=== PATIENT | female | born 1945 | race Caucasian/White ===

== ENCOUNTER → 2016-10-10 | Outpatient (CLI) | payer MEDICARE ==
[~2016-10-10] MED LIST: ALBUTEROL0.09 MG/A2 INH; AMLODIPINE10 MG; ANAPROX DS550 MG PO; ASPIRIN325 M2 PO; ASPIRIN81 M1 PO; B-1100 MG PO; B12,B-12,B 12500 MC1 PO; BALANCED B PO; CALCIUM 500 + D1 TA1 PO; CAPTOPRIL25 MG; CIPRO250 MG PO; CIPROFLOXACIN500 MG PO; CLINDAMYCIN HC300 MG PO; COREG3.125 MG PO; COUMADIN1 M1 PO; DARVOCET N 1001 TAB PO; DOCUSATE SODIU100 M2 PO; FLUOXETINE20 M1; FOLIC ACID1 MG PO; FOSAMAX70 M1 PO; HYDROCHLOROTHIA25 MG; HYDROCODONE BIT1 T11 PO; LIBRIUM10 MG PO; LOVASTATIN40 MG; MOTRIN800 MG PO; NORCO 325 MG-51 TAB PO; NORCO 5-325 TA1 EACH PO; POTASSIUM20 MEQ PO; PRAVACHOL20 MG PO; PRAVASTATIN SOD40 MG PO; PREDNICOT20 MG PO; TRAMADOL HCL50 MG PO; TRAMADOL50 MG PO; TRAZADONE HYDR100 MG PO; TRAZODONE HCL50 MG; TYLENOL W/CODEI1 TA2 PO; TYLENOL650 M1 PO; VICODIN 5/500 505 MG PO; VICODIN1 TAB PO; VITAMIN D50000 I3 PO; ZESTRIL20 MG PO; ZITHROMAX Z-PA250 MG PO
[2016-10-10 09:53] LABS: BASO # 0.1 10*3/uL (0.0-0.1); BASO % 0.7 % (0.0-1.0); EOS # 0.5 10*3/uL (0.0-0.4); EOS % 6.8 % (1.0-4.0); HEMATOCRIT 40.2 % (37.0-47.0); HEMOGLOBIN 13.1 g/dl (12.0-16.0); LYMPH # 1.1 10*3/uL (1.3-4.4); LYMPH % 14.7 % (27.0-41.0); MEAN CORPUSCULAR HGB CONC 32.6 g/dl (33.0-37.0); MEAN PLATELET VOLUME 10.7 fl (9.6-12.3); MONO # 0.7 10*3/uL (0.1-1.0); MONO % 9.1 % (3.0-9.0); NEUT # 5.2 10*3/uL (2.3-7.9); NEUT % 68.4 % (47.0-73.0); PLATELET COUNT AUTOMATED 186 10*3/uL (130-400); RED CELL DISTRI WIDTH 13.2 % (0-14.5); WHITE BLOOD COUNT 7.6 10*3/uL (4.8-10.8)
[2016-10-10 10:30] LABS: ALBUMIN 3.7 gm/dl (3.1-4.5); ALKALINE PHOSPHATASE 61 U/L (45-117); BILIRUBIN, TOTAL 0.2 mg/dl (0.2-1.0); BUN 13 mg/dl (7-24); CARBON DIOXIDE 28 mmol/L (21-32); CHLORIDE 105 mmol/L (98-107); CHOLESTEROL 198 mg/dL (<200); EST GLOM FILT AFRICAN AMERICAN > 60 ml/min; GLUCOSE 88 mg/dL (65-99); HDL CHOLESTEROL 65 mg/dl (40-60); LDL CHOLESTEROL 114 mg/dL (9-159); POTASSIUM 4.3 mmol/L (3.5-5.1); SGOT/AST 17 IU/L (3-35); SGPT/ALT 20 U/L (12-78); SODIUM 139 mmol/L (136-145); TOTAL PROTEIN 8.1 gm/dL (6.4-8.2); TRIGLYCERIDES 93 mg/dl (<150); VLDL CHOLESTEROL 19 mg/dL (6-40)
== END | disposition home or self-care (01) ==
LOC: LAB 09:29 → CT 13:00
PROVIDERS: Internal Medicine
DX: I48.0 Paroxysmal atrial fibrillation (principal); M54.5 Low back pain; E78.00 Pure hypercholesterolemia, unspecified; E55.9 Vitamin D deficiency, unspecified; G25.0 Essential tremor

== ENCOUNTER 2017-02-10 17:30 | Emergency (ER) | payer MEDICARE ==
[~2017-02-10] VITALS: Ht 167.6 cm; Wt 49.9 kg
[2017-02-10] MEDS ORDERED: CLINDAMYCIN150 MG PO (17:49)
== END 2017-02-10 18:23 | disposition home or self-care (01) ==
LOC: ED 17:30
DX: S61.412A Laceration without foreign body of left hand, initial encounter (principal); F17.200 Nicotine dependence, unspecified, uncomplicated; E78.5 Hyperlipidemia, unspecified; I10 Essential (primary) hypertension; M19.90 Unspecified osteoarthritis, unspecified site; Z86.73 Personal history of transient ischemic attack (TIA), and cerebral infarction without residual deficits; Z79.82 Long term (current) use of aspirin; Z79.899 Other long term (current) drug therapy; Z79.01 Long term (current) use of anticoagulants; Z88.0 Allergy status to penicillin; W26.0XXA Contact with knife, initial encounter; Y93.89 Activity, other specified; Y92.89 Other specified places as the place of occurrence of the external cause; Y99.9 Unspecified external cause status

== ENCOUNTER 2017-04-17 21:17 | Inpatient (IN) | payer MEDICARE ==
[~2017-04-17] VITALS: Ht 167.6 cm; Wt 47.6 kg
--- NOTE | ~2017-04-17 | PR ---
[place], [place] PROGRESS NOTE NAME: VINICIUS RODNEY [facility] #: [id number] UNIT #: [id number] ROOM: 509 DOCTOR: LINDA TORO MD,TAWNYA BIRTHDATE: [birth year] DOS: 04/24/2017 SUBJECTIVE: She had a bronchoscopy completed yesterday. Significant reduction and improvement in the cough and sputum clearance noted. Shortness of breath has been improving. Currently, the patient has been using oxygen supplementation with nasal cannula. OBJECTIVE: VITAL SIGNS: Normal temperature, respiratory rate 18, ____ 63, blood pressure 144/60-129/84. The pulse oxygen saturation on 3 liters nasal cannula 95% saturation. HEENT: Shows no new change. NECK: Supple. CARDIOVASCULAR: S1, S2 audible. LUNGS: The patient noted with [id number] decreased breath sounds bilaterally. ABDOMEN: Soft, nontender. LABORATORY DATA: The chest x-ray of the patient that was done was reviewed. Improvement with aeration for the patient were noted of the left lower lobe; however area of atelectasis still noted. The patient not completely resolved. Rib fractures noted for this patient. Very small left pleural fluid was visible. The remaining culture of the bronchial washing were noted without any bacterial growth for this patient at this time. Final culture results were pending. Gram stain of the bronchial washing yesterday was noted with many white blood cells, moderate epithelial cells. CBC of this morning for this patient's WBC count was noted normal, hemoglobin 9.9, hematocrit 30.8, platelet count was normal. BMP of the patient, BUN 70, creatinine was normal. IMPRESSION: 1. The patient with acute bacterial pneumonia with area of superimposed atelectasis status post bronchoscopy with mucus plug partial improvement was noted. The debridement cultures of the bronchial washing noted normal erickson. 2. Acute severe hypoxic respiratory failure, resolving gradually. 3. Recent rib fractures for this patient related to her fall. 4. Left pleural fluid related to current acute bacterial pneumonia. The pleural fluid noted small at this time would not require any thoracentesis. PLAN OF MANAGEMENT: Monitor culture results. Possible consideration of assisted facility to home discharge with home health by tomorrow. Oxygen sats on this patient has been ordered to be done prior to consideration of discharge planning. Other supportive plan of therapy to be continued. Usual care, other supportive plan of therapy and care. Additional treatment changes can be made based on progression of illness. Monitor cultures of the bronchial washings prior to consideration making any further changes in the treatment. [place], [place] PROGRESS NOTE NAME: VINICIUS RODNEY UNIT #: [id number] ROOM: [facility] DOCTOR: TAWNYA BUSTAMANTE MD BIRTHDATE: [birth year] TAWNYA MCKEON MD CM:YOUNG [id number] TAWNYA TORO MD 04/24/17 1408 interface
--- NOTE | ~2017-04-17 | PR ---
[place], [place] PROGRESS NOTE [id number] UN[facility] #: [id number] ROOM: 509 DOCTOR: LINDA TORO MD,TAWNYA BIRTHDATE: [birth year] DOS: 04/21/2017 SUBJECTIVE: She has been noted with same symptoms, has a cough, which remains nonproductive. Denies any symptoms of hemoptysis. Chest pain was described on the right side, which remains unchanged. OBJECTIVE: VITAL SIGNS: Recorded and show normal temperature, respiratory rate 20, heart rate 66, blood pressure 115/65. Pulse oxygen saturation on 6 L nasal cannula 94% saturation. HEENT: Shows no new change. NECK: Supple. CARDIOVASCULAR: S1, S2 audible. LUNGS: Noted decreased breath sounds, right lower lung. ABDOMEN: Soft, nontender. EXTREMITIES: Show no edema. LABORATORY DATA: CBC on 04/21/2017, WBC count 11.2, hemoglobin 11.3, hematocrit 34.0, and platelet count was normal. BMP that was done today showed normal BUN. BUN 29, creatinine was normal. PT/INR 3.5. Remaining electrolytes were normal. CT scan of the chest, which was ordered yesterday, there was no evidence of pulmonary embolism. Area of acute infiltration and consolidation noted in the right lower lobe, explains the patient's current acute deterioration of respiratory status and hypoxia. Some fluid was also noted in the right main stem bronchus. The patient most likely retained secretions, inability to expectorate. Evidence of centrilobular emphysema changes was also noted. Significant area of consolidation and infiltration was noted in the right lower lobe as well as the left lower lobe. Area of atelectasis debris in the lungs was noted as well as nodular infiltration was also noted. Right-sided rib fractures remained stable. IMPRESSION: 1. The patient has been noted with persistent acute severe hypoxic respiratory failure. 2. Infiltration in the lower lobe, acute pneumonia suspected as well as area with ____, inability to expectorate and clear secretions secondary to the current rib fractures. Overall severe debility was also noted as well. The PT/INR that was done today noted therapeutic. PLAN OF TREATMENT: Discontinue Coumadin for the patient. Plan bronchoscopy on Sunday morning for this patient. Continue current antibiotic, incentive spirometry as tolerated. Adequate pain management and other treatment. The risks and benefits of procedure have been discussed with the patient and she was agreeable for the procedure. [place], [place] PROGRESS NOTE NAME: TEREZA RODNEYJesus Rowley UNIT #: [id number] ROOM: [facility] DOCTOR: TAWNYA BUSTAMANTE MD BIRTHDATE: [birth year] TAWNYA MCKEON MD CM:PNMARGIE [id number] TAWNYA TORO MD 04/22/1731 interface
--- NOTE | ~2017-04-17 | PR ---
[place], [place] PROGRESS NOTE NAME: VINICIUS RODNEY UNIT #: [id number] ROOM: 509 DOCTOR: LINDA TORO MD,TAWNYA BIRTHDATE: [birth year] DOS: 04/23/2017 SUBJECTIVE: She has been noted with cough and produce moderate amount of sputum last night. She is currently noted n.p.o. past midnight for bronchoscopy that was planned for today. She denies any symptoms of hemoptysis or chest pain. The patient noted stable. OBJECTIVE: VITAL SIGNS: For the patient, which have recorded shows normal temperature, respiratory rate 20, heart rate 70, blood pressure 135/75 this morning. The pulse oxygen saturation on 1 liter nasal cannula 95% saturation, on 2 liters 95% saturation. HEENT: Examination shows no acute change. NECK: Supple. CARDIOVASCULAR: S1, S2 audible. LUNGS: The patient was noted with decreased breath sounds in the lungs bilaterally, scattered wheezing. No crackles. ABDOMEN: Soft, nontender. LABORATORY DATA: INR today was noted 1.6, which is subtherapeutic. IMPRESSION: 1. The patient with ____ fracture. The patient nondisplaced closed fractures after a fall on the right side. 2. Acute pneumonia and superimposed area of atelectasis. The patient off the left lower lobe as well. 3. Pneumonia in the right lower lobe as well. 4. Chronic anticoagulation, which has been currently noted and hold subtherapeutic for the bronchoscopy. 5. Acute severe hypoxic respiratory failure, which has been gradually improving. PLAN OF TREATMENT: Proceed with the bronchoscopy the patient as previously planned for this patient today. Continuation of the other previous treatment, therapy, plan and management as well. Usual care with the addition of treatment changes. The patient will be made based on progression of illness. Continue current antibiotics. Resumption of the Coumadin for this patient after the completion of bronchoscopy for this patient if it is uneventful. Other supportive therapy, plan of management care and plan. Continue bronchodilators and other treatment. We have to repeat chest x-ray in the morning to reassess the improvement in the atelectasis after completion of bronchoscopy. [place], [place] PROGRESS NOTE NAME: VINICIUS RODNEY UNIT #: [id number] ROOM: 509 DOCTOR: TAWNYA BUSTAMANTE MD BIRTHDATE: [birth year] TAWNYA MCKEON MD CM:PNTRANS [id number] TAWNYA TORO MD 04/23/17 2344 interface
--- NOTE | ~2017-04-17 | PROC NOTE ---
[place], [place] PROCEDURE NOTE [id number] UNIT #: [id number] ROOM: 509 DOCTOR: LINDA TORO MD,TAWNYA BIRTHDATE: [birth year] DOS: 04/23/2017 PREOPERATIVE DIAGNOSES: 1. Persistent airway atelectasis with ____ secretions with current maximum medical therapy and chest trauma. 2. Pneumonia. POSTOPERATIVE DIAGNOSES: 1. Persistent airway atelectasis with ____ secretions with current maximum medical therapy and chest trauma. 2. Pneumonia. PROCEDURE DESCRIPTION: Informed consent obtained for the patient. The patient brought to the OR and placed in supine position. Conscious sedation administered by the Anesthesia Department. After achieving appropriate sedation, airway introduced into the mouth. Bronchoscope advanced into the airway into laryngeal area. Epiglottis and vocal cords were seen. Vocal cords moving symmetrically with movements. Bronchoscope advanced to the vocal cord and tracheal lumen. The tracheal lumen was identified and noted with moderate amount of thick mucus secretion was suctioned out with the help of normal saline wash. The nabeel was noted sharp. Right upper, right middle, right lower, left upper, lingular lower lobe bronchial openings were noted. Mucus impaction noted in the right lower lobe endobronchial tree, as the left lobe endobronchial tree, secretion suctioned out from the right and the left main stem bronchi as well. The bronchial washing was sent to the laboratory for all the necessary culture. Procedure well tolerated by the patient without any complications. Postoperative findings will be discussed with the patient once the patient recovers from the effects of acute sedation. No changes in the treatment otherwise will be necessary. The patient's Coumadin will be resumed from this afternoon and the chest x-ray was ordered to be done tomorrow morning. TAWNYA MCKEON MD CM:PROCNOTE:PROCEDURE NOTE [id number] TAWNYA TORO MD
--- NOTE | ~2017-04-17 | PR ---
[place], [place] PROGRESS NOTE NAME: VINICIUS RODNEY UNIT #: [id number] ROOM: 509 DOCTOR: TAWNYA BUSTAMANTE MD BIRTHDATE: [birth year] DOS: 04/22/2017 SUBJECTIVE: The patient has been noted with moderate amount of sputum expectoration, which was described to be thick, but the patient this morning still noted pain in the right chest. The patient controlled with pain medications. She was using incentive spirometry as much as possible. Other treatment, the patient plan has been continued as well. The anticoagulation remains on hold for bronchoscopy planned for tomorrow. There were no symptoms of hemoptysis. OBJECTIVE: VITAL SIGNS: Normal temperature, respiratory rate 18, heart rate 65, blood pressure 142/65. Pulse oxygen saturation 3 liters nasal cannula 94% saturation. HEENT: Examination shows no new change. NECK: Supple. CARDIOVASCULAR: S1, S2 audible. LUNGS: The patient was noted decreased breath sounds still noted in the lungs bilaterally. Occasional wheezing. There were no crackles. ABDOMEN: Soft, nontender. LABORATORY DATA: 1. INR today was noted 2.9, which has been gradually decreased from previous level. As the anticoagulation remains on hold for the bronchoscopy. Overall severe debility with protein-calorie malnutrition was suspected with loss of muscle mass. 2. History of past nicotine use. 3. Retained endobronchial secretions of the patient causing areas of atelectasis, respiratory failure. 4. Rib fractures. The patient was also noted after the fall. PLAN OF MANAGEMENT: Proceed with bronchoscopy tomorrow morning as planned. Keep the patient off anticoagulation. Monitor the PT/INR. Other supportive therapy, plan of management. Continuation of the incentive spirometry and flutter valve as tolerated. Continue optimal pain management. Addition of treatment changes to be made based on progression of the illness. [place], [place] PROGRESS NOTE NAME: VINICIUS RODNEY UNIT #: [id number] ROOM: 509 DOCTOR: TAWNYA BUSTAMANTE MD BIRTHDATE: [birth year] TAWNYA MCKEON MD CM:PNTRANS [id number] TAWNYA TORO MD 04/23/17 0426 interface
--- NOTE | ~2017-04-17 | CON ---
[place], [place] REPORT OF CONSULTATION NAME: VINICIUS RODNEY [facility] #: [id number] UNIT #: [id number] ROOM: 509 DOCTOR: TAWNYA BUSTAMANTE MD BIRTHDATE: [birth year] DOS: 04/19/2017 CONSULTATION REQUESTED BY: Hospitalist services. REASON FOR CONSULTATION: To assess the patient for recent fall with contusion of the lung and others. HISTORY OF PRESENT ILLNESS: This is a 71-year-old female patient who has been admitted to the hospital on 04/17/2017. The patient fell down at home, as she is trying to get a coffee on the table and hitting the right side of the chest. The patient landed on the ground. She has not lost any consciousness or dizziness. She has been noted history of imbalance secondary to these problems which has been known previously. She was complaining of pain, which is described in the right side of the chest at that time, which gets worse with deep inspiratory efforts. The patient does have a mild cough without any sputum expectoration. She does not have any symptoms of hemoptysis. The patient denies symptoms of wheezing. REVIEW OF SYSTEMS: CONSTITUTIONAL: Generalized weakness and fatigue, was described without symptoms of fever or chills. EYES: Denies any burning, redness, or tenderness. EARS, NOSE AND THROAT: Denies sore throat, hoarseness, otalgia, or postnasal drainage. CARDIOVASCULAR: Denies anginal pain, edema or pain of the lower extremities. GASTROINTESTINAL: Denies dysphagia, nausea, vomiting, diarrhea, abdominal pain, hematemesis, melena, or abnormal weight loss history. GENITOURINARY: Denies dysuria, suprapubic pain, or hematuria. MUSCULOSKELETAL: Denies any acute joint pain, redness, or tenderness. CENTRAL NERVOUS SYSTEM: History of past CVA, seizure, left side weakness. The patient noted partial and imbalance because of that as well. SKIN: Denies lesions or rashes. Remaining systems were reviewed with the patient and were noted all negative. PAST MEDICAL HISTORY: 1. History of aortic valve stenosis. 2. History of depression. 3. Acute congestive heart failure, diastolic dysfunction. 4. Essential tremor. 5. Frequent fall because of past CVA and imbalance. 6. History of hyperlipidemia. 7. Essential hypertension. 8. Osteoarthritis and osteoporosis. 9. History of atrial fibrillation. 10. Nicotine dependence and use of alcohol. SOCIAL HISTORY: The patient stated that she is and have 2 children, one of the child , smoking started at a younger age, a pack of cigarettes per day. Denies any history of alcohol use. Denies any history of other illicit drug use, has been noted history of alcohol use in the form of beer. [place], [place] REPORT OF CONSULTATION NAME: VINICIUS RODNEY UNIT #: [id number] ROOM: [facility] DOCTOR: TAWNYA BUSTAMANTE MD BIRTHDATE: [birth year] FAMILY HISTORY: The patient's father related to myocardial infarction at age of 6060 years old. HOME MEDICATIONS: Noted use of ProAir HFA inhaler p.r.n. use, clindamycin, [place], Coreg, vitamin B12, metformin, pravastatin, tramadol, lisinopril, aspirin, Coreg and trazodone. She was also taking the Fosamax, vitamin D, and vitamin B complex. DRUG ALLERGIES: PENICILLINS. PHYSICAL EXAMINATION GENERAL: This is a 71-year-old female who has been noted currently comfortable, lying in the bed without any distress. Height of 5 feet 6 inches, weight of 105 pounds, BMI 16.9. VITAL SIGNS: Shows a normal temperature, respiratory rate 18-16, heart rate of 68-74, blood pressure 196/88-153/60. Pulse oxygen saturation on 2 L nasal cannula of 95% saturation. HEENT: Shows head was atraumatic. Eyes nonicterus. NECK: Supple. CARDIOVASCULAR: S1, S2 audible. LUNGS: Noted without any wheezing or crackles at the present time. Breath sounds are noted decreased bilaterally. ABDOMEN: Flat, soft, nontender. EXTREMITIES: Shows no edema. GENITOURINARY: Weakness of the left upper and left lower extremity. SKIN: No lesions or rashes. MUSCULOSKELETAL: No major deformities. LABORATORY DATA: INR on 04/17/2017 is 2.9, which is therapeutic. CMP on 04/17/2017 on admission, normal BUN and creatinine, potassium 3.4, minimally decreased. Sodium mildly decreased to 134. Urine drug screen positive for THC. CT scan of the head without contrast on 04/17/2017 was noted without any acute intracranial pathologies. INR for this morning was 2.1. BMP yesterday was noted as normal. Troponin on admission and followup was noted normal. Review of the radiology data, the chest x-ray as well as the right rib series fracture noted with nondisplaced right rib fracture due to age, the was noted with the rib series x-rays. Increased interstitial marking noted in the lungs bilaterally. Right mid lung capacity was also noted with possibility of pulmonary contusion in the differential diagnosis. IMPRESSION: 1. The patient who has been currently admitted to the hospital after falling resulting in rib fracture, 5th, 6th, 7th and 8th nondisplaced with current blunt chest trauma after a fall associated with possibility of pulmonary contusion. 2. History of chronic anticoagulation noted therapeutic anticoagulation. There was no evidence of hemothorax was noted. 3. Chest pain. The patient currently described to be related to the current rib fracture is treated with the pain medication management. 4. History of chronic osteoporosis and osteoarthritis. [place], [place] REPORT OF CONSULTATION NAME: VINICIUS RODNEY UNIT #: [id number] ROOM: [facility] DOCTOR: TAWNYA BUSTAMANTE MD BIRTHDATE: [birth year] 5. History of chronic nicotine dependence and possibility of chronic obstructive pulmonary disease. PLAN OF MANAGEMENT: Incentive spirometry adequate pain control as use of bronchodilators, abstinence from the tobacco use and nicotine replacement patches. No need of use of antibiotics. Repeat another chest x-ray this morning, PA lateral view to assess for any interval development progression, contusion of any new abnormalities to be reviewed. Other supportive therapy, plan of management and care. She was also noted partially uncontrolled hypertension, which already managed with the medications. Mild hypokalemia noted on admission had been already corrected by the primary care physician. She will be started on the bronchodilators to continue to mobilize secretions as well. Additional treatment changes need to be made based on the progression of the illness. Thank you for allowing me to participate in the care of this patient. TAWNYA MCKEON MD CM:CONSTR:REPORT OF CONSULTATION 1324 04/20/17 0320 interface
--- NOTE | ~2017-04-17 | CON ---
[place], [place] REPORT OF CONSULTATION NAME[id number] UNIT #: [id number] ROOM: 509 DOCTOR: VIKTOR DUFFYGAILGUADALUPE BIRTHDATE: [birth year] DOS: 04/20/2017 REASON FOR CONSULTATION: Aortic stenosis. ASSESSMENT: 1. Incidental finding of aortic stenosis on physical exam/echocardiogram. 2. Bilateral carotid bruit. 3. Hypertension. 4. Active tobacco abuse. 5. Coumadin treatment for unknown reason cardiac-cruz. 6. Unknown level of lipids. PLAN: 1. Consider holding aspirin while patient on Coumadin. 2. Repeat echocardiogram in 1 year. 3. Check fasting lipid panel. 4. Bilateral carotid duplex. 5. Blood pressure management will be deferred to PCP. 6. The patient has been completely asymptomatic, and we will defer any further cardiac workup at this time. 7. Followup in our clinic within 3-6 months. HISTORY OF PRESENT ILLNESS: The patient is a pleasant 71-year-old female unknown to our practice, was referred by Dr. Arteaga for evaluation of aortic stenosis. Apparently, the patient was brought into the hospital by her daughter after tripping and falling down with some pain on the right side. Full workup has been negative so far. No preceding cardiac symptoms. Never had any chest pain, chest pressure, heaviness or tightness. Never had any symptomatic palpitation, associated dizziness, lightheadedness or near syncope. The patient lives alone with her daughter, though. She quit driving. Occasionally, she can go shopping. She has some unsteady gait since her hip fracture, which was about a couple of years ago. She does use a cane and occasionally a walker. No change in what she could do now compared with 6 months ago. Sleeps on one pillow with no reported PND, orthopnea or pedal edema. No fever, no chills, no night sweats. The patient reporting significant decrease in appetite and weight loss. This has been going on for the past year. PAST MEDICAL HISTORY: As detailed in my assessment. SOCIAL HISTORY: The patient continues to smoke currently about half pack a day. No heavy alcohol or illicit drug abuse. FAMILY HISTORY: Both parents . Patient's mother when she was 5 years old; she does not know much about her mom. Her father at age 70. She has 3 brothers with no reported heart problems. CURRENT MEDICATIONS: Rocephin, Z-Elbert, Lasix, Nicoderm, trazodone, Coumadin, Coreg, albuterol, lisinopril, aspirin, Ativan, Restoril, Zofran, [place], Tylenol. ALLERGIES: THE PATIENT IS ALLERGIC TO PENICILLIN. [place], [place] REPORT OF CONSULTATION NAME: VINICIUS RODNEY UNIT #: [id number] ROOM: [facility] DOCTOR: MILA HOANG MD BIRTHDATE: [birth year] REVIEW OF SYSTEMS: Currently, the patient denies any headache, diplopia or blurry vision. No fever, no chills, no night sweats. No abdominal pain, no blood per rectum or tarry stools. The patient admits to joint pain and muscular pain. No reported anxiety or depression. No polyuria, no polydipsia, no skin rash. Review of all other systems has been negative. PHYSICAL EXAMINATION: GENERAL: The patient is alert and oriented x 3, sitting up in bed, does not appear in distress, very pleasant. VITAL SIGNS: Blood pressure 154/64, heart rate 63, respiratory rate of 16, temperature 97.7. HEENT: Extraocular muscles intact. Pupils equal, round, reactive to light. Conjunctivae, no pallor. Throat, no petechiae. NECK: Good upstroke. Bruits could be heard on both carotids. No lymphadenopathy or thyromegaly. HEART: S1, S2 with a systolic ejection murmur right upper sternal border with what appeared to be a mid peaking preserved A2. No rub. No retrosternal heave. CHEST AND BACK: Mild kyphosis. LUNGS: Decreased air movement, but no em wheezing or rales. ABDOMEN: Soft, nontender, present bowel sounds, no masses, no bruits. LOWER EXTREMITIES: There is no edema with faint distal pulses. NEUROLOGIC: Grossly nonfocal. SKIN: No significant rash. Electrocardiogram showed normal sinus rhythm, mild nonspecific ST changes, no R-wave in the anterior leads. LABORATORY DATA: Potassium 3.9, GFR more than 60%, glucose 118. Troponin less than 0.015. Total cholesterol is 210, LDL 118, HDL 79. Normal thyroid function test. MILA HOANG MD CM:CONSTR:REPORT OF CONSULTATION 1112 04/21/17 0051 interface
--- NOTE | ~2017-04-17 | PR ---
[place], [place] PROGRESS NOTE NAME: VINICIUS RODNEY UNIT #: [id number] ROOM: 509 DOCTOR: LINDA TORO MD,TAWNYA BIRTHDATE: [birth year] DOS: 04/20/2017 PULMONARY PROGRESS NOTE SUBJECTIVE: She was still complaining of pain in the chest. She was noted with coughing intermittently with some sputum expectoration, but the sputum expectoration noted minimal. Wheezing was noted decreased. Denies any symptoms of hemoptysis. OBJECTIVE: VITAL SIGNS: Shows normal temperature, respiratory rate 18, heart rate 73, and blood pressure 154/64-144/70. Intake is 840, output 900 mL. Pulse oxygen saturation on 6 L nasal cannula 96%, saturation on 2 L previous 90% saturation. HEENT: No acute change. NECK: Supple. CARDIOVASCULAR: S1, S2 audible. LUNGS: Noted generally decreased breath sounds in the lungs bilaterally. ABDOMEN: Soft, nontender, bowel sounds present. EXTREMITIES: Shows no edema, clubbing or cyanosis. LABORATORY DATA: Chest x-ray of the patient that was done yesterday 2-views reviewed, shows interval development of a small right-sided pleural fluid. The patient without any pneumothorax, right rib fracture was noted as well. IMPRESSION: 1. The patient with possibility of small hemothorax was noted on the current chest x-ray developed since admission. 2. Acute respiratory failure, worsening of the hypoxia noted with increased oxygen requirement. 3. Nondisplaced fracture from 5th to 8th after current trauma. 4. Acute bronchitis and chronic obstructive pulmonary disease as well. PLAN OF MANAGEMENT: All other CT scan of the chest today to assess the patient's current chest x-ray abnormality, worsening of respiratory status for the assessment pneumothorax and pulmonary contusion other problems. In the meantime, continue the patient on bronchodilators and oxygen supplementation. Continue adequate pain management. Continue antibiotics for possibility of superimposed pneumonia for the patient, cannot be completely excluded. Other supportive therapy, plan of management. Change in treatment will be made for this patient based on progression of the illness. Assess the CT scan of the chest that will be completed to determine any further intervention if necessary. [place], [place] PROGRESS NOTE NAME: VINICIUS RODNEY UNIT #: [id number] ROOM: 509 DOCTOR: TAWNYA BUSTAMANTE MD BIRTHDATE: [birth year] TAWNYA MCKEON MD CM:PNTRANS [phone] TAWNYA TORO MD 04/20/17 1700 interface
[~2017-04-17 21:17] MED LIST changes: +CLINDAMYCIN150 MG PO; -POTASSIUM20 MEQ PO; +POTASSIUM99 M5 PO
[2017-04-17 21:25] VITALS: BP 174/88
[2017-04-17 22:30] LABS: BASO # 0.1 10*3/uL (0.0-0.1); BASO % 0.4 % (0.0-1.0); EOS # 0.3 10*3/uL (0.0-0.4); EOS % 2.3 % (1.0-4.0); HEMATOCRIT 36.8 % (37.0-47.0); HEMOGLOBIN 12.4 g/dl (12.0-16.0); LYMPH % 7.8 % (27.0-41.0); MEAN CELL VOLUME 94.6 fl (81.0-99.0); MEAN CORPUSCULAR HGB 31.9 pg (27.0-31.0); MEAN CORPUSCULAR HGB CONC 33.7 g/dl (33.0-37.0); MEAN PLATELET VOLUME 10.8 fl (9.6-12.3); MONO # 0.6 10*3/uL (0.1-1.0); MONO % 4.7 % (3.0-9.0); NEUT # 11.2 10*3/uL (2.3-7.9); NEUT % 84.6 % (47.0-73.0); PLATELET COUNT AUTOMATED 165 10*3/uL (130-400); RED BLOOD COUNT 3.89 10*6/uL (4.10-5.10); RED CELL DISTRI WIDTH 13.2 % (0-14.5); WHITE BLOOD COUNT 13.3 10*3/uL (4.8-10.8)
[2017-04-17 22:46] LABS: ALBUMIN 3.7 gm/dl (3.1-4.5); ALKALINE PHOSPHATASE 66 U/L (45-117); BUN 6 mg/dl (7-24); CHLORIDE 100 mmol/L (98-107); CREATININE 0.52 mg/dL (0.55-1.02); LIPASE 170 U/L (73-393); MAGNESIUM 1.9 mg/dL (1.5-2.1); POTASSIUM 3.4 mmol/L (3.5-5.1); SGOT/AST 18 IU/L (3-35); SGPT/ALT 15 U/L (12-78); SODIUM 135 mmol/L (136-145); TOTAL PROTEIN 7.9 gm/dL (6.4-8.2)
[2017-04-17 22:47] LABS: INTERNATIONAL NORM RATIO 2.9 (2.0-3.5)
[2017-04-17 22:49] LABS: TROPONIN I < 0.015 ng/ml (<0.045)
[2017-04-17 22:54] LABS: BILIRUBIN NEGATIVE (NEGATIVE); BLOOD NEGATIVE (NEGATIVE); CLARITY CLEAR (CLEAR); COLOR YELLOW (YELLOW); GLUCOSE NEGATIVE (NEGATIVE); KETONE NEGATIVE (NEGATIVE); LEUKO ESTERASE NEGATIVE (NEGATIVE); NITRITE NEGATIVE (NEGATIVE); UROBILINOGEN 0.2 E.U./dl (0.2-1.0)
[2017-04-17 23:04] LABS: WBC 0-2 wbc/hpf (0-5)
[2017-04-17 23:05] LABS: URINE AMPHETAMINES < 1000 (1000ng/ml); URINE BARBITURATES < 200 (200ng/ml); URINE BENZODIAZEPINES < 200 (200ng/ml); URINE CANNABINOIDS (THC) > 50 (50ng/ml); URINE COCAINE < 300 (300ng/ml); URINE METHADONE < 300 (300ng/ml); URINE OPIATES < 300 (300ng/ml)
[2017-04-17 23:07] LABS: URINE PHENCYCLIDINE < 25 (25ng/ml)
[2017-04-17 23:32] VITALS: BP 157/85
[2017-04-17] MEDS ORDERED: WARFARIN SODIUM6 MG PO (23:45)
[2017-04-17] MEDS ORDERED: CARVEDILOL6.25 MG PO (23:46)
[2017-04-17] MEDS ORDERED: OYSTER SHELL C1 EAC1 PO (23:48)
[2017-04-18] VITALS: BP 175/89
--- NOTE | 2017-04-18 | NUR ---
A 71, admitted to 5E, under the services of KIMMIE Alicea DO with a diagnosis of RIB FX, ALCOHOL INTOX. Chief complaint is FALL. Patient arrived via bed from ER. Monitor applied. Initial assessment completed. Vital signs taken and recorded. KIMMIE ALICEA DO notified of admission to the unit. Orders received. See assessment for past medical history, medications and allergies. Patient and/or family oriented to unit. visitation policy reviewed. Clothing/patient valuable form completed. SASHA SAUL
--- NOTE | 2017-04-18 00:36 | NUR ---
CALLED AND MADE DR LOPEZ AWARE THAT ORTHOS NEGATIVE AND MED REC UP TO DATE
--- NOTE | 2017-04-18 00:57 | NUR ---
MEDICATED WITH PRN NORCO FOR C/O RIGHT RIB PAIN. RATES 03/25
--- NOTE | 2017-04-18 02:08 | NUR ---
PT ASSISTED TO BATHROOM AT THIS TIME, [facility]
[2017-04-18 04:38] LABS: BASO # 0.1 10*3/uL (0.0-0.1); BASO % 0.4 % (0.0-1.0); EOS # 0.1 10*3/uL (0.0-0.4); EOS % 1.2 % (1.0-4.0); HEMATOCRIT 36.3 % (37.0-47.0); HEMOGLOBIN 12.1 g/dl (12.0-16.0); LYMPH # 1.3 10*3/uL (1.3-4.4); LYMPH % 11.5 % (27.0-41.0); MEAN CELL VOLUME 93.8 fl (81.0-99.0); MEAN CORPUSCULAR HGB 31.3 pg (27.0-31.0); MEAN CORPUSCULAR HGB CONC 33.3 g/dl (33.0-37.0); MEAN PLATELET VOLUME 10.5 fl (9.6-12.3); MONO # 0.9 10*3/uL (0.1-1.0); MONO % 7.7 % (3.0-9.0); NEUT # 8.9 10*3/uL (2.3-7.9); NEUT % 78.9 % (47.0-73.0); PLATELET COUNT AUTOMATED 160 10*3/uL (130-400); RED BLOOD COUNT 3.87 10*6/uL (4.10-5.10); WHITE BLOOD COUNT 11.2 10*3/uL (4.8-10.8)
[2017-04-18 04:47] LABS: INTERNATIONAL NORM RATIO 2.8 (2.0-3.5)
[2017-04-18 05:08] LABS: BUN 7 mg/dl (7-24); CHLORIDE 103 mmol/L (98-107); CHOLESTEROL 210 mg/dL (<200); HDL CHOLESTEROL 79 mg/dl (40-60); LDL CHOLESTEROL 118 mg/dL (9-159); PHOSPHOROUS 2.7 mg/dL (2.5-4.9); POTASSIUM 3.9 mmol/L (3.5-5.1); SODIUM 138 mmol/L (136-145); TRIGLYCERIDES 66 mg/dl (<150); VLDL CHOLESTEROL 13 mg/dL (6-40)
[2017-04-18 07:03] LABS: VITAMIN D, 25-HYDROXY 32.5 ng/mL (30-100)
[2017-04-18 08:00] VITALS: BP 196/88
--- NOTE | 2017-04-18 08:34 | NUR ---
PATIENT COMPLAIS OF PAIN IN RIGHT RIBS, PAIN 8/10. PAIN MEDICATION GIVEN PER ORDER.
--- NOTE | 2017-04-18 09:00 | NUR ---
Bit Grinder in to talk to patient. Patient states lives at home with alone. There are no steps in the home. Physician: kamila escobar [facility]acy[facility] Home health services: none Patient's level of ADLs: MINIMAL ASSIST Patient has working utilities: all working DME: cane Follow-up physician's appointment after d/c: will be made by hospitalist nurse director upon discharg Does patient want to access PORTAL?: lily Discharge plan discussed with patient, patient lives at [facility], she has had a fall and is slow to ambulate, discussed with her a short term [facility] for rehab prior to going back home and she refused, stated that her daughter helps her every day, she states she has a cane and walker at home and uses them frequently, also discussed with her VNA and she also refused this, again stated that her daughter will help her with whatever she needs. case management will follow. ANGEL CARLIN
--- NOTE | 2017-04-18 09:15 | NUR ---
PAIN MEDICATION EFFECTIVE, PAIN 5/10
--- NOTE | 2017-04-18 11:34 | NUR ---
PHYSICAL THERAPY Physical Therapy Evaluation completed this date. See eval document for complete details. Will begin PT intervention to address the impairments of muscle weakness, decreased functional mobility I, and difficulty ambulating. Recommend SNF on d/c. [place] [address] based on chart review and PT qi Smith, PT
--- NOTE | 2017-04-18 11:36 | NUR ---
Occupational Therapy evaluation completed this date on 5 with full eval to follow. Precautions includ high fall risk, new ww use, severe rib pain, coumadin,moderate complexity level 80526. Recommend SNF upon d/c to enable safe and independent return home alone. If patient refuses then 24 hr supervision and OT,PT,SN. Thank you for this referral. Laura Ryder OTR/L
--- NOTE | 2017-04-18 11:50 | NUR ---
DR MCKEON NOTIFIED OF CONSULT.
[2017-04-18 12:00] VITALS: BP 167/64
--- NOTE | 2017-04-18 12:21 | NUR ---
PHYSICAL THERAPY Maria R seen this PM 1:1 for her therapy gait, Pt was up in her bedside chair, on 3 L o2. Went over with Pt on what we were going to do this PM. Pt having right rib fractures and right lung contusion. Transfer sit/stand and standing balance MOD A X 1. Followed by gait with wheeled walker slow 80' X 1, with verbal cueing fpor gait, walker, turn safety and no LOB this visit. Pt back up in her bedside chair short rest, followed by act Ex to bilateral LE of marching, LAQ's, ankle pumps with cueing for each Ex X 20 reps and MariaR did not get SOB with this. AZUL RUIZ ROLLED HAM LACER.
--- NOTE | 2017-04-18 14:32 | NUR ---
PATIENT SEEN 1:1 30 MINUTES THIS DATE. PATIENT IDENTIFIED BY NAME AND DATE OF . PATIENT COMPLETED SIT TO STAND RECLINER COREY AND AMBULATION USE FWW COREY TO BATHROOM. PATIENT COMPLETED TOILETING COREY TO PULL PANTS OVER B HIPS. COMPLETED GROOMING STANDING AT SINK COREY WITH MIN VERBAL CUES SAFETY USE FWW AND PROPER HAND PLACEMENT. PATIENT COMPLETED BUE STR ALL PLANES X 10 REPS SEATED WITH MOD VERBAL CUES TECHNIQUE AND FORM WITH C/O FATIGUE. EDUCATED PATIENT PURSE LIP BREATHING FOR ENERGY CONSERVATION. PATIENT COMPLETED BED MOBILITY SIT TO SUPINE COREY WITH VERBAL INSTRUCITON TECHNIQUE AND FORM. PATIENT CALL LIGHT WITHIN REACH. CRYSTAL ORELLANA/Chloe
[2017-04-18 16:00] VITALS: BP 156/72
--- NOTE | 2017-04-18 20:00 | NUR ---
ASSUMED CARE OF PATIENT. ASSESSMENT COMPLETE. CALL LIGHT IN [facility]. WILL CONTINUE TO MONITOR.
[2017-04-18 20:59] VITALS: BP 176/86
--- NOTE | 2017-04-18 21:04 | NUR ---
CALLED AND SPOKE TO DR SOLIS REGARDING BP 176/86. HE STATES HE WILL PUT AN ORDER IN FOR HYDRALAZINE
--- NOTE | 2017-04-18 21:15 | NUR ---
IV HYDRALAZINE GIVEN PER ORDER AT THIS TIME. ALSO MEDICATED WITH PRN NORCO FOR C/O RIGHT RIB PAIN AND ABDOMINAL PAIN. RATES 04/24.
--- NOTE | 2017-04-18 22:21 | NUR ---
BP RECHECK 138/64. AT THIS TIME PT ALSO STATES EARLIER NORCO EFFECTIVE FOR PAIN RELIEF.
--- NOTE | 2017-04-18 22:37 | NUR ---
PT C/O NAUSEA AND DRY HEAVES. MEDICATED WITH PRN ZOFRAN.
[2017-04-19] VITALS: BP 169/78
--- NOTE | 2017-04-19 01:00 | NUR ---
PT RESTING QUIETLY IN BED AT THIS TIME. NO S/S OF DISTRESS NOTED.
--- NOTE | 2017-04-19 02:18 | NUR ---
24 HR chart check completed.
[2017-04-19 07:17] LABS: INTERNATIONAL NORM RATIO 2.1 (2.0-3.5)
[2017-04-19 08:00] VITALS: BP 173/80
--- NOTE | 2017-04-19 08:15 | NUR ---
PT WAS GIVEN 2MG OF MORPHINE AT 0814 FOR A PAIN LEVEL OF 9 D/T RIB FX.
--- NOTE | 2017-04-19 08:30 | NUR ---
REEVALUATED PT PAIN LEVEL POST MORPHINE ADMINISTRATION. PATIENT STATES PAIN LEVEL STILL AT A 9, BUT LESS SHARP. RESPIRATIONS WNL.
--- NOTE | 2017-04-19 09:00 | NUR ---
case management visits with patient, again discussed with her a short term senior care, she was receptive to this, she chose [facility], shoe planner will make referral to [facility], patient will need an insurance precert prior to going to [facility]
--- NOTE | 2017-04-19 10:11 | NUR ---
PHYSICAL THERAPY Patient presented to therapy supine in bed. Patient reports having 10/10 pain in the R RIB CAGE. Patient agrees to therapyy. Patient transferred supine to sitting at EOB with Min. A X 1. Patient is on 2 liters of spO2. Patient transferred sit to stand with CGA X 1. Patient ambulated 220' x 1 with W/W and CGA X 1 with 2 liters of spO2. Patient then performed AROM seated Daniel. LE ther ex x 20 reps each. Patiwent was left in seated position with call light within reach. Patient was 1:1 with this SURVEILLANCE MANAGER for 25 minutes total. Chemo [place] SURVEILLANCE MANAGER
--- NOTE | 2017-04-19 11:07 | NUR ---
Patient asked to be referred to [facility] for short term rehab. Contacted [facility] and faxed referral, will require precert.
[2017-04-19 12:00] VITALS: BP 153/60
--- NOTE | 2017-04-19 12:57 | NUR ---
Patient has been accepted to [facility] exemption completed online in hens system. Waiting for precert.
[2017-04-19 16:00] VITALS: BP 179/87
--- NOTE | 2017-04-19 16:19 | NUR ---
PT MEDICATED FOR PAIN RATED A 9/10 IN THE RIBS WITH 2MG MORPHINE AT 1557.
--- NOTE | 2017-04-19 16:20 | NUR ---
ZOFRAN GIVEN FOR NAUSEA AT 1610.
[2017-04-19 20:00] VITALS: BP 148/73
--- NOTE | 2017-04-19 21:01 | NUR ---
PATIENT MEDICATED SLOWLY WITH MORPHINE 2 MG IV PER PRN ORDER FOR C/O RIB PAIN . RATED PAIN A 9/10 WITH 10 BEING THE WORST. SEE EMAR. REINFORCED USE OF CALL LIGHT.
--- NOTE | 2017-04-19 22:30 | NUR ---
PATIENT RESTING QUIETLY. NO FURTHER C/O VOICED.
[2017-04-20] VITALS: BP 144/70
--- NOTE | 2017-04-20 00:31 | NUR ---
PATIENT MEDICATED WITH NORCO PER PRN ORDER FOR C/O RIB PAIN. RATED PAIN A 9/10 WITH 10 BEING THE WORST. SEE EMAR/ REINFORCED USE OF CALL LIGHT.
[2017-04-20 06:20] LABS: BASO % 0.1 % (0.0-1.0); HEMOGLOBIN 12.2 g/dl (12.0-16.0); LYMPH # 0.8 10*3/uL (1.3-4.4); LYMPH % 5.4 % (27.0-41.0); MEAN CELL VOLUME 95.1 fl (81.0-99.0); MEAN CORPUSCULAR HGB 31.4 pg (27.0-31.0); MEAN PLATELET VOLUME 11.6 fl (9.6-12.3); MONO # 0.8 10*3/uL (0.1-1.0); MONO % 5.8 % (3.0-9.0); NEUT # 12.4 10*3/uL (2.3-7.9); NEUT % 88.3 % (47.0-73.0); PLATELET COUNT AUTOMATED 138 10*3/uL (130-400); RED BLOOD COUNT 3.89 10*6/uL (4.10-5.10); RED CELL DISTRI WIDTH 13.3 % (0-14.5)
[2017-04-20 06:48] LABS: BUN 19 mg/dl (7-24); CHLORIDE 102 mmol/L (98-107); CREATININE 0.54 mg/dL (0.55-1.02); POTASSIUM 3.9 mmol/L (3.5-5.1); SODIUM 135 mmol/L (136-145)
--- NOTE | 2017-04-20 07:52 | NUR ---
PT GIVEN 2MG OF MORPHINE AT 0751 D/T PAIN LEVEL 9/10 WITH SHARP QUALITY IN THE RIBS DURING RESPIRATION.
[2017-04-20 08:00] VITALS: BP 154/64
--- NOTE | 2017-04-20 08:15 | NUR ---
PT REASSESSED AT 812, CLAIMS PAIN LEVEL DECREASED FROM 9/10 TO 8/10 AND WAS LESS SHARP IN QUALITY UPON RESPIRATION.
--- NOTE | 2017-04-20 09:00 | NUR ---
case management visits with patient, patient will be going to [facility] when insurance precert is obtained
--- NOTE | 2017-04-20 09:26 | NUR ---
NOTIFIED DR MOSLEY OF REQUEST OF CONSULT.
--- NOTE | 2017-04-20 11:35 | NUR ---
NURSING REPORTS PATIENT EXPERIENCING DIFFICULTY MAINTAINING 02 SATS WITH ACTIVITY. NURSING REPORTS TO HOLD ON THERAPY IN AM AND TRY BACK LATER DATE. CRYSTAL ORELLANA/Chloe
[2017-04-20 12:00] VITALS: BP 155/65
--- NOTE | 2017-04-20 12:46 | NUR ---
PHYSICAL THERAPY Maria R seen this AM 1:1 and Pt's nurse present. Pt was given morphine for pain. Her nurse said that Maria R's o2 stats were droping and will hold AM therapy treatment. AZUL RUIZ DUST MIXER.
--- NOTE | 2017-04-20 12:49 | NUR ---
PHYSICAL THERAPY Back this PM to see Maria R for her therapy, nurse present. Pt on durbin mask at 50% and 11 L o2. There working on keeping Pt's o2 stats up at this time, no PM therapy at this time. AZUL RUIZ ADVANCED MANAGER.
--- NOTE | 2017-04-20 12:52 | NUR ---
Patient received auth to go to [facility] and can go today if medically stable for discharge.
--- NOTE | 2017-04-20 15:12 | NUR ---
PATIENT MEDICATED WITH IV MOPRHINE AT THIS TIME UPON REQUEST FOR COMPLAINTS OF RIGHT SIDED RIB & ARM PAIN 03/25. WILL MONITOR FOR EFFECTIVENESS.
--- NOTE | 2017-04-20 15:40 | NUR ---
PER PATIENT, MEDICATION EFFECTIVE.
[2017-04-20 16:00] VITALS: BP 101/72
--- NOTE | 2017-04-20 19:45 | NUR ---
DR. MCKEON CALLED. GIVEN RESULTS OF CTA. ORDERS RECEIVED.
[2017-04-20 20:00] VITALS: BP 126/58
[2017-04-21] VITALS: BP 99/53
--- NOTE | 2017-04-21 01:30 | NUR ---
Patient resting quietly with no c/o discomfort. Respirations easy and regular. Vital signs stable. No overt distress. ANGELA HANCOCK
--- NOTE | 2017-04-21 03:38 | NUR ---
PATIENT MEDICATED WITH NORCO PER PRN ORDER FOR C/O RIB PAIN. RATED PAIN A 8/10 WITH 10 BEING THE WORST. SEE EMAR. REINFORCED USE OF CALL LIGHT.
[2017-04-21 06:13] LABS: BASO % 0.2 % (0.0-1.0); EOS # 0.1 10*3/uL (0.0-0.4); EOS % 1.1 % (1.0-4.0); HEMOGLOBIN 11.3 g/dl (12.0-16.0); LYMPH # 0.9 10*3/uL (1.3-4.4); LYMPH % 8.4 % (27.0-41.0); MEAN CELL VOLUME 95.8 fl (81.0-99.0); MEAN CORPUSCULAR HGB 31.8 pg (27.0-31.0); MEAN CORPUSCULAR HGB CONC 33.2 g/dl (33.0-37.0); MEAN PLATELET VOLUME 11.3 fl (9.6-12.3); MONO # 0.7 10*3/uL (0.1-1.0); MONO % 5.8 % (3.0-9.0); NEUT # 9.5 10*3/uL (2.3-7.9); NEUT % 84.1 % (47.0-73.0); PLATELET COUNT AUTOMATED 134 10*3/uL (130-400); RED BLOOD COUNT 3.55 10*6/uL (4.10-5.10); RED CELL DISTRI WIDTH 13.5 % (0-14.5); WHITE BLOOD COUNT 11.2 10*3/uL (4.8-10.8)
[2017-04-21 06:34] LABS: CHLORIDE 99 mmol/L (98-107); CREATININE 0.67 mg/dL (0.55-1.02); POTASSIUM 3.7 mmol/L (3.5-5.1); SODIUM 136 mmol/L (136-145)
[2017-04-21 06:39] LABS: BUN 29 mg/dl (7-24)
[2017-04-21 06:40] LABS: INTERNATIONAL NORM RATIO 3.5 (2.0-3.5)
[2017-04-21 08:00] VITALS: BP 107/68
--- NOTE | 2017-04-21 08:00 | NUR ---
IN BED RESTING QUIETLY. ORIENTED X3, C/O RIB PAIN OF 8/10. DENIES ANY OTHER COMPLAINTS. ENCOURAGED TO USE I.S., TO GET OOB AND TO WALK. NO S/S OF DISTRESS. WILL CONT TO MONITOR. CALL LIGHT IN REACH. SEE ASSESS.
[2017-04-21 12:00] VITALS: BP 115/65
--- NOTE | 2017-04-21 15:22 | NUR ---
norco given for c/o pain to ribs of 02/22. will cont to monitor. call light in reach.
[2017-04-21 16:00] VITALS: BP 105/53
--- NOTE | 2017-04-21 16:22 | NUR ---
NORCO EFF FOR PAIN. WILL CONT TO MONITOR.
--- NOTE | 2017-04-21 19:30 | NUR ---
ASSUMED CARE OF PT AT THIS TIME, RESPS EASY AND NONLABORED WITH NO S/S OF DISTRESS, CALL LIGHT WITH IN REACH
[2017-04-21 20:00] VITALS: BP 102/50
--- NOTE | 2017-04-21 21:20 | NUR ---
PT C/O RIB PAIN REQUESTED AND ADMINSITERED NORCO 5/325MG PO PRN PER ORDERS, WILL MONITOR EFFECTS
--- NOTE | 2017-04-21 22:40 | NUR ---
PT RESTING IN BED WITH NO FURTHER C/O PAIN AT THIS TIME., REPORTS THAT PO PRN NORCO EFFECTIVE, CALL LIGHT WITH IN REACH
[2017-04-22] VITALS: BP 127/59
--- NOTE | 2017-04-22 04:00 | NUR ---
PT RESTING IN BED WITH EYES CLOSED RESPS EASY AND NONLABORED WITH NO S/S OF DISTRESS CALL LIGHT WITH IN REREACH
[2017-04-22 07:21] LABS: INTERNATIONAL NORM RATIO 2.9 (2.0-3.5)
[2017-04-22 08:00] VITALS: BP 142/62
--- NOTE | 2017-04-22 09:12 | NUR ---
NORCO 5/325 MG GIVEN FOR C/O GENERALIZED BACK PAIN,02/22.
--- NOTE | 2017-04-22 09:16 | NUR ---
DAUGHTER IN TO VISIT PT. RAISED CONCERNS REGARDING SNF PLACEMENT. PT STATES SHE WANTS TO GO HOME. ADVISED DAUGHTER THAT SHE COULD SPEAK TO RICHA IN AM ON SUNDAY.
[2017-04-22 12:00] VITALS: BP 148/60
--- NOTE | 2017-04-22 12:03 | NUR ---
UP IN CHAIR AT BEDSIDE, RESPS EASY ON 2LNC. VOICES NO NEEDS AT THIS TIME. CALL LIGHT IN REACH.
--- NOTE | 2017-04-22 14:26 | NUR ---
Patient resting quietly with no c/o discomfort. Respirations easy and regular. Vital signs stable. No overt distress.FAMILY AT BEDSIDE. CALL LIGHT IN REACH. BLAYNE LEDBETTER
[2017-04-22 16:00] VITALS: BP 124/57
--- NOTE | 2017-04-22 18:03 | NUR ---
NORCO 5/325 MG GIVEN FOR C/O GENERALIZED PAIN, 03/25.
[2017-04-22 20:00] VITALS: BP 134/55
--- NOTE | 2017-04-22 20:00 | NUR ---
PT RESTING QUIETLY IN BED. C/O 8/10 RIB PAIN. PT ADVISED SHE WAS MEDICATED AT 1800 FOR PAIN. NEXT AVAILABLE DOSE IS AT 2200. PT ACKNOWLEDGED. PT STATES THAT DULCOLAX HAS NOT YET BEEN EFFECTIVE FOR RELIEF OF CONSTIPATION. ADMITS TO FLATULENCE. BSX4 NORMO, ABD SOFT/NT/ND. WILL CONT. TO MONITOR. PT REMINDED OF NPO STATUS AFTER MIDNIGHT FOR BRONCHOSCOPY IN AM.
--- NOTE | 2017-04-22 22:27 | NUR ---
24 HR chart check completed.
[2017-04-23] VITALS (10 sets, daily range): BP systolic 124–155; BP diastolic 53–77
[2017-04-23 06:59] LABS: INTERNATIONAL NORM RATIO 1.6 (2.0-3.5)
--- NOTE | 2017-04-23 08:14 | NUR ---
PT TAKEN TO OR, NOTIFIED DAUGHTER PER PT REQUEST.
--- NOTE | 2017-04-23 09:00 | NUR ---
case management attempted to visit with patient, patient out of room for procedure
--- NOTE | 2017-04-23 09:36 | NUR ---
REPORT RECIEVED AND PT RETURNED TO FLOOR. VITALS OBTAINED, RESP EASY ON 1LNC. STABLE AND REQUESTING TO EAT. VOICES NO OTHER C/O AT THIS TIME. CALL LIGHT IN REACH.
--- NOTE | 2017-04-23 10:30 | NUR ---
PHYSICAL THERAPY Maria R seen this AM 1:1 for her physical therapy and a big turn around from my last therapy visit. Pt in 1 1/2 L o2 now, Transfer sit/stand and up on wheeled walker MIN A X 1. Gait total 90' X 1, with W/W, 1 1/2 L o2 and did not get SOB, with MOD PIPE JOINTS SUPERVISOR X 1, little verbal cueing for gait, walker safety and back up in her bedside chair, call light and no complaint. Said that she wants to go home with D/C, treatment time 16 min. AZUL RUIZ ELEMENTARY SCHOOL SCIENCE TEACHER.
--- NOTE | 2017-04-23 10:45 | NUR ---
DR Emily ASTORGA ROUNDED, NO NEW ORDERS.
--- NOTE | 2017-04-23 12:23 | NUR ---
PATIENT SEEN 1:1 30 MINUTES THIS DATE. PATIENT IN BED. IDENTIFIED BY NAME AND DATE OF . COMPLETED SUPINE TO SIT SIT EOB MOD A WITH EDUCATION USE RAIL AND PROPER HAND PLACEMENT WITH PATIENT C/O PAIN R RIB CAGE. PATIENT COMPLETED SIT TO STAND CGA BED AND AMBULATED TO BATHROOM CGA USE FWW. COMPLETED TOILETING COREY CLOTHES MANAGEMENT AND EDUCATION PURSE LIP BREATHING WITH TASK 02 SATS 92% . PATIENT COMPLETED SIT TO STAND TOILET CGA AND AMBULATED USE FWW TO RECLINER CGA AND MIN VERBAL CUES SAFETY. PATIENT COMPLETED GROOMING SEATED FLORES COMB HAIR. COMPLETED BUE STR ALL PLANES X 10 REPS SEATED WITH MOD VERBAL CUES TECHNIQUE/ FORM. CRYSTAL ORELLANA/Chloe
--- NOTE | 2017-04-23 12:46 | NUR ---
case management spoke to patient's daughter Ct, per Ct, patient wants to go home instead of nursing facility, Ct stated that patient has passport services and has [facility] for aid services and housekeeping, discussed with her VNA and she chose [facility] for nursing and pt, technical planner will send referral to [facility] for when patient is medically stable for discharge
--- NOTE | 2017-04-23 18:16 | NUR ---
NORCO 5/325 MG GIVEN FOR C/O LEFT RIB PAIN 01/22.
--- NOTE | 2017-04-23 21:06 | NUR ---
24 HR chart check completed.
--- NOTE | 2017-04-23 23:35 | NUR ---
HL TO LFA D/C'D D/T REDNESS/PAIN. HL TO RAC FLUSHED W/OUT DIFF.
[2017-04-24] VITALS: BP 129/84
[2017-04-24 06:54] LABS: BASO % 0.5 % (0.0-1.0); EOS # 0.6 10*3/uL (0.0-0.4); HEMATOCRIT 30.3 % (37.0-47.0); HEMOGLOBIN 9.9 g/dl (12.0-16.0); LYMPH # 1.1 10*3/uL (1.3-4.4); LYMPH % 18.8 % (27.0-41.0); MEAN CELL VOLUME 94.7 fl (81.0-99.0); MEAN CORPUSCULAR HGB 30.9 pg (27.0-31.0); MEAN CORPUSCULAR HGB CONC 32.7 g/dl (33.0-37.0); MEAN PLATELET VOLUME 10.7 fl (9.6-12.3); MONO # 0.7 10*3/uL (0.1-1.0); MONO % 11.7 % (3.0-9.0); NEUT # 3.3 10*3/uL (2.3-7.9); NEUT % 57.7 % (47.0-73.0); PLATELET COUNT AUTOMATED 171 10*3/uL (130-400); RED CELL DISTRI WIDTH 13.2 % (0-14.5); WHITE BLOOD COUNT 5.8 10*3/uL (4.8-10.8)
[2017-04-24 07:21] LABS: BUN 17 mg/dl (7-24); CHLORIDE 102 mmol/L (98-107); CREATININE 0.47 mg/dL (0.55-1.02); POTASSIUM 4.3 mmol/L (3.5-5.1); SODIUM 137 mmol/L (136-145)
[2017-04-24 08:00] VITALS: BP 144/63
--- NOTE | 2017-04-24 09:00 | NUR ---
case management visits with patient, discussed with her a discharge plan and patient stated she wanted to go home instead of going to the group home. she wanted [facility] and stated that she already has an aid service at home, environmental emergencies planner will make referral to [facility] for when patient is medically stable for discharge
--- NOTE | 2017-04-24 11:29 | NUR ---
PHYSICAL THERAPY Patient presented to therapy with report of feeling much better and wanting to go home. Patient's spO2 was initially 94% in sitting. Patient transferred Independently sit to stand. Patient ambulated 210' x 1 with W/W and no spO2 with Close Supervision. Patient's spO2 WAS TAKEN AND RECORDED 92% POST AMBULATING 210' X 1. Patitremaine then performed ther ex in seated postion x 20 reps each in all planes of mvmt. Patient was with this CLOTH COLORER for 25 minutes 1:1 therapy. Chemo [place] CLOTH COLORER
--- NOTE | 2017-04-24 11:30 | NUR ---
HOME O2 ASSESSMENT: PRE BP: 137/54, HR 64, RR 18, PULSE OX 94% ON ROOM AIR. AMBULATED PATIENT IN HALLWAY WITH ASSIST OF A WALKER. PULSE OX 91%-94% ON ROOM AIR THROUGHOUT AMBULATION. POST BP: 143/57, HR 60, RR 18, PULSE OX 94% ON ROOM AIR. PATIENT APPEARED TO TOLERATE AMBULATION WELL.
[2017-04-24 12:00] VITALS: BP 134/61
[2017-04-24 12:08] LABS: ACID FAST SMEAR Negative (.); ACID FAST SPEC PROCESSING Concentration (.)
--- NOTE | 2017-04-24 13:46 | NUR ---
PATIENT SEEN 1:1 THIS DATE 25 MINUTES. PATIENT IDENTIFIED BY NAME AND DATE OF . PATIENT COMPLETED BUE STR AROM ALL PLANES X 15 REPS SEATED/ STANDING SBA WITH MOD VERBAL CUES TECH/FORM. PATIENT DEMONSTRATED FAIR+ STAND TOLERANCE/ACTIVITY TOLERANCE THIS DATE. COMPLETED FUNCTIONAL AMBULATION USE FWW TO BATHROOM COMPLETING GROOMING STANDING AT SINK SBA AND TOILETING SBA WITH NO LOSS BALANCE. PATIENT REQUIRED MINIMAL VERBAL CUES SAFETY THIS DATE. PATIENT COMPLETED FUNCTIONAL AMBULATION USE FWW BATHROOM TO RECLINER SBA. PATIENT WITH NURSING UPON LEAVING ROOM THIS DATE. CRYSTAL ORELLANA/Chloe
[2017-04-24] MEDS ORDERED: NORCO 5-325 TA1 EACH PO (13:53)
[2017-04-24] MEDS ORDERED: DOXYCYCLINE100 M3 PO (13:53)
[2017-04-24] MEDS ORDERED: DULE1ARO INH ×2 (14:23→14:47)
[2017-04-24] MEDS ORDERED: NORCO 5/325 PO ×2 (14:26→14:27)
--- NOTE | 2017-04-24 15:21 | NUR ---
Unable to finalize discharge due to computer issues. Notified and after many failed attempts at correcting discharge med rec, notified Cristel of IT and she states just to print without finalizing.
--- NOTE | 2017-04-24 16:00 | NUR ---
Discharge instructions reviewed with patient/family. Patient receptive and verbalizes understanding. Follow-up care arranged. Written instructions given to patient/family. Prescriptions given. Medication retrieved from pharmacy. Patient taken off floor by wheelchair. Picked up by daughter. Heplock removed. LYNNETTE ESCOBAR
--- NOTE | 2017-04-25 08:14 | NUR ---
PHYSICAL THERAPY CO-SIGN I approve of the Phyical Therapy notes written above. DEVORA LUEVANO PT
== END 2017-04-24 16:00 | disposition home or self-care (01) | DRG 183 ==
LOC: ED 21:17 → 5E 23:08 → EDHOLD 23:08 → 5E 23:26
PROVIDERS: Emergency Medicine Emergency Medical Services; Internal Medicine; Internal Medicine Critical Care Medicine; Student in an Organized Health Care Education/Training Program; ADMIT Internal Medicine
PROC: 0BC88ZZ Extirpation of Matter from Left Upper Lobe Bronchus, Via Natural or Artificial Opening Endoscopic (ICD-10-PCS; principal; 2017-04-23)
PROC: 0BC38ZZ Extirpation of Matter from Right Main Bronchus, Via Natural or Artificial Opening Endoscopic (ICD-10-PCS; principal; 2017-04-23)
PROC: 0BCB8ZZ Extirpation of Matter from Left Lower Lobe Bronchus, Via Natural or Artificial Opening Endoscopic (ICD-10-PCS; principal; 2017-04-23)
PROC: 0BC68ZZ Extirpation of Matter from Right Lower Lobe Bronchus, Via Natural or Artificial Opening Endoscopic (ICD-10-PCS; principal; 2017-04-23)
PROC: 0BC78ZZ Extirpation of Matter from Left Main Bronchus, Via Natural or Artificial Opening Endoscopic (ICD-10-PCS; principal; 2017-04-23)
PROC: 0BC28ZZ Extirpation of Matter from Carina, Via Natural or Artificial Opening Endoscopic (ICD-10-PCS; principal; 2017-04-23)
DX: S22.41XA Multiple fractures of ribs, right side, initial encounter for closed fracture (principal); E43 Unspecified severe protein-calorie malnutrition; J96.01 Acute respiratory failure with hypoxia; J18.9 Pneumonia, unspecified organism; S27.321A Contusion of lung, unilateral, initial encounter; I50.30 Unspecified diastolic (congestive) heart failure; I50.32 Chronic diastolic (congestive) heart failure; J44.0 Chronic obstructive pulmonary disease with (acute) lower respiratory infection; J44.9 Chronic obstructive pulmonary disease, unspecified; M80.00XA Age-related osteoporosis with current pathological fracture, unspecified site, initial encounter for fracture; Z68.1 Body mass index [BMI] 19.9 or less, adult; I48.0 Paroxysmal atrial fibrillation; F32.9 Major depressive disorder, single episode, unspecified; G25.0 Essential tremor; E78.5 Hyperlipidemia, unspecified; M19.90 Unspecified osteoarthritis, unspecified site; F17.200 Nicotine dependence, unspecified, uncomplicated; F12.90 Cannabis use, unspecified, uncomplicated; F10.929 Alcohol use, unspecified with intoxication, unspecified; W18.30XA Fall on same level, unspecified, initial encounter; E87.6 Hypokalemia; J40 Bronchitis, not specified as acute or chronic; I35.0 Nonrheumatic aortic (valve) stenosis; Z71.6 Tobacco abuse counseling; Z86.73 Personal history of transient ischemic attack (TIA), and cerebral infarction without residual deficits; Y93.89 Activity, other specified; Z83.6 Family history of other diseases of the respiratory system; Z88.0 Allergy status to penicillin; Y92.89 Other specified places as the place of occurrence of the external cause; Y99.8 Other external cause status; Z79.82 Long term (current) use of aspirin

== ENCOUNTER → 2017-04-27 | Outpatient (CLI) | payer MEDICARE ==
[~2017-04-27] MED LIST changes: +CARVEDILOL6.25 MG PO; +DOXYCYCLINE100 M3 PO; +DULE1ARO INH; +NORCO 5/325 PO; +OYSTER SHELL C1 EAC1 PO; +WARFARIN SODIUM6 MG PO
[2017-04-27 14:27] LABS: INTERNATIONAL NORM RATIO 1.4 (2.0-3.5)
== END | disposition home or self-care (01) ==
LOC: LAB 13:35
PROVIDERS: Emergency Medicine
DX: Z79.01 Long term (current) use of anticoagulants (principal)

== ENCOUNTER → 2017-04-28 | Outpatient (CLI) | payer MEDICARE | END | disposition home or self-care (01) | LOC: LAB 00:38 | DX: Z53.9 Procedure and treatment not carried out, unspecified reason (principal) ==

== ENCOUNTER → 2017-10-26 | Outpatient (CLI) | payer MEDICARE ==
[2017-10-26 13:16] LABS: BASO % 0.5 % (0.0-1.0); EOS # 0.7 10*3/uL (0.0-0.4); EOS % 8.6 % (1.0-4.0); HEMATOCRIT 35.1 % (37.0-47.0); HEMOGLOBIN 11.7 g/dl (12.0-16.0); LYMPH % 25.8 % (27.0-41.0); MEAN CELL VOLUME 94.9 fl (81.0-99.0); MEAN CORPUSCULAR HGB 31.6 pg (27.0-31.0); MEAN CORPUSCULAR HGB CONC 33.3 g/dl (33.0-37.0); MEAN PLATELET VOLUME 10.9 fl (9.6-12.3); MONO # 0.7 10*3/uL (0.1-1.0); MONO % 9.3 % (3.0-9.0); NEUT # 4.4 10*3/uL (2.3-7.9); NEUT % 55.4 % (47.0-73.0); PLATELET COUNT AUTOMATED 183 10*3/uL (130-400); RED CELL DISTRI WIDTH 13.6 % (0-14.5); WHITE BLOOD COUNT 7.9 10*3/uL (4.8-10.8)
[2017-10-26 13:36] LABS: ALBUMIN 3.8 gm/dl (3.1-4.5); ALKALINE PHOSPHATASE 59 U/L (45-117); BUN 11 mg/dl (7-24); CHLORIDE 102 mmol/L (98-107); CHOLESTEROL 228 mg/dL (<200); HDL CHOLESTEROL 87 mg/dl (40-60); LDL CHOLESTEROL 126 mg/dL (9-159); POTASSIUM 3.8 mmol/L (3.5-5.1); SGOT/AST 17 IU/L (3-35); SGPT/ALT 16 U/L (12-78); SODIUM 136 mmol/L (136-145); TRIGLYCERIDES 77 mg/dl (<150); VLDL CHOLESTEROL 15 mg/dL (6-40)
== END | disposition home or self-care (01) ==
LOC: LAB 12:29
PROVIDERS: Internal Medicine
DX: D51.0 Vitamin B12 deficiency anemia due to intrinsic factor deficiency (principal); I10 Essential (primary) hypertension; E78.00 Pure hypercholesterolemia, unspecified; E55.9 Vitamin D deficiency, unspecified

== ENCOUNTER → 2018-04-05 | Outpatient (CLI) | payer MEDICARE | END | disposition home or self-care (01) | LOC: CT 04-02 03:12 | DX: D51.0 Vitamin B12 deficiency anemia due to intrinsic factor deficiency (principal); I10 Essential (primary) hypertension; E78.00 Pure hypercholesterolemia, unspecified; E55.9 Vitamin D deficiency, unspecified; I48.0 Paroxysmal atrial fibrillation; R63.4 Abnormal weight loss; F17.200 Nicotine dependence, unspecified, uncomplicated ==

== ENCOUNTER → 2018-06-13 | Outpatient (CLI) | payer MEDICARE | END | disposition home or self-care (01) | LOC: MAMMO 09:57 | DX: Z12.31 Encounter for screening mammogram for malignant neoplasm of breast (principal); R92.8 Other abnormal and inconclusive findings on diagnostic imaging of breast ==

== ENCOUNTER → 2018-10-23 | Outpatient (CLI) | payer OTHER ==
[~2018-10-23] MED LIST changes: +AMLODIPINE BESYL5 MG PO; +BACLOFEN5 MG PO; +COUMADIN3 M1 PO; +LEVAQUIN500 M2 PO; +LIPITOR20 MG PO; +REMERON30 M1 PO
== END | disposition home or self-care (01) ==
LOC: CARD 09:16
DX: I08.2 Rheumatic disorders of both aortic and tricuspid valves (principal)

== ENCOUNTER 2018-12-02 09:25 | Inpatient (IN) | payer OTHER ==
[~2018-12-02] VITALS: Ht 167.6 cm; Wt 49.9 kg
--- NOTE | ~2018-12-02 | EKG ---
[place], [place] ELECTROCARDIOGRAM REPORT NAME: VINICIUS RODNEY UNIT #: [id number] ROOM: 406 DOCTOR: YAJAIRA DRAFT REPORT BIRTHDATE: [birth year] [facility] Test Date: 2018-12-02 Test Time: 10:00:07 Pat Name: VINICIUS RODNEY Department: Room: [facility] Gender: F Aix Administrator: : 1945 Requested By: WALTER ASTORGA Order Number: [id number] Reading MD: Kristopher Rodrigues MD Measurements Intervals [place] Rate: 54 P: 48 ID: [id number] QRS: -28 QRSD: 96 T: 33 QT: 494 QTc: 469 Interpretive Statements Sinus rhythm Borderline left axis deviation Anteroseptal infarct, old Baseline wander in lead(s) V4 Electronically Signed On 12-03-2018 4:16:29 PDT by Kristopher Rodrigues MD CM:EKGRPT:ELECTROCARDIOGRAM REPORT [id number] WALTER SALMERON DRAFT REPORT WALTER ASTORGA DO
[~2018-12-02 09:25] MED LIST changes: -AMLODIPINE BESYL5 MG PO; -BACLOFEN5 MG PO; -COUMADIN3 M1 PO; -LEVAQUIN500 M2 PO; -LIPITOR20 MG PO; -REMERON30 M1 PO
[2018-12-02 09:29] VITALS: BP 177/87
[2018-12-02 10:02] LABS: BASO # 0.1 10*3/uL (0.0-0.1); BASO % 0.8 % (0.0-1.0); EOS # 0.9 10*3/uL (0.0-0.4); EOS % 11.4 % (1.0-4.0); HEMATOCRIT 37.8 % (37.0-47.0); HEMOGLOBIN 12.5 g/dl (12.0-16.0); LYMPH # 0.9 10*3/uL (1.3-4.4); MEAN CELL VOLUME 95.2 fl (81.0-99.0); MEAN CORPUSCULAR HGB 31.5 pg (27.0-31.0); MEAN CORPUSCULAR HGB CONC 33.1 g/dl (33.0-37.0); MEAN PLATELET VOLUME 11.1 fl (9.6-12.3); MONO # 0.5 10*3/uL (0.1-1.0); MONO % 6.5 % (3.0-9.0); NEUT # 5.4 10*3/uL (2.3-7.9); NEUT % 68.9 % (47.0-73.0); PLATELET COUNT AUTOMATED 177 10*3/uL (130-400); RED BLOOD COUNT 3.97 10*6/uL (4.10-5.10); RED CELL DISTRI WIDTH 13.4 % (0-14.5); WHITE BLOOD COUNT 7.8 10*3/uL (4.8-10.8)
[2018-12-02 10:12] LABS: ACT PARTIAL THROMBO TIME 35.9 SECONDS (20.0-32.1); INTERNATIONAL NORM RATIO 2.2 (2.0-3.5)
[2018-12-02 10:22] LABS: ALBUMIN 3.4 gm/dl (3.1-4.5); ALKALINE PHOSPHATASE 75 U/L (45-117); BUN 20 mg/dl (7-24); CHLORIDE 106 mmol/L (98-107); CREATININE 0.97 mg/dL (0.55-1.02); LIPASE 119 U/L (73-393); POTASSIUM 3.5 mmol/L (3.5-5.1); SGOT/AST 10 IU/L (3-35); SGPT/ALT 14 U/L (12-78); SODIUM 139 mmol/L (136-145); TOTAL PROTEIN 8.2 gm/dL (6.4-8.2)
[2018-12-02 10:23] LABS: TROPONIN I < 0.015 ng/ml (<0.045)
[2018-12-02 11:20] LABS: BILIRUBIN NEGATIVE (NEGATIVE); BLOOD NEGATIVE (NEGATIVE); CLARITY SL CLOUDY (CLEAR); COLOR YELLOW (YELLOW); GLUCOSE NEGATIVE (NEGATIVE); KETONE NEGATIVE (NEGATIVE); LEUKO ESTERASE NEGATIVE (NEGATIVE); NITRITE NEGATIVE (NEGATIVE); PH 5.5 (5.0-9.0); SPECIFIC GRAVITY 1.015 (1.005-1.030); UROBILINOGEN 0.2 E.U./dl (0.2-1.0)
[2018-12-02 11:31] LABS: BACTERIA 2+; HYALINE CAST 20-25
[2018-12-02 12:38] VITALS: BP 156/73
[2018-12-02 13:13] VITALS: BP 167/96
[2018-12-02] MEDS ORDERED: LIPITOR20 MG PO (14:57)
[2018-12-02] MEDS ORDERED: BACLOFEN5 MG PO (14:58)
[2018-12-02] MEDS ORDERED: REMERON30 M1 PO (14:59)
[2018-12-02 16:00] VITALS: BP 154/90
[2018-12-02 20:00] VITALS: BP 147/72
[2018-12-03] VITALS: BP 148/59
[2018-12-03 06:28] LABS: INTERNATIONAL NORM RATIO 3.2 (2.0-3.5)
[2018-12-03 06:30] LABS: HEMATOCRIT 34.1 % (37.0-47.0); HEMOGLOBIN 10.9 g/dl (12.0-16.0); LYMPH # 0.4 10*3/uL (1.3-4.4); LYMPH % 5.7 % (27.0-41.0); MEAN CELL VOLUME 94.7 fl (81.0-99.0); MEAN CORPUSCULAR HGB 30.3 pg (27.0-31.0); MEAN PLATELET VOLUME 11.5 fl (9.6-12.3); MONO # 0.3 10*3/uL (0.1-1.0); MONO % 4.5 % (3.0-9.0); NEUT # 5.5 10*3/uL (2.3-7.9); NEUT % 89.5 % (47.0-73.0); PLATELET COUNT AUTOMATED 148 10*3/uL (130-400); RED CELL DISTRI WIDTH 13.2 % (0-14.5); WHITE BLOOD COUNT 6.2 10*3/uL (4.8-10.8)
[2018-12-03 06:51] LABS: ALKALINE PHOSPHATASE 66 U/L (45-117); BUN 14 mg/dl (7-24); CHLORIDE 109 mmol/L (98-107); CHOLESTEROL 148 mg/dL (<200); CREATININE 0.72 mg/dL (0.55-1.02); FREE T4 0.98 ng/dl (0.76-1.46); HDL CHOLESTEROL 68 mg/dl (40-60); LDL CHOLESTEROL 64 mg/dL (9-159); PHOSPHOROUS 2.7 mg/dL (2.5-4.9); POTASSIUM 3.6 mmol/L (3.5-5.1); SGOT/AST 9 IU/L (3-35); SGPT/ALT 14 U/L (12-78); SODIUM 140 mmol/L (136-145); TOTAL PROTEIN 7.4 gm/dL (6.4-8.2); TRIGLYCERIDES 82 mg/dl (<150); VLDL CHOLESTEROL 16 mg/dL (6-40)
[2018-12-03 07:52] LABS: VITAMIN D, 25-HYDROXY 57.7 ng/mL (30-100)
[2018-12-03 08:00] VITALS: BP 158/76
[2018-12-03 12:00] VITALS: BP 156/72
[2018-12-03 16:00] VITALS: BP 150/65
[2018-12-03 20:00] VITALS: BP 142/66
[2018-12-04] VITALS: BP 157/69
[2018-12-04 07:23] LABS: INTERNATIONAL NORM RATIO 3.4 (2.0-3.5)
[2018-12-04 08:00] VITALS: BP 156/72
[2018-12-04 12:00] VITALS: BP 162/90
[2018-12-04 16:00] VITALS: BP 160/70
[2018-12-04 20:00] VITALS: BP 148/87
[2018-12-05] VITALS: BP 134/77
[2018-12-05 07:31] LABS: INTERNATIONAL NORM RATIO 2.5 (2.0-3.5)
[2018-12-05 08:00] VITALS: BP 128/72
[2018-12-05] MEDS ORDERED: COUMADIN3 M1 PO (09:09)
[2018-12-05] MEDS ORDERED: LEVAQUIN500 M2 PO (09:09)
[2018-12-05] MEDS ORDERED: AMLODIPINE BESYL5 MG PO (09:09)
[2018-12-05 12:00] VITALS: BP 126/53
== END 2018-12-05 13:48 | disposition home or self-care (01) | DRG 177 ==
LOC: ED 09:25 → 4E 12:12 → EDHOLD 12:12 → 4E 12:33
PROVIDERS: Emergency Medicine; Registered Nurse; ADMIT Internal Medicine
DX: J69.0 Pneumonitis due to inhalation of food and vomit (principal); E43 Unspecified severe protein-calorie malnutrition; J44.1 Chronic obstructive pulmonary disease with (acute) exacerbation; I50.32 Chronic diastolic (congestive) heart failure; J44.0 Chronic obstructive pulmonary disease with (acute) lower respiratory infection; Z68.1 Body mass index [BMI] 19.9 or less, adult; T17.800A Unspecified foreign body in other parts of respiratory tract causing asphyxiation, initial encounter; E86.0 Dehydration; M19.90 Unspecified osteoarthritis, unspecified site; F32.9 Major depressive disorder, single episode, unspecified; E78.5 Hyperlipidemia, unspecified; M81.0 Age-related osteoporosis without current pathological fracture; F17.210 Nicotine dependence, cigarettes, uncomplicated; I11.0 Hypertensive heart disease with heart failure; I48.0 Paroxysmal atrial fibrillation; I35.0 Nonrheumatic aortic (valve) stenosis; G25.0 Essential tremor; X58.XXXA Exposure to other specified factors, initial encounter; Y93.89 Activity, other specified; Y92.89 Other specified places as the place of occurrence of the external cause; Y99.8 Other external cause status; Z88.0 Allergy status to penicillin; Z86.73 Personal history of transient ischemic attack (TIA), and cerebral infarction without residual deficits; Z91.81 History of falling; Z79.01 Long term (current) use of anticoagulants; Z82.5 Family history of asthma and other chronic lower respiratory diseases; Z82.49 Family history of ischemic heart disease and other diseases of the circulatory system; Z81.8 Family history of other mental and behavioral disorders; Z79.899 Other long term (current) drug therapy

== ENCOUNTER → 2019-07-22 | Outpatient (CLI) | payer OTHER ==
[~2019-07-22] MED LIST changes: +AMLODIPINE BESYL5 MG PO; +BACLOFEN5 MG PO; +COUMADIN3 M1 PO; +LEVAQUIN500 M2 PO; +LIPITOR20 MG PO; +REMERON30 M1 PO
== END | disposition home or self-care (01) ==
LOC: RAD 07-11 13:18
DX: M81.0 Age-related osteoporosis without current pathological fracture (principal); Z78.0 Asymptomatic menopausal state

== ENCOUNTER 2019-12-29 12:47 | Observation (INO) | payer OTHER, MEDICAID ==
[~2019-12-29] VITALS: Ht 167.6 cm; Wt 59.0 kg
[2019-12-29 12:57] VITALS: BP 139/71
[2019-12-29 14:31] LABS: BASO # 0.1 10*3/uL (0.0-0.1); BASO % 0.7 % (0.0-1.0); EOS # 0.5 10*3/uL (0.0-0.4); EOS % 6.1 % (1.0-4.0); LYMPH # 1.5 10*3/uL (1.3-4.4); LYMPH % 20.1 % (27.0-41.0); MEAN CELL VOLUME 97.6 fl (81.0-99.0); MEAN CORPUSCULAR HGB CONC 31.8 g/dl (33.0-37.0); MEAN PLATELET VOLUME 10.7 fl (9.6-12.3); MONO # 0.5 10*3/uL (0.1-1.0); MONO % 6.9 % (3.0-9.0); NEUT # 4.9 10*3/uL (2.3-7.9); NEUT % 65.8 % (47.0-73.0); PLATELET COUNT AUTOMATED 208 10*3/uL (130-400); RED CELL DISTRI WIDTH 13.7 % (0-14.5); WHITE BLOOD COUNT 7.5 10*3/uL (4.8-10.8)
[2019-12-29 14:41] LABS: ACT PARTIAL THROMBO TIME 29.6 SECONDS (20.0-32.1); INTERNATIONAL NORM RATIO 1.2 (2.0-3.5)
[2019-12-29 14:49] LABS: ALBUMIN 3.6 gm/dl (3.1-4.5); ALKALINE PHOSPHATASE 84 U/L (45-117); BUN 13 mg/dl (7-24); CHLORIDE 104 mmol/L (98-107); CREATININE 0.65 mg/dL (0.55-1.02); LIPASE 120 U/L (73-393); POTASSIUM 3.6 mmol/L (3.5-5.1); SGOT/AST 12 IU/L (3-35); SGPT/ALT 17 U/L (12-78); SODIUM 136 mmol/L (136-145); TOTAL PROTEIN 8.4 gm/dL (6.4-8.2)
[2019-12-29 14:56] LABS: TROPONIN I < 0.015 ng/ml (<0.045)
[2019-12-29 15:00] LABS: BILIRUBIN NEGATIVE (NEGATIVE); BLOOD NEGATIVE (NEGATIVE); CLARITY SL CLOUDY (CLEAR); COLOR YELLOW (YELLOW); GLUCOSE NEGATIVE (NEGATIVE); KETONE NEGATIVE (NEGATIVE); UROBILINOGEN 0.2 E.U./dl (0.2-1.0)
[2019-12-29 15:01] LABS: BACTERIA 2+; LEUKO ESTERASE NEGATIVE (NEGATIVE); MUCOUS 2+; NITRITE NEGATIVE (NEGATIVE)
[2019-12-29 15:02] VITALS: BP 140/76
[2019-12-29 16:14] VITALS: BP 122/63
--- NOTE | 2019-12-29 16:24 | NUR ---
PT RESTING IN BED NO REQUESTS AT THIS TIME PT HAS BEEN GIVEN WARM BLANKETS BED IN LOWEST POSITION BED RAILS UP X 2 CALL LIGHT IN REACH
--- NOTE | 2019-12-29 16:48 | NUR ---
PT BACK FROM CT PT NOW TO ROOM 401
[2019-12-29 17:00] VITALS: BP 145/86
--- NOTE | 2019-12-29 17:00 | NUR ---
A 74, admitted to , under the services of MARCUS Emmanuel DO with a diagnosis of ANGINAL EQUIVALENT. Chief complaint is L NECK PAIN. Patient arrived via stretcher from ER. Monitor applied. Initial assessment completed. Vital signs taken and recorded. MARCUS EMMANUEL DO notified of admission to the unit. Orders received. See assessment for past medical history, medications and allergies. Patient and/or family oriented to unit. [address] visitation policy reviewed. Clothing/patient valuable form completed. JACINTO LUCAS
--- NOTE | 2019-12-29 19:49 | NUR ---
24 HR chart check completed.
[2019-12-29 20:00] VITALS: BP 139/72
--- NOTE | 2019-12-29 20:30 | NUR ---
SLEEPING, AWAKENS EASILY. RESPIRATIONS EASY. LUNGS DIMINISHED, CLEAR. PULSE OX 95% RA. CALL LIGHT WITHIN REACH. NO VOICED COMPLAINTS.
--- NOTE | 2019-12-29 21:56 | NUR ---
MEDICATED WITH TYLENOL AND RESTORIL PER PRN ORDER FOR COMPLAINTS OF HEADACHE RATING A 5 AND TO ASSIST WITH SLEEP. CALL LIGHT WITHIN REACH. WILL MONITOR FOR EFFECTIVENESS
--- NOTE | 2019-12-29 22:30 | NUR ---
MEDS APPEAR EFFECTIVE. SLEEPING. RESPIRATIONS EASY. CALL LIGHT WITHIN REACH
[2019-12-30] VITALS: BP 109/61
--- NOTE | 2019-12-30 | NUR ---
SLEEPING. NO DISTRESS NOTED. RESPIRATIONS EASY. VSS. CALL LIGHT WITHIN REACH
[2019-12-30] MEDS ORDERED: VITAMIN D350 MC1 PO (01:34)
--- NOTE | 2019-12-30 06:00 | NUR ---
SLEPT THROUGHOUT NIGHT WITH NO DISTRESS NOTED. RESPIRATIONS EASY. CALL LIGHT WITHIN REACH. NO VOICED COMPLAINTS THIS SHIFT
[2019-12-30 06:04] LABS: BASO # 0.1 10*3/uL (0.0-0.1); BASO % 0.9 % (0.0-1.0); EOS # 0.5 10*3/uL (0.0-0.4); EOS % 9.8 % (1.0-4.0); HEMATOCRIT 36.8 % (37.0-47.0); LYMPH # 1.5 10*3/uL (1.3-4.4); MEAN CELL VOLUME 97.4 fl (81.0-99.0); MEAN CORPUSCULAR HGB CONC 31.8 g/dl (33.0-37.0); MEAN PLATELET VOLUME 11.1 fl (9.6-12.3); MONO # 0.5 10*3/uL (0.1-1.0); MONO % 10.2 % (3.0-9.0); NEUT # 2.6 10*3/uL (2.3-7.9); NEUT % 49.9 % (47.0-73.0); PLATELET COUNT AUTOMATED 184 10*3/uL (130-400); RED BLOOD COUNT 3.78 10*6/uL (4.10-5.10); RED CELL DISTRI WIDTH 13.7 % (0-14.5); WHITE BLOOD COUNT 5.3 10*3/uL (4.8-10.8)
[2019-12-30 06:12] LABS: ACT PARTIAL THROMBO TIME 29.9 SECONDS (20.0-32.1); INTERNATIONAL NORM RATIO 1.2 (2.0-3.5)
[2019-12-30 06:14] LABS: BUN 15 mg/dl (7-24); CHLORIDE 105 mmol/L (98-107); CHOLESTEROL 158 mg/dL (<200); CREATININE 0.67 mg/dL (0.55-1.02); FREE T4 0.91 ng/dl (0.76-1.46); HDL CHOLESTEROL 59 mg/dl (40-60); LDL CHOLESTEROL 79 mg/dL (9-159); POTASSIUM 3.6 mmol/L (3.5-5.1); SODIUM 138 mmol/L (136-145); TRIGLYCERIDES 101 mg/dl (<150); VLDL CHOLESTEROL 20 mg/dL (6-40)
[2019-12-30 06:44] LABS: VITAMIN D, 25-HYDROXY 61.1 ng/mL (30-100)
[2019-12-30 08:00] VITALS: BP 136/72
--- NOTE | 2019-12-30 08:30 | NUR ---
Patient resting quietly with no c/o discomfort. Respirations easy and regular. Vital signs stable. No overt distress. DENILSON BAER R
--- NOTE | 2019-12-30 09:00 | NUR ---
Multifocal Lens Assembler in to talk to patient. Patient states lives at home with daughter. There are no steps in the home. Physician: berta lopez [facility]acy[facility] Home health services: has [facility] Patient's level of ADLs: MINIMAL ASSIST Patient has working utilities: all working DME: cane, walker Follow-up physician's appointment after d/c: will be made by hospitalist nurse director upon discharge Does patient want to access PORTAL?: no Discharge plan discussed with patient, she lives at home with daughter, she uses an elevator in the apartment complex. she states she uses a cane or walker for ambulation and her daughter helps her with adls, she has [facility] that comes one day a week. she stated she would return home with her daughter when discharged and denies any other home needs, she states her daughter will transport her home when discharged, case management will follow. ANGEL CARLIN
[2019-12-30] MEDS ORDERED: COUMADIN4 M2 PO (11:06)
[2019-12-30 11:55] VITALS: BP 104/54
--- NOTE | 2019-12-30 14:20 | NUR ---
Discharge instructions reviewed with patient/family. Patient receptive and verbalizes understanding. Follow-up care arranged. Written instructions given to patient/family. DENILSON BAER
== END 2019-12-30 14:20 | disposition home or self-care (01) ==
LOC: ED 12:47 → 4E 15:49 → EDHOLD 15:49 → 4E 16:27
PROVIDERS: Emergency Medicine; Internal Medicine; ADMIT Family Medicine
DX: I20.8 Other forms of angina pectoris (principal); M54.2 Cervicalgia; R00.1 Bradycardia, unspecified; E83.41 Hypermagnesemia; R79.82 Elevated C-reactive protein (CRP); R79.89 Other specified abnormal findings of blood chemistry; R79.1 Abnormal coagulation profile; F32.9 Major depressive disorder, single episode, unspecified; E78.5 Hyperlipidemia, unspecified; I48.0 Paroxysmal atrial fibrillation; I50.30 Unspecified diastolic (congestive) heart failure; I11.0 Hypertensive heart disease with heart failure; J44.9 Chronic obstructive pulmonary disease, unspecified; M19.90 Unspecified osteoarthritis, unspecified site; F17.200 Nicotine dependence, unspecified, uncomplicated

== ENCOUNTER → 2020-01-15 | Outpatient (CLI) | payer OTHER ==
[~2020-01-15] MED LIST changes: +COUMADIN4 M2 PO; +VITAMIN D350 MC1 PO
== END | disposition home or self-care (01) ==
LOC: MAMMO 11:00
DX: Z12.31 Encounter for screening mammogram for malignant neoplasm of breast (principal)

== ENCOUNTER 2020-04-15 09:53 | Inpatient (IN) | payer OTHER, MEDICAID ==
[~2020-04-15] VITALS: Ht 167.6 cm; Wt 42.2 kg
[~2020-04-15 09:53] MED LIST changes: +REMERON SOLTAB45 MG PO; -REMERON30 M1 PO
[2020-04-15 10:07] VITALS: BP 146/80
[2020-04-15 10:48] LABS: BASO % 0.3 % (0.0-1.0); EOS # 0.1 10*3/uL (0.0-0.4); EOS % 1.6 % (1.0-4.0); HEMATOCRIT 33.2 % (37.0-47.0); LYMPH # 1.1 10*3/uL (1.3-4.4); MEAN CELL VOLUME 95.4 fl (81.0-99.0); MEAN CORPUSCULAR HGB 30.2 pg (27.0-31.0); MEAN CORPUSCULAR HGB CONC 31.6 g/dl (33.0-37.0); MEAN PLATELET VOLUME 10.5 fl (9.6-12.3); MONO # 0.8 10*3/uL (0.1-1.0); MONO % 8.9 % (3.0-9.0); NEUT # 6.9 10*3/uL (2.3-7.9); PLATELET COUNT AUTOMATED 192 10*3/uL (130-400); RED BLOOD COUNT 3.48 10*6/uL (4.10-5.10); RED CELL DISTRI WIDTH 13.8 % (0-14.5); WHITE BLOOD COUNT 8.9 10*3/uL (4.8-10.8)
[2020-04-15 10:57] LABS: ACT PARTIAL THROMBO TIME 29.5 SECONDS (20.0-32.1)
[2020-04-15 11:02] LABS: ALBUMIN 3.7 gm/dl (3.1-4.5); ALKALINE PHOSPHATASE 75 U/L (45-117); BUN 11 mg/dl (7-24); CHLORIDE 106 mmol/L (98-107); CREATININE 0.55 mg/dL (0.55-1.02); LIPASE 73 U/L (73-393); POTASSIUM 3.6 mmol/L (3.5-5.1); SGOT/AST 11 IU/L (3-35); SGPT/ALT 17 U/L (12-78); SODIUM 136 mmol/L (136-145); TOTAL PROTEIN 7.7 gm/dL (6.4-8.2)
[2020-04-15 11:09] LABS: TROPONIN I < 0.015 ng/ml (<0.045)
[2020-04-15 12:49] LABS: BILIRUBIN Negative (Negative); BLOOD 2+ (Negative); CLARITY Clear (Clear); COLOR Yellow (Yellow); GLUCOSE Negative (Negative); KETONE 1+ (Negative); LEUKO ESTERASE Trace (Negative); NITRITE Negative (Negative); SPECIFIC GRAVITY 1.015 (1.001-1.030)
[2020-04-15 13:12] LABS: BACTERIA 3+; URIC ACID CRYSTALS 1+
--- NOTE | 2020-04-15 14:28 | NUR ---
PT WAS ACCIDENTLY ADMITTED WITHOUT AN IV SITE. I DID MENTION THIS TO THE RECEIVING NURSE JEANNIE WHO STATED SHE WOULD START ONE.
[2020-04-15 14:30] VITALS: BP 150/82
--- NOTE | 2020-04-15 14:30 | NUR ---
Time: 1429 A 74 year old FEMALE admitted to under services of KIMMIE ALICEA DO, Pt. arrived via bed from ER. Chief complaint: UNSTEADY GAIT,FX LEFT ANKLE. VINNIE SIBLEY
[2020-04-15] MEDS ORDERED: ELIQUIS5 M1 PO (14:47)
--- NOTE | 2020-04-15 15:09 | NUR ---
CALLED DR. GONZALEZ RESIDENT PHONE. PHIL FROM SURGERY ANSWERED AND SAID HE WOULD RELAY MESSAGE FOR CONSULT.
[2020-04-15] MEDS ORDERED: BUDESONIDE-FO10.2 G1 INH (15:53)
[2020-04-15] MEDS ORDERED: PROVENTIL HFA6.7 GM INH (15:57)
[2020-04-15 16:00] VITALS: BP 137/76
[2020-04-15] MEDS ORDERED: ECOTRIN325 M1 PO (16:01)
--- NOTE | 2020-04-15 16:10 | NUR ---
IV started left antecubital with #20 angiocath after 1 attempts. The IV site was prepped with Chloraprep. Heparin lock attached. Sterile dressing applied. Patient tolerated precedure well. Procedure performed according to [facility] policy & procedure. VINNIE SIBLEY
--- NOTE | 2020-04-15 17:41 | NUR ---
PODIATRY IN ROOM TO SEE PT.
--- NOTE | 2020-04-15 18:17 | NUR ---
PT OFF THE FLOOR FOR X-RAY WITH FUEL STORAGE TECHNICIAN.
[2020-04-15 20:00] VITALS: BP 128/646
--- NOTE | 2020-04-15 20:45 | NUR ---
NORCO GIVEN PER LLE PAIN. WILL DOC EFFECTIVENESS.
--- NOTE | 2020-04-15 21:45 | NUR ---
[place] EFFECTIVE
[2020-04-16] VITALS: BP 130/67
--- NOTE | 2020-04-16 04:00 | NUR ---
PATIENT SLEEPS; EASY AND REGULAR RESPS ON ROOM AIR. CALL LIGHT IN REACH
[2020-04-16 06:17] LABS: BASO % 0.5 % (0.0-1.0); EOS # 0.3 10*3/uL (0.0-0.4); EOS % 4.3 % (1.0-4.0); LYMPH # 1.4 10*3/uL (1.3-4.4); MEAN CELL VOLUME 95.7 fl (81.0-99.0); MEAN CORPUSCULAR HGB 30.9 pg (27.0-31.0); MEAN CORPUSCULAR HGB CONC 32.3 g/dl (33.0-37.0); MEAN PLATELET VOLUME 10.6 fl (9.6-12.3); MONO # 0.6 10*3/uL (0.1-1.0); MONO % 10.5 % (3.0-9.0); NEUT # 3.7 10*3/uL (2.3-7.9); NEUT % 61.5 % (47.0-73.0); PLATELET COUNT AUTOMATED 169 10*3/uL (130-400); RED BLOOD COUNT 3.24 10*6/uL (4.10-5.10); RED CELL DISTRI WIDTH 13.6 % (0-14.5)
[2020-04-16 06:36] LABS: ACT PARTIAL THROMBO TIME 31.4 SECONDS (20.0-32.1)
[2020-04-16 06:41] LABS: ALKALINE PHOSPHATASE 65 U/L (45-117); BUN 11 mg/dl (7-24); CHLORIDE 108 mmol/L (98-107); CHOLESTEROL 162 mg/dL (<200); CREATININE 0.52 mg/dL (0.55-1.02); FREE T4 1.01 ng/dl (0.76-1.46); HDL CHOLESTEROL 88 mg/dl (40-60); LDL CHOLESTEROL 59 mg/dL (9-159); POTASSIUM 3.6 mmol/L (3.5-5.1); SGOT/AST 11 IU/L (3-35); SGPT/ALT 13 U/L (12-78); SODIUM 137 mmol/L (136-145); TRIGLYCERIDES 76 mg/dl (<150); VLDL CHOLESTEROL 15 mg/dL (6-40)
--- NOTE | 2020-04-16 07:00 | NUR ---
ARRIVED ONSHIFT, REPORT RECEIVED FROM OFFGOING NURSE, ASSUMED CARE OF PATIENT.
--- NOTE | 2020-04-16 07:25 | NUR ---
INTRODUCED SELF TO PATIENT, BED IN LOW POSITION, WHEEL LOCKS ENGAGED, SIDE RAILS UP X 2 FOR TURNING AND REPOSITIONING, CALL LIGHT WITHIN REACH, NO NEEDS VOICED AT THIS TIME, WHITE BOARD UPDATED.
[2020-04-16 07:49] LABS: VITAMIN D, 25-HYDROXY 60.8 ng/mL (30-100)
--- NOTE | 2020-04-16 07:54 | NUR ---
PHYSICAL THERAPY Screen and eval orders received will follow thank you Reyna Rasmussen PT
[2020-04-16 08:00] VITALS: BP 160/84
--- NOTE | 2020-04-16 08:49 | NUR ---
PHYSICAL THERAPY Alok received chart reviewed pt admitted with fall L ankle fx being followed by Podiatry. Per note 04/15 Stress xray/CT scan Neg for associated fracture and treating conservatively with splint/cast/NWB status of LLE. Spoke with nsg to defer therapy at this time as pt scheduled for futher tests arterial/venous US ordered as well as ECHO. Will follow as medically appropriate. Reyna Rasmussen PT
--- NOTE | 2020-04-16 08:52 | NUR ---
Shift chart check completed.
--- NOTE | 2020-04-16 09:00 | NUR ---
Virtualization Consultant in to talk to patient. Patient states lives at home with daughter and daughter's boyfriend. There are no steps in the home. Physician: chandler rosales [facility]acy: [facility] Home health services: none Patient's level of ADLs: MINIMAL ASSIST Patient has working utilities: all working DME: cane, walker Follow-up physician's appointment after d/c: will be made by hospitalist nurse director upon discharge Does patient want to access PORTAL?: no Discharge plan discussed with patient, she states she lives at home with her daughter and her daughter's boyfriend. she was independent in adls and uses a cane or walker for ambulation, discussed with her a short term skilled where she could received 5 days of rehab and 24 hour care prior to returning home. she declined stated she would return home. with her daughter. also discussed with her VNA and educated her on the services they provide. she also declined this. she stated her daughter works as an aid for [employer] and is the patient's aid at home. case management will follow for any other home needs. ANGEL CARLIN
--- NOTE | 2020-04-16 09:54 | NUR ---
PATIENT RETURNED FROM ULTRASOUND, C/O LEFT ANLE PAIN DESCRIBES A DULL ACHE, RATES 7/10 MEDICATED WITH NORCO ORDERED PRN.
--- NOTE | 2020-04-16 10:54 | NUR ---
PATIENT REPORTS GOOD RELEIF FROM NORCO GIVEN X 1 HOUR AGO.
--- NOTE | 2020-04-16 11:50 | NUR ---
PHYSICAL THERAPY Physical Therapy evaluation completed on with full evaluation to follow. Recommend physical therapy per plan of care and SNF upon discharge if to go home would recomend 24 hr care HH services, pt/dgtr interested in ambulance transport will also need FWW has access to hospt bed,w/c and bsc see talya Thank you for this referral. Reyna Rasmussen PT
[2020-04-16 12:00] VITALS: BP 147/72
--- NOTE | 2020-04-16 12:50 | NUR ---
case management spoke to physical therapist. she recommended patient be discharged to a short term skilled for 5 days for rehab and 24 hour care. case management again spoke to patient and be discharged to a SNF. she stated she spoke to her daughter and she is agreeable to a SNF. she stated she was at [facility] many years ago and would like to go to [facility]. discussed with her that her insurance is out of network with [facility] and if she has no out of network benefits she will have to choose another facility. [facility] is unable to go to [facility], planner chief will send referrals. case management will follow
--- NOTE | 2020-04-16 13:20 | NUR ---
Occupational Therapy evaluation completed on 4E with full evaluation to follow. Recommend occupational therapy per plan of care and SNF upon discharge. Thank you for this referral. Brianna Joy OTR/L
--- NOTE | 2020-04-16 13:35 | NUR ---
OT NOTE Pt was seen this P.M. 1:1 for 15 minute OT session. Upon arrival pt was sitting upright in the recliner. Pt identified by name and and had complaints of 8/10 L heel pain stating "it feels like fire." Pt was able to verbalize and self recall NWB status to LLE with 100% accuracy. Sit to stand completed from chair level with Philippe while requiring verbal prompts to maintain NWB to LLE. Standing pivot completed from the chair to the bedside commode with Philippe. Clothing management completed with modA and toilet hygiene completed with supervision while seated. Pt was educated on technique throughout hygiene to maintain NWB status. Sit to stand then completed from the bedside commode with Philippe. Clothing management completed with modA while using w/w for UE support. Standing pivot then completed from the bedside commode to the EOB with Philippe and use of w/w. Pt transferred sit to supine with SBA. There she was left with call light in hand, LLE elevated, and bed alarm activated for safety. Throughout entire session pt required constant verbal prompts for slowing down due to being impulsive increasing risk of falls. Continue with POC as able. ALEXIS Hairston
--- NOTE | 2020-04-16 13:45 | NUR ---
PHYSICAL THERAPY Pt seen at the bedside after lunch c/o L heel "burning" want to get back into bed and use needing to use BSC Partial SPT recliner to BSC without AD Min assist x 1 for upper body and tech and second person light min ast LLE to maitain NWB of LLE to complete transfer STS from BS with Min assist 1-2 w FWW verbal/tactile cues t/o for safety/hand placement with tranfer. Amb w FWW BSC to bed 1 x 3 ft w FWW Min x 2 able to maintain NWB of LLE with only verbal/tactile cues Tolerated activity well improved transfers from this AM however pt continues to be impulsive with activity cues to slow down for safety/balance/technique and to maintain NWB status of LLE. End of session pt in bed w call camara bed alarm engaged for safety LLE elvated up on pillow spoke with nsg reg pt c/o heel pain to assess ? if splint is causing discomfort at heel, per nsg she will assess continue to recomend SNF Reyna Rasmussen PT
--- NOTE | 2020-04-16 14:13 | NUR ---
KATIE C/O LEFT HEEL AND ANKLE PAIN RATES PAIN 6/10 MEDICATED WITH NORCO ORDERED PRN.
--- NOTE | 2020-04-16 14:26 | NUR ---
Patient requested a referral to [facility]; Contacted facility and faxed full referral. waiting on review/acceptance and covid test results.
--- NOTE | 2020-04-16 15:10 | NUR ---
PATIENT REPORTING GOOD RELEIF FROM NORCO GIVEN X 1 HOUR AGO.
[2020-04-16 16:00] VITALS: BP 116/61
--- NOTE | 2020-04-16 17:44 | NUR ---
PATIENT HAVING CAST PLACED SHE WAS HAVING PAIN 8/10 MEDICATED WITH NORCO ORDERED PRN, KARISSA MCCABE UPDATED.
--- NOTE | 2020-04-16 18:39 | NUR ---
PATIENT REPORTING MODERATE RELIEF FROM NORCO GIVEN X 1 HOUR AGO
--- NOTE | 2020-04-16 19:00 | NUR ---
PT ACCIDENTLY PULLED IV OUT. Hep Lock discontinued. Site asymptomatic. Pressure applied. Sterile dressing applied. IV started left forearm with #22 protective cath after 1 attempts. Site prepped with Chloroprep. Sterile dressing applied. Patient tolerated procedure well. IV infusing at 100 cc/hr. BRYANT RICHARDSON
--- NOTE | 2020-04-16 19:30 | NUR ---
PT RESTING IN BED. VOICES NO CONCERNS AT THIS TIME. RESPS EASY AND NON LABORED. NO S/S OF DISTRESS NOTED. VSS. WHITE BOARD UPDATED. POC DISCUSSED W PT. A/O X3. DENIES PAIN AT THIS TIME. BULKY CAST NOTED TO LEFT EXTREMITY.PT ABLE TO WIGGLE TOES AND THEY ARE WARM TO THE TOUCH. IVF INFUSING W/O INCIDENT. WILL CONTINUE TO MONITOR. CALL LIGHT WITHIN REACH.
[2020-04-16 20:00] VITALS: BP 131/63
--- NOTE | 2020-04-16 21:52 | NUR ---
PT C/O 12/23 ACHING LEFT LEG PAIN. MEDICATED PER ORDER. WILL MONITOR FOR RELIEF. VOICES NO OTHER CONCERNS AT THIS TIME. RESPS EASY AND NON LABORED. WATCHING TV IN BED. CALL LIGHT WITHIN REACH.
--- NOTE | 2020-04-16 22:50 | NUR ---
PT STATES MEDICATION EFFECTIVE.
[2020-04-17] VITALS: BP 135/70
--- NOTE | 2020-04-17 02:58 | NUR ---
Patient sleeping. Respirations relaxed and easy. Siderails up . [place] on. call light within reach. HISSOM,BRYANT
--- NOTE | 2020-04-17 03:35 | NUR ---
24 HR chart check completed.
[2020-04-17 08:00] VITALS: BP 142/71
--- NOTE | 2020-04-17 11:09 | NUR ---
PATIENT REPORTED RELIEF OF LEG PAIN WITH PRESCRIBED PRN NORCO. SHE IS RESTING COMFORTABLY AT THIS TIME
[2020-04-17 12:00] VITALS: BP 156/75
[2020-04-17 16:00] VITALS: BP 128/68
--- NOTE | 2020-04-17 19:30 | NUR ---
PT RESTING IN BED. VOICES NO CONCERNS AT THIS TIME. RESPS EASY AND NONLABORED. NO S/S OF DISTRESS NOTED. VSS. WHITE BOARD UPDATED. POC DISCUSSED W PT.A/O X3. BULKY CAST NOTED TO L LEG. PT TOES WARM TO THE TOUCH AND IS ABLE TO MOVE THEM. WILL CONTINUE TO MONITOR. CALL LIGHT WITHIN REACH.
[2020-04-17 20:00] VITALS: BP 147/65
--- NOTE | 2020-04-17 20:28 | NUR ---
PT C/O 5/10 ACHING L LEG PAIN. MEDICATED PER ORDER. WILL MONITOR FOR RELIEF. RESTING IN BED. WATCHING TV. RESPS EASY AND NON LABORED. CALL LIGHT WITHIN REACH.
--- NOTE | 2020-04-17 21:28 | NUR ---
NORCO EFFECTIVE PER PT
[2020-04-18] VITALS: BP 127/71
--- NOTE | 2020-04-18 01:18 | NUR ---
PT C/O 10/23 ACING L LEG PAIN. MEDICATED PER ORDER. WILL MONITOR FOR RELIEF. VOICES NOOTHER CONCERNS. RESTING IN BED. CALL LIGHT WITHIN REACH.
--- NOTE | 2020-04-18 02:18 | NUR ---
MEDICATION APPEARS EFFECTIVE. PT SLEEPING. RESPS EASY AND NON LABORED. CALL LIGHT WITHIN REACH.
--- NOTE | 2020-04-18 04:11 | NUR ---
Patient sleeping. Respirations relaxed and easy. Siderails up . [place] on. CALL LIGHT WITHIN REACH. HISSOM,BRYANT
--- NOTE | 2020-04-18 04:30 | NUR ---
24 HR chart check completed.
[2020-04-18 08:00] VITALS: BP 130/70
[2020-04-18 12:00] VITALS: BP 126/65
--- NOTE | 2020-04-18 13:12 | NUR ---
PATIENT RESTING QUIETLY WITH NO C/O - TOES REMAIN WANR TO TOUCH AND NO SWELLING TO TOES AT THIS TIME. PT DENIES ANY NEED
--- NOTE | 2020-04-18 15:04 | NUR ---
PATIENT SLEEPING - RESP EASY & NONLABORED
--- NOTE | 2020-04-18 15:38 | NUR ---
MEDICATED WITH NORCO FOR COMPLAINTS OF PAIN IN LEFT ANKLE. RATES PAIN A 7 ON A PAIN SCALE OF 1-10
[2020-04-18 16:00] VITALS: BP 127/66
--- NOTE | 2020-04-18 16:15 | NUR ---
PAIN IN ANKLE MINIMAL /10 AFTER MEDICATED WITH NORCO - BACK STIFF NOW
[2020-04-18 20:00] VITALS: BP 120/58
--- NOTE | 2020-04-18 20:00 | NUR ---
PT SEEN AND ASSESSED. PT DENIES ANY NEEDS AT THIS TIME. PT STATES SHE IS COMFORTABLE AND HAS NO NEED FOR PAIN MEDICATION AT THIS TIME. WILL REASSESS
[2020-04-19] VITALS: BP 127/59
--- NOTE | 2020-04-19 02:09 | NUR ---
24 HR chart check completed.
--- NOTE | 2020-04-19 05:33 | NUR ---
PPT REQUEST PRN PAIN MEDICATION FOR 7/10 PAIN TO LL LEG. PRN PAIN MEDCIATION GIVEN. WILL REASSESS.
[2020-04-19 08:00] VITALS: BP 155/87
--- NOTE | 2020-04-19 08:35 | NUR ---
PHYSICAL THERAPY Patient seen this am 1;1 for therapy visit and was supine in bed upon therapist arrival. Patient identified by name / and presented with L LE ankle cast. Patient is NWB on L LE and was joined by OT preschool teacher's assistant for observation this session, transfering supine to sit EOB with CGA x 1. Patient completed sit to stand transfer, use of wh walker standing support, CGA, demonstrating Fair+ safety awareness. Patient ambulated 15'x 1 around bed to bedside chair, 3 pt gait pattern, "bunny hop" step sequecne, needing v/c to keep her head / eyes up to improve upright standing posture. Patient ambulated addtional 20'x 2 to bathroom and back, demonstating bouts of increased fatigue, requiring brief standing rest break < 20 seconds. Patient returned to bedside chair and remained semi reclined with call light, tray table, telephone, body alarm for safety. Patient would benefit from SNF to improve standing activity tolerance and improved gait pattern with wh walker. Will continue per POC as tolerated, total treatment time 18 minutes. Fer Hogue, MANAGER EXPORT
--- NOTE | 2020-04-19 08:55 | NUR ---
OT NOTE Pt was seen this A.M. 1:1 for 25 minute OT session. Upon arrival pt was supine in bed. Pt identified by name and and had no complaints at this time. Prior to start of activity pt was able to self recall and verbalize NWB status to LLE with 100% recall. Pt transferred supine to sit EOB with SBA. Sit to stand completed from bed level with CGA and use of w/w for UE support. Challenged pt's static standing tolerance needed for increased I in self care tasks and functional transfers, pt was able to tolerate aprox 2 minutes before sitting due to fatigue, throughout pt maintain NWB to LLE with 100% carry over. After a seated rest break pt completed functional mobility into the bathroom with CGA and use of w/w with verbal prompts to slow down due to being impulsive increasing risk of falls. Pt presented with fair carry over. Pt transferred on/off standard commode with CGA and use of grab bar for UE support, again requiring verbal prompts for slowing down to enhance safety. Clothing management completed with Philippe due to pt having LOB while attempting without UE support and maintaining NWB. Functional mobility completed back to the recliner with CGA and use of w/w. While seated pt was educated on Lower body dressing while donning LLE first due to cast and then Right and pt was able to complete with Philippe. Pt was left sitting upright in the recliner with call light in hand, tray table in place, and body alarm activated for safety. Continue with rec D/C plan to SNF. ALEXIS Hairston
--- NOTE | 2020-04-19 09:48 | NUR ---
Updated clinicals and therapy notes faxed to Carrie at [facility] for precert. Waiting on auth. Covid negative.
--- NOTE | 2020-04-19 11:35 | NUR ---
PHYSICAL THERAPY Patient seen this am for second therapy visit and was still sititng up in bedside chair upon therapist arrival. Patient identified by name / and joined by OT clinical trials assistant for observation this session. Patient reports no c/o's pain and is NWB on L LE. while transfering sit to stand, CGA x 1 from low chair surface. Patient ambulates with use of wh walker, CGA, 20'x 1 to bathroom, demonstrating "bunny hop" weston. Patient ambulated additional 30'x 1, MIN A, secondary to increased fatigue / unsteady gait pattern. Patient returned to supine in bed and remained with bed alarm, call light as her Doctor arrived for visit. Will continue per POC as tolerated, total treatment time 17 minutes. Fer Hogue, CORN CUTTER OPERATOR
[2020-04-19 12:00] VITALS: BP 147/67
--- NOTE | 2020-04-19 12:00 | NUR ---
OT NOTE Pt was seen this P.M. 1:1 for second OT session consisting of 15 minutes. Upon arrival pt was sitting reclined in the recliner. Pt identified by name and and had no complaints at this time. Pt was able to recall NWB to LLE with 100% accuracy. Sit to stand from chair level with CGA and use of w/w for UE support. Functional mobility completed from the recliner to the bathroom with CGA and use of w/w. Pt was very impulsive, poor safety awareness, and presented with multiple bouts of unsteady stance that required Philippe to correct. Pt transferred on/off standard commode with CGA and use of w/w. Clothing management completed with Philippe. Functional mobility completed back to the EOB with CGA and use of w/w. Throughout entire session pt was 100% compliant with NWB to LLE. Pt transferred back into bed sit to supine with SBA. There she was left with call light in hand, tray table in place, and bed alarm activated for safety. Continue with rec D/C plan to SNF. REYNA Hairston/Chloe
[2020-04-19 16:00] VITALS: BP 124/66
[2020-04-19 20:00] VITALS: BP 122/63
--- NOTE | 2020-04-19 20:19 | NUR ---
PATIENT RESTING, VERBALIZES NO COMPLAINTS. RESPS EASY, NONLABORED ON ROOM AIR. BED IN LOW, LOCKED POS,CALL LIGHT IN REACH
[2020-04-20] VITALS: BP 120/63
[2020-04-20 08:00] VITALS: BP 134/66
--- NOTE | 2020-04-20 08:40 | NUR ---
OT NOTE Pt was seen this A.M. 1:1 for 15 minute OT session. Upon arrival pt was supine in bed. Pt identified by name and and had no complaints at this time. Prior to start of activity pt was able to self recall and verbalize NWB to LLE with 100% accuracy. Pt transferred supine to sit EOB with SBA. While sitting EOB pt donned R slipper with SBA. Sit to stand completed from bed level with CGA and use of w/w for UE support. Functional mobility was then completed to the bathroom with CGA and use of w/w with 100% carry over of NWB to LLE. Throughout all mobility pt required multiple verbal prompts for slowing down due to being impulsive increasing risk of falls. There she transferred on/off standard commode with CGA and use of grab bar. Clothing management completed with Philippe. Pt then stood sink side while washing her hands with Philippe due to being unsteady and presenting with three LOB while standing without UE support requiring Philippe to correct. Functional mobility was then completed back to the recliner with CGA and use of w/w for UE support. Pt was left sitting upright in the recliner with call light in hand, tray table in place, and body alarm activated for safety. Continue with rec D/C plan to SNF. REYNA Hairston/Chloe
--- NOTE | 2020-04-20 09:00 | NUR ---
Patient resting quietly with no c/o discomfort. Respirations easy and regular. Vital signs stable. No overt distress. DENILSON BAER R
--- NOTE | 2020-04-20 09:46 | NUR ---
PHYSICAL THERAPY TREATMENT TIME: IN 08:25 AM OUT 08:40 AM 15 MINUTES TOTAL PRESENTATION: Patient presented to therapy in supine with head of bed elevated Bed alarm on No spO2 No IVs Identified by name and on wristband Patient gives informed consent for treatment COMPLAINTS: 0/10 PAIN IN L LE /ANKLE WB STATUS: NWB on L LE ASSISTIVE DEVICE: Wh Walker TRANSFERS: Supine to sitting on EOB: SBA Sitting on EOB: SBA STS from EOB: SBA-CGA STS from COMMODE: SBA TREATMENT: GAIT with Wh Walker and CGA 15' X 1 2nd GAIT of 20' x 1 with Wh Walker with CGA RESPONSE TO TREATMENT: No increased pain in the L LE. Patient was able to maintain the NWB on the L LE during gait No LOB No SOB CONCLUSION: Patient left in bedside chair with call light within reach and chair alarm on LEs in low position Tray table near patient EVELYN WASHINGTON GAS DISTRIBUTION AND EMERGENCY CLERK
--- NOTE | 2020-04-20 11:08 | NUR ---
Patient has received auth for [facility]. Patient can go today if medically stable for discharge.
[2020-04-20] MEDS ORDERED: HYDROCODONE-AC1 EAC1 PO (12:11)
--- NOTE | 2020-04-20 12:15 | NUR ---
OT NOTE Pt was seen this P.M. 1:1 for second OT session consisting of 15 minutes. Upon arrival pt was supine in bed. Pt identified by name and and had no complaints at this time. Pt was able to recall her NWB to LLE status. Pt transferred supine to sit EOB with SBA. Sit to stand completed from bed level with CGA and use of w/w. Functional mobility completed around the room and back to the EOB with CGA and use of w/w while maintaining 100% carry over of NWB to LLE. After a seated rest break challenged pt's dynamic standing balance while weight shifting, crossing midline, and reaching over all planes. Pt was able to maintain F- standing balance throughout. Pt transferred back into bed sit to supine with SBA. There she was left with call light in hand, tray table in place, and bed alarm activated for safety. Continue with rec D/C plan to SNF. REYNA Hairston/Chloe
--- NOTE | 2020-04-20 12:44 | NUR ---
Patient is discharged to [facility] via [place] at 4 PM. NH, nursing/snack steward and patients daughter Ct all notified. DC summary faxed.
--- NOTE | 2020-04-20 14:41 | NUR ---
PHYSICAL THERAPY TREATMENT TIME: IN 12:15 PM - 12:35 PM 20 MINUTES PRESENTATION: Patient was supine in bed Head of bed elevated Bed alarm on Patient identified by name and on wristband Informed consent given by patient COMPLAINTS: No complaints WB STATUS: NWB on the L LE ASSISTIVE DEVICE: Wh Walker TRANSFERS: Supine <> sitting on EOB: SBA STS from EOB: SBA- CGA STS <> low chair: CGA TREATMENT: GAIT with Wh Walker and CGA for 50' X 2 Patient was able to maintain NWB on L LE the entire 50' x 2 RESPONSE TO TREATMENT: Patient had no LOB and no SOB with gait Patient maintained the NWB on the L LE the entire distance of the Gait of 50' x 2. Patient had no increased pain in the L LE post gait CONCLUSION: Patient was left in supine with head of bed elevated Bed alarm was activated Call light within reach Tray table within reach EVELYN WASHINGTON ANALYSIS CONSULTANT
--- NOTE | 2020-04-20 15:42 | NUR ---
REPORT CALLED TO NHAN AT [facility].
--- NOTE | 2020-04-20 16:01 | NUR ---
Discharge instructions reviewed with patient/family. Patient receptive and verbalizes understanding. Follow-up care arranged. Written instructions given to patient/family. DENILSON BAER
--- NOTE | 2020-04-21 07:43 | NUR ---
PHYSICAL THERAPY CO-SIGN I approve of the Physical Therapy notes written above. Reyna Rasmussen PT
--- NOTE | 2020-04-21 07:51 | NUR ---
OCCUPATIONAL THERAPY CO-SIGN I approve of the Occupational Therapy notes written above. PHIL VAN OTR/Chloe
== END 2020-04-20 16:24 | disposition other institution (70) | DRG 562 ==
LOC: ED 09:53 → EDHOLD 13:23 → 4E 13:23
PROVIDERS: Emergency Medicine; Family Medicine; ADMIT Internal Medicine; ATTEND Internal Medicine
DX: S82.832A Other fracture of upper and lower end of left fibula, initial encounter for closed fracture (principal); E43 Unspecified severe protein-calorie malnutrition; I50.32 Chronic diastolic (congestive) heart failure; G25.0 Essential tremor; I35.0 Nonrheumatic aortic (valve) stenosis; J44.9 Chronic obstructive pulmonary disease, unspecified; I48.0 Paroxysmal atrial fibrillation; M81.0 Age-related osteoporosis without current pathological fracture; M19.90 Unspecified osteoarthritis, unspecified site; F32.9 Major depressive disorder, single episode, unspecified; I11.0 Hypertensive heart disease with heart failure; Z20.828 Contact with and (suspected) exposure to other viral communicable diseases; F12.90 Cannabis use, unspecified, uncomplicated; E78.5 Hyperlipidemia, unspecified; R29.6 Repeated falls; F17.210 Nicotine dependence, cigarettes, uncomplicated; D64.9 Anemia, unspecified; I70.203 Unspecified atherosclerosis of native arteries of extremities, bilateral legs; Z88.0 Allergy status to penicillin; Z82.49 Family history of ischemic heart disease and other diseases of the circulatory system; Z83.6 Family history of other diseases of the respiratory system; Z86.73 Personal history of transient ischemic attack (TIA), and cerebral infarction without residual deficits; W18.39XA Other fall on same level, initial encounter; Y93.89 Activity, other specified; Y92.89 Other specified places as the place of occurrence of the external cause; Y99.8 Other external cause status

== ENCOUNTER 2020-07-01 06:25 | Inpatient (IN) | payer OTHER, MEDICAID ==
[~2020-07-01] VITALS: Ht 168 cm; Wt 46.0 kg
[2020-07-01] VITALS (19 sets, daily range): BP systolic 101–151; BP diastolic 55–92
[~2020-07-01 06:25] MED LIST changes: +BUDESONIDE-FO10.2 G1 INH; +ECOTRIN325 M1 PO; +ELIQUIS5 M1 PO; +HYDROCODONE-AC1 EAC1 PO; +PROVENTIL HFA6.7 GM INH
[2020-07-01 06:52] LABS: HEMATOCRIT 22.1 % (37.0-47.0); MEAN CELL VOLUME 90.9 fl (81.0-99.0); MEAN CORPUSCULAR HGB 26.7 pg (27.0-31.0); MEAN CORPUSCULAR HGB CONC 29.4 g/dl (33.0-37.0); MEAN PLATELET VOLUME 10.9 fl (9.6-12.3); PLATELET COUNT AUTOMATED 177 10*3/uL (130-400); RED BLOOD COUNT 2.43 10*6/uL (4.10-5.10); RED CELL DISTRI WIDTH 14.4 % (0-14.5); WHITE BLOOD COUNT 8.6 10*3/uL (4.8-10.8)
[2020-07-01 07:08] LABS: ALBUMIN 3.1 gm/dl (3.1-4.5); ALKALINE PHOSPHATASE 94 U/L (45-117); BUN 12 mg/dl (7-24); CHLORIDE 110 mmol/L (98-107); CREATININE 0.81 mg/dL (0.55-1.02); POTASSIUM 3.1 mmol/L (3.5-5.1); SGOT/AST 10 IU/L (3-35); SGPT/ALT 9 U/L (12-78); SODIUM 140 mmol/L (136-145); TOTAL PROTEIN 7.4 gm/dL (6.4-8.2)
[2020-07-01 07:11] LABS: TROPONIN I < 0.015 ng/ml (<0.045)
[2020-07-01 07:30] LABS: PLATELET SUFFICIENCY NORMAL (NORMAL); TOTAL CELLS COUNTED 100 #CELLS
--- NOTE | 2020-07-01 08:45 | NUR ---
SLEEPING, RESPS EASY. EASILY AROUSED. NO COMPLAINTS.
--- NOTE | 2020-07-01 10:28 | NUR ---
PT USED BEDSIDE COMMODE, TOLERATED WELL. BACK TO BED ON HER OWN POWER, NO COMPLAINTS.
--- NOTE | 2020-07-01 11:57 | NUR ---
DR BAUGH AT BEDSIDE
--- NOTE | 2020-07-01 13:05 | NUR ---
SITTING UP IN BED WATCHING TV, NO COMPLAINTS.
[2020-07-01 15:48] LABS: BASO % 0.5 % (0.0-1.0); EOS % 0.3 % (1.0-4.0); HEMATOCRIT 23.5 % (37.0-47.0); LYMPH # 0.9 10*3/uL (1.3-4.4); LYMPH % 14.3 % (27.0-41.0); MEAN CORPUSCULAR HGB 26.6 pg (27.0-31.0); MEAN CORPUSCULAR HGB CONC 31.1 g/dl (33.0-37.0); MEAN PLATELET VOLUME 11.2 fl (9.6-12.3); MONO # 0.4 10*3/uL (0.1-1.0); MONO % 7.1 % (3.0-9.0); NEUT # 4.8 10*3/uL (2.3-7.9); NEUT % 77.5 % (47.0-73.0); PLATELET COUNT AUTOMATED 168 10*3/uL (130-400); RED BLOOD COUNT 2.74 10*6/uL (4.10-5.10); RED CELL DISTRI WIDTH 14.6 % (0-14.5); WHITE BLOOD COUNT 6.2 10*3/uL (4.8-10.8)
[2020-07-01 15:55] LABS: MEAN CELL VOLUME 85.8 fl (81.0-99.0)
--- NOTE | 2020-07-01 17:39 | NUR ---
PT HAS HAD 32 OZ OF COLO PREP. HAS NOT YET HAD RESULTS.
--- NOTE | 2020-07-01 17:50 | NUR ---
AFTER USING BEDSIDE COMMODE PT VERY ANXIOUS, SOB, SWEATING. PT PLACED ON O2 3L/NC, INSTRUCTED TO TRI POD/PURSE LIPPED BREATHING.
--- NOTE | 2020-07-01 18:14 | NUR ---
POX 91% WITH 4 L/NC. PT APPEARS MORE RELAXED ON BED.
--- NOTE | 2020-07-01 18:45 | NUR ---
PT HAD COUGHING SPELL AND HAD LARGE LIGHT YELLOW LIQUID EMESIS.
--- NOTE | 2020-07-01 21:58 | NUR ---
PATIENT UP TO BEDSIDE COMMODE WITHOUT DIFFICULTY.
--- NOTE | 2020-07-01 22:17 | NUR ---
PATIENT FINISHED PREP AT THIS TIME. PATIENT BACK TO BED FROM BEDSIDE COMMODE WITHOUT DIFFICULTY. RESPIRATIONS EASY, NON-LABORED. NO DISTRESS NOTED. RN WILL CONTINUE TO MONITOR.
[2020-07-02 05:46] LABS: ALBUMIN 3.1 gm/dl (3.1-4.5); ALKALINE PHOSPHATASE 90 U/L (45-117); BUN 10 mg/dl (7-24); CHLORIDE 111 mmol/L (98-107); CREATININE 0.57 mg/dL (0.55-1.02); POTASSIUM 3.3 mmol/L (3.5-5.1); SGOT/AST 12 IU/L (3-35); SGPT/ALT 13 U/L (12-78); SODIUM 141 mmol/L (136-145); TOTAL PROTEIN 7.3 gm/dL (6.4-8.2)
[2020-07-02 06:15] LABS: BASO % 0.4 % (0.0-1.0); EOS # 0.1 10*3/uL (0.0-0.4); EOS % 1.3 % (1.0-4.0); HEMATOCRIT 26.5 % (37.0-47.0); LYMPH # 1.2 10*3/uL (1.3-4.4); LYMPH % 14.7 % (27.0-41.0); MEAN CELL VOLUME 84.7 fl (81.0-99.0); MEAN CORPUSCULAR HGB 26.8 pg (27.0-31.0); MEAN CORPUSCULAR HGB CONC 31.7 g/dl (33.0-37.0); MEAN PLATELET VOLUME 11.7 fl (9.6-12.3); MONO # 0.6 10*3/uL (0.1-1.0); MONO % 7.2 % (3.0-9.0); NEUT # 6.2 10*3/uL (2.3-7.9); PLATELET COUNT AUTOMATED 184 10*3/uL (130-400); RED BLOOD COUNT 3.13 10*6/uL (4.10-5.10); RED CELL DISTRI WIDTH 15.1 % (0-14.5); WHITE BLOOD COUNT 8.2 10*3/uL (4.8-10.8)
[2020-07-02 08:01] VITALS: BP 109/64
--- NOTE | 2020-07-02 08:01 | NUR ---
PT UP AND AWAKE. PT CONTINUES WITH LIQUID BROWN STOOL. VITALS STABLE SEE DETAILS. PT DENIES ABD PAIN, OR SOB. POX 94% RA, NC 2L USED PRN. PT SCHEDULED FOR COLONOSCOPY.
--- NOTE | 2020-07-02 11:05 | NUR ---
A 75, admitted to 5E, under the services of MARCUS Emmanuel DO with a diagnosis of GI BLEED. Chief complaint is GI BLEED. Patient arrived via stretcher from ER. Monitor applied. Initial assessment completed. Vital signs taken and recorded. MARCUS EMMANUEL DO notified of admission to the unit. Orders received. See assessment for past medical history, medications and allergies. Patient and/or family oriented to unit. [address] visitation policy reviewed. Clothing/patient valuable form completed. DENILSON BAER
[2020-07-02 12:00] VITALS: BP 140/82
--- NOTE | 2020-07-02 14:54 | NUR ---
PT OFF UNIT TO SURGERY
--- NOTE | 2020-07-02 15:19 | NUR ---
Pot Maker in to talk to patient. Patient states that she lives at Home with her daughter There are 13 steps in the home. Physician: PATIENCE OLIVEIRA [facility]acy: [facility] Home health services: [facility] 1 day per week, 2 hours Patient's level of ADLs: Independent Patient has working utilities: yes DME: None Follow-up physician's appointment after d/c: Per Hospitalist office Does patient want to access PORTAL?: Declines Discharge plan at this time is for Pt. to return Home to Live with her Daughter. Daughter assists Pt. in the Home and Pt. states that there are No Home Needs at this time. ADONAY BERRY LPN
[2020-07-02 17:37] VITALS: BP 113/63
[2020-07-02 17:52] VITALS: BP 138/77
[2020-07-02 18:07] VITALS: BP 120/69
--- NOTE | 2020-07-02 18:50 | NUR ---
DR BAUGH ON UNIT, ORDERS RECEIVED.
[2020-07-02 20:00] VITALS: BP 120/78
[2020-07-03] VITALS: BP 115/84
--- NOTE | 2020-07-03 04:00 | NUR ---
SLEEPING NOT AWAKEND PER IM POLICY. RESP EASY AND REG.
[2020-07-03 06:37] LABS: BASO % 0.7 % (0.0-1.0); EOS # 0.5 10*3/uL (0.0-0.4); EOS % 8.6 % (1.0-4.0); HEMATOCRIT 26.7 % (37.0-47.0); LYMPH # 1.2 10*3/uL (1.3-4.4); LYMPH % 20.6 % (27.0-41.0); MEAN CELL VOLUME 86.1 fl (81.0-99.0); MEAN CORPUSCULAR HGB 26.8 pg (27.0-31.0); MEAN CORPUSCULAR HGB CONC 31.1 g/dl (33.0-37.0); MEAN PLATELET VOLUME 11.3 fl (9.6-12.3); MONO # 0.5 10*3/uL (0.1-1.0); MONO % 8.6 % (3.0-9.0); NEUT # 3.7 10*3/uL (2.3-7.9); NEUT % 61.2 % (47.0-73.0); PLATELET COUNT AUTOMATED 162 10*3/uL (130-400); RED CELL DISTRI WIDTH 14.6 % (0-14.5)
[2020-07-03 06:45] LABS: BUN 8 mg/dl (7-24); CHLORIDE 109 mmol/L (98-107); POTASSIUM 3.1 mmol/L (3.5-5.1); SODIUM 138 mmol/L (136-145)
[2020-07-03 08:00] VITALS: BP 126/70
[2020-07-03 12:00] VITALS: BP 122/75
--- NOTE | 2020-07-03 14:52 | NUR ---
PT RESTING IN BED WATCHING TV. RESPS EASY ON RA. VOICES NO OTHER NEEDS AT THIS TIME.WILL CONTINUE TO MONITOR. CALL LIGHT IN REACH.
[2020-07-03 16:00] VITALS: BP 111/61
[2020-07-03 20:00] VITALS: BP 105/62
[2020-07-04] VITALS: BP 116/63
[2020-07-04 07:32] LABS: ALBUMIN 2.7 gm/dl (3.1-4.5); ALKALINE PHOSPHATASE 85 U/L (45-117); BUN 6 mg/dl (7-24); CHLORIDE 108 mmol/L (98-107); CREATININE 0.58 mg/dL (0.55-1.02); POTASSIUM 3.5 mmol/L (3.5-5.1); SGOT/AST 10 IU/L (3-35); SGPT/ALT 10 U/L (12-78); SODIUM 138 mmol/L (136-145); TOTAL PROTEIN 6.7 gm/dL (6.4-8.2)
[2020-07-04 08:00] VITALS: BP 137/76
[2020-07-04 08:06] LABS: BASO % 0.6 % (0.0-1.0); EOS # 0.6 10*3/uL (0.0-0.4); HEMATOCRIT 27.4 % (37.0-47.0); LYMPH % 15.6 % (27.0-41.0); MEAN CELL VOLUME 84.6 fl (81.0-99.0); MEAN CORPUSCULAR HGB 26.5 pg (27.0-31.0); MEAN CORPUSCULAR HGB CONC 31.4 g/dl (33.0-37.0); MEAN PLATELET VOLUME 11.8 fl (9.6-12.3); MONO # 0.5 10*3/uL (0.1-1.0); MONO % 8.5 % (3.0-9.0); NEUT # 4.2 10*3/uL (2.3-7.9); PLATELET COUNT AUTOMATED 175 10*3/uL (130-400); RED BLOOD COUNT 3.24 10*6/uL (4.10-5.10); RED CELL DISTRI WIDTH 14.5 % (0-14.5); WHITE BLOOD COUNT 6.3 10*3/uL (4.8-10.8)
--- NOTE | 2020-07-04 08:22 | NUR ---
24 HR chart check completed.
--- NOTE | 2020-07-04 09:00 | NUR ---
RESTING IN BED WITH NO ACUTE DISTRESS NOTED. RESPIRATIONS EASY. LUNGS DIMINISHED, CLEAR. PULSE OX 96% RA. CALL LIGHT WITHIN REACH. NO VOICED COMPLAINTS
--- NOTE | 2020-07-04 09:15 | NUR ---
PATIENT BLADDER SCANNER PER ORDER, 17 CC. PATIENT DENIES URGE/NEED TO VOID
[2020-07-04 12:00] VITALS: BP 126/67
[2020-07-04 13:29] LABS: BILIRUBIN Negative (Negative); BLOOD Negative (Negative); CLARITY Clear (Clear); COLOR Yellow (Yellow); GLUCOSE Negative (Negative); KETONE Negative (Negative); LEUKO ESTERASE 1+ (Negative); NITRITE Negative (Negative); PH 6.5 (4.5-8.0); SPECIFIC GRAVITY <= 1.005 (1.001-1.030)
[2020-07-04 13:58] LABS: BACTERIA 1+
--- NOTE | 2020-07-04 14:00 | NUR ---
SITTING IN RECLINER LOOKING OUT WINDOW. NO DISTRESS NOTED. RESPIRATIONS EASY. CALL LIGHT WITHIN REACH. NO VOICED COMPLAINTS
[2020-07-04 16:00] VITALS: BP 134/68
--- NOTE | 2020-07-04 16:00 | NUR ---
MED REC UP TO DATE, MEDS NEED REORDERED
[2020-07-04 20:00] VITALS: BP 110/67
--- NOTE | 2020-07-04 20:30 | NUR ---
DR REID CONTACTED AND INFORMED HOME MEDS UP TO DATE AND NEED ORDERED
--- NOTE | 2020-07-04 22:00 | NUR ---
RESTING IN BED WITH NO DISTRESS NOTED. RESPIRATIONS EASY. CALL LIGHT WITHIN REACH. NO VOICED COMPLAINTS
--- NOTE | 2020-07-04 22:55 | NUR ---
DR REID CONTACTED, NEW ORDERS RECEIVED FOR SLEEPING PILL AT PATIENT'S REQUEST
--- NOTE | 2020-07-04 23:26 | NUR ---
PATIENT MEDICATED WITH RESTORIL FOR COMPLAINTS OF INSOMNIA. WILL MONITOR FOR EFFECTIVENESS.
[2020-07-05] VITALS: BP 120/73
--- NOTE | 2020-07-05 00:52 | NUR ---
RESTORIL NOT REALLY EFFECTIVE. PATIENT IN BATHROOM WASHING UP. WILL CONTINUE TO MONITOR.
[2020-07-05 07:05] LABS: BASO % 0.6 % (0.0-1.0); EOS # 0.5 10*3/uL (0.0-0.4); HEMATOCRIT 30.1 % (37.0-47.0); LYMPH % 21.6 % (27.0-41.0); MEAN CELL VOLUME 86.7 fl (81.0-99.0); MEAN CORPUSCULAR HGB 26.8 pg (27.0-31.0); MEAN CORPUSCULAR HGB CONC 30.9 g/dl (33.0-37.0); MEAN PLATELET VOLUME 11.6 fl (9.6-12.3); MONO # 0.6 10*3/uL (0.1-1.0); MONO % 12.3 % (3.0-9.0); NEUT # 2.6 10*3/uL (2.3-7.9); NEUT % 55.5 % (47.0-73.0); PLATELET COUNT AUTOMATED 191 10*3/uL (130-400); RED BLOOD COUNT 3.47 10*6/uL (4.10-5.10); WHITE BLOOD COUNT 4.6 10*3/uL (4.8-10.8)
[2020-07-05 07:27] LABS: BUN 5 mg/dl (7-24); CHLORIDE 109 mmol/L (98-107); CREATININE 0.68 mg/dL (0.55-1.02); POTASSIUM 2.9 mmol/L (3.5-5.1); SODIUM 142 mmol/L (136-145)
--- NOTE | 2020-07-05 07:38 | NUR ---
REC'D CALL FROM RADIOLOGY ASKING IF BOWEL PREP WAS COMPLETED FOR BARIUM ENEMA TODAY. NO PREP ORDERED OR STARTED. INFORMED TEST WOULD NEED TO BE RESCHEDULED TO 07/06 AND PREP WOULD NEED TO START DILIP. PREP ORDERS PLACED AND TEST RESCHEDULED.
[2020-07-05 08:16] VITALS: BP 126/68
--- NOTE | 2020-07-05 11:32 | NUR ---
NO COMPLAINTS VOICED. AROUSED EASILY FROM NAP. PO CARAFATE TAKEN WITH EASE. CALL LIGHT IN REACH.
[2020-07-05 12:00] VITALS: BP 113/74
--- NOTE | 2020-07-05 15:17 | NUR ---
CONTINUES TO DENY NEEDS AT THIS TIME. CALL LIGHT IN REACH.
[2020-07-05 16:00] VITALS: BP 105/67
[2020-07-05 20:00] VITALS: BP 116/75
--- NOTE | 2020-07-05 20:05 | NUR ---
24 HR chart check completed.
--- NOTE | 2020-07-05 21:00 | NUR ---
RESTING IN BED WITH NO ACUTE DISTRESS NOTED. RESPIRATIONS EASY. LUNGS DIMINISHED, CLEAR. PULSE OX 97% RA. CALL LIGHT WITHIN REACH. NO VOICED COMPLAINTS
--- NOTE | 2020-07-05 22:08 | NUR ---
MEDICATED WITH RESTORIL TO ASSIST WITH SLEEP. WILL MONITOR
--- NOTE | 2020-07-05 23:00 | NUR ---
MEDS EFFECTIVE. SLEEPING
[2020-07-06] VITALS: BP 95/66
--- NOTE | 2020-07-06 00:30 | NUR ---
SLEEPING WITH NO DISTRESS NOTED. RESPIRATIONS EASY. VSS. CALL LIGHT WITHIN REACH
--- NOTE | 2020-07-06 05:30 | NUR ---
remains npo. fleets enema given per order, patient tolerated well.
[2020-07-06 06:57] LABS: BASO % 0.8 % (0.0-1.0); EOS # 0.4 10*3/uL (0.0-0.4); EOS % 7.6 % (1.0-4.0); HEMATOCRIT 32.2 % (37.0-47.0); LYMPH # 1.3 10*3/uL (1.3-4.4); LYMPH % 27.8 % (27.0-41.0); MEAN CELL VOLUME 88.7 fl (81.0-99.0); MEAN CORPUSCULAR HGB 26.2 pg (27.0-31.0); MEAN CORPUSCULAR HGB CONC 29.5 g/dl (33.0-37.0); MEAN PLATELET VOLUME 11.4 fl (9.6-12.3); MONO # 0.6 10*3/uL (0.1-1.0); MONO % 11.9 % (3.0-9.0); NEUT # 2.5 10*3/uL (2.3-7.9); NEUT % 51.9 % (47.0-73.0); PLATELET COUNT AUTOMATED 207 10*3/uL (130-400); RED BLOOD COUNT 3.63 10*6/uL (4.10-5.10); RED CELL DISTRI WIDTH 14.5 % (0-14.5); WHITE BLOOD COUNT 4.7 10*3/uL (4.8-10.8)
[2020-07-06 07:22] LABS: BUN 4 mg/dl (7-24); CHLORIDE 110 mmol/L (98-107); CREATININE 0.87 mg/dL (0.55-1.02); POTASSIUM 3.7 mmol/L (3.5-5.1); SODIUM 139 mmol/L (136-145)
--- NOTE | 2020-07-06 08:11 | NUR ---
OFF FLOOR FOR BARIUM ENEMA.
--- NOTE | 2020-07-06 08:58 | NUR ---
CALL REC'D FROM RADIOLOGY. PT DID NOT TOLERATE ENEMA WELL. YELLED AND HOLLERED WHEN INSERTED. ULTIMATELY REFUSED TEST. BACK TO ROOM AT THIS TIME.
--- NOTE | 2020-07-06 09:01 | NUR ---
NOTIFIED OF BARIUM REFUSAL.
--- NOTE | 2020-07-06 09:09 | NUR ---
NOTIFIED OF BARIUM ENEMA REFUSAL. SAID PT WILL POSSIBLY NEED ANOTHER COLO TODAY AND KEEP NPO.
[2020-07-06 12:00] VITALS: BP 121/66
[2020-07-06 16:00] VITALS: BP 109/62
--- NOTE | 2020-07-06 20:05 | NUR ---
PATIENT OFF FLOOR AT SURGERY AT THIS TIME.
[2020-07-06 22:12] VITALS: BP 109/64
[2020-07-06 22:27] VITALS: BP 114/66
[2020-07-06 22:42] VITALS: BP 124/70
[2020-07-07] VITALS: BP 125/68
--- NOTE | 2020-07-07 00:31 | NUR ---
PATIENT DOWN FOR CT ENTEROGRAPHY AT THIS TIME.
[2020-07-07 12:00] VITALS: BP 120/65
[2020-07-07] MEDS ORDERED: OMEPRAZOLE40 MG PO (14:30)
[2020-07-07] MEDS ORDERED: Carafate1 GM PO (14:30)
--- NOTE | 2020-07-07 14:50 | NUR ---
Discharge instructions reviewed with patient. Patient receptive and verbalizes understanding. Follow-up care arranged. Written instructions given to patient. Pt daughter works until 1630 and will picking supervisor pt after that. IV and monitor removed. Pt aware to picking supervisor new meds at her pharmacy after dc. Referral and script for lab work given to pt.
[2020-07-07 16:00] VITALS: BP 110/69
--- NOTE | 2020-07-07 17:20 | NUR ---
Pt dc via wheelchair to meet daughter who is picking up out front. Dc with belongings.
== END 2020-07-07 17:20 | disposition home or self-care (01) | DRG 377 ==
LOC: ED 06:25 → EDHOLD 10:17 → 5E 10:17 → EDHOLD 11:30 → 5E 07-02 10:39
PROVIDERS: Hospitalist; Internal Medicine; ADMIT Family Medicine; ATTEND Family Medicine
PROC: 30233N1 Transfusion of Nonautologous Red Blood Cells into Peripheral Vein, Percutaneous Approach (ICD-10-PCS; 2020-07-01)
PROC: 0DB68ZX Excision of Stomach, Via Natural or Artificial Opening Endoscopic, Diagnostic (ICD-10-PCS; principal; 2020-07-02)
PROC: 0DJD8ZZ Inspection of Lower Intestinal Tract, Via Natural or Artificial Opening Endoscopic (ICD-10-PCS; 2020-07-02)
PROC: 0DJD8ZZ Inspection of Lower Intestinal Tract, Via Natural or Artificial Opening Endoscopic (ICD-10-PCS; 2020-07-06)
DX: K29.71 Gastritis, unspecified, with bleeding (principal); E43 Unspecified severe protein-calorie malnutrition; D62 Acute posthemorrhagic anemia; I50.30 Unspecified diastolic (congestive) heart failure; Z68.1 Body mass index [BMI] 19.9 or less, adult; K57.31 Diverticulosis of large intestine without perforation or abscess with bleeding; E87.6 Hypokalemia; I48.0 Paroxysmal atrial fibrillation; J44.9 Chronic obstructive pulmonary disease, unspecified; M81.0 Age-related osteoporosis without current pathological fracture; F32.9 Major depressive disorder, single episode, unspecified; E78.5 Hyperlipidemia, unspecified; M19.90 Unspecified osteoarthritis, unspecified site; I10 Essential (primary) hypertension; E87.8 Other disorders of electrolyte and fluid balance, not elsewhere classified; R73.9 Hyperglycemia, unspecified; F17.210 Nicotine dependence, cigarettes, uncomplicated; I25.10 Atherosclerotic heart disease of native coronary artery without angina pectoris; K44.9 Diaphragmatic hernia without obstruction or gangrene; Z88.0 Allergy status to penicillin; Z82.49 Family history of ischemic heart disease and other diseases of the circulatory system; Z83.6 Family history of other diseases of the respiratory system; Z86.73 Personal history of transient ischemic attack (TIA), and cerebral infarction without residual deficits; Z87.81 Personal history of (healed) traumatic fracture; Z71.6 Tobacco abuse counseling

== ENCOUNTER 2020-07-25 01:16 | Emergency (ER) | payer OTHER, MEDICAID ==
[~2020-07-25] VITALS: Ht 162.5 cm; Wt 54.4 kg
[~2020-07-25 01:16] MED LIST changes: +Carafate1 GM PO; +OMEPRAZOLE40 MG PO
[2020-07-25 01:36] LABS: EOS % 0.4 % (1.0-4.0); HEMATOCRIT 30.1 % (37.0-47.0); LYMPH # 1.4 10*3/uL (1.3-4.4); MEAN CELL VOLUME 89.1 fl (81.0-99.0); MEAN CORPUSCULAR HGB 25.4 pg (27.0-31.0); MEAN CORPUSCULAR HGB CONC 28.6 g/dl (33.0-37.0); MEAN PLATELET VOLUME 10.7 fl (9.6-12.3); MONO # 0.5 10*3/uL (0.1-1.0); NEUT # 6.4 10*3/uL (2.3-7.9); NEUT % 76.4 % (47.0-73.0); PLATELET COUNT AUTOMATED 258 10*3/uL (130-400); RED BLOOD COUNT 3.38 10*6/uL (4.10-5.10); RED CELL DISTRI WIDTH 15.8 % (0-14.5); WHITE BLOOD COUNT 8.4 10*3/uL (4.8-10.8)
[2020-07-25 02:01] LABS: ACT PARTIAL THROMBO TIME 25.1 SECONDS (20.0-32.1)
[2020-07-25 02:04] LABS: ALBUMIN 3.4 gm/dl (3.1-4.5); ALKALINE PHOSPHATASE 86 U/L (45-117); BUN 14 mg/dl (7-24); CHLORIDE 110 mmol/L (98-107); CREATININE 0.61 mg/dL (0.55-1.02); POTASSIUM 3.3 mmol/L (3.5-5.1); SGOT/AST 8 IU/L (3-35); SGPT/ALT 14 U/L (12-78); SODIUM 142 mmol/L (136-145)
== END 2020-07-25 02:40 | disposition short-term general hospital (02) ==
LOC: ED 01:16
PROVIDERS: Internal Medicine
DX: I21.3 ST elevation (STEMI) myocardial infarction of unspecified site (principal); I10 Essential (primary) hypertension; F32.9 Major depressive disorder, single episode, unspecified; E78.00 Pure hypercholesterolemia, unspecified; J44.9 Chronic obstructive pulmonary disease, unspecified; F17.210 Nicotine dependence, cigarettes, uncomplicated; Z88.0 Allergy status to penicillin; Z79.899 Other long term (current) drug therapy; Z79.82 Long term (current) use of aspirin; Z98.890 Other specified postprocedural states; Z86.14 Personal history of Methicillin resistant Staphylococcus aureus infection; Z86.73 Personal history of transient ischemic attack (TIA), and cerebral infarction without residual deficits

== ENCOUNTER 2020-08-07 11:06 | Inpatient (IN) | payer OTHER, MEDICAID ==
[2020-08-07] VITALS (32 sets, daily range): BP systolic 95–126; BP diastolic 36–68
[~2020-08-07] VITALS: Ht 175.2 cm; Wt 45.1 kg
[~2020-08-07 11:06] MED LIST changes: -LIPITOR20 MG PO; +LIPITOR40 MG PO
[2020-08-07 11:48] LABS: MEAN CELL VOLUME 89.5 fl (81.0-99.0); MEAN CORPUSCULAR HGB 26.3 pg (27.0-31.0); MEAN CORPUSCULAR HGB CONC 29.4 g/dl (33.0-37.0); MEAN PLATELET VOLUME 10.2 fl (9.6-12.3); PLATELET COUNT AUTOMATED 195 10*3/uL (130-400); RED CELL DISTRI WIDTH 17.4 % (0-14.5); WHITE BLOOD COUNT 9.3 10*3/uL (4.8-10.8)
[2020-08-07 11:57] LABS: ACT PARTIAL THROMBO TIME 24.3 SECONDS (20.0-32.1); INTERNATIONAL NORM RATIO 1.2 (2.0-3.5)
[2020-08-07 12:03] LABS: ALKALINE PHOSPHATASE 69 U/L (45-117); BUN 25 mg/dl (7-24); CHLORIDE 108 mmol/L (98-107); CREATININE 0.88 mg/dL (0.55-1.02); OVALOCYTES FEW; PLATELET SUFFICIENCY NORMAL (NORMAL); POTASSIUM 3.2 mmol/L (3.5-5.1); SGOT/AST 7 IU/L (3-35); SGPT/ALT 11 U/L (12-78); SODIUM 140 mmol/L (136-145); TOTAL CELLS COUNTED 100 #CELLS; TOTAL PROTEIN 6.8 gm/dL (6.4-8.2)
[2020-08-07 12:04] LABS: TROPONIN I < 0.015 ng/ml (<0.045)
[2020-08-07 19:32] LABS: HEMATOCRIT 21.5 % (37.0-47.0); MEAN CORPUSCULAR HGB 27.1 pg (27.0-31.0); MEAN CORPUSCULAR HGB CONC 31.6 g/dl (33.0-37.0); MEAN PLATELET VOLUME 10.2 fl (9.6-12.3); PLATELET COUNT AUTOMATED 167 10*3/uL (130-400); RED BLOOD COUNT 2.51 10*6/uL (4.10-5.10); RED CELL DISTRI WIDTH 15.5 % (0-14.5); WHITE BLOOD COUNT 7.9 10*3/uL (4.8-10.8)
[2020-08-07 19:34] LABS: MEAN CELL VOLUME 85.7 fl (81.0-99.0)
[2020-08-07 19:46] LABS: BUN 18 mg/dl (7-24); CHLORIDE 112 mmol/L (98-107); CREATININE 0.63 mg/dL (0.55-1.02); POTASSIUM 3.8 mmol/L (3.5-5.1); SODIUM 141 mmol/L (136-145)
[2020-08-07 19:52] LABS: PLATELET SUFFICIENCY NORMAL (NORMAL); TOTAL CELLS COUNTED 100 #CELLS
[2020-08-08 03:14] VITALS: BP 122/64
[2020-08-08 06:07] LABS: ALBUMIN 2.7 gm/dl (3.1-4.5); BUN 18 mg/dl (7-24); CHLORIDE 111 mmol/L (98-107); POTASSIUM 3.5 mmol/L (3.5-5.1); SODIUM 140 mmol/L (136-145)
[2020-08-08 06:10] LABS: ALKALINE PHOSPHATASE 62 U/L (45-117); CREATININE 0.63 mg/dL (0.55-1.02); SGOT/AST 9 IU/L (3-35); SGPT/ALT 9 U/L (12-78); TOTAL PROTEIN 6.1 gm/dL (6.4-8.2)
[2020-08-08 06:12] LABS: BASO % 0.4 % (0.0-1.0); EOS # 0.3 10*3/uL (0.0-0.4); EOS % 3.4 % (1.0-4.0); HEMATOCRIT 24.4 % (37.0-47.0); LYMPH # 1.4 10*3/uL (1.3-4.4); LYMPH % 18.6 % (27.0-41.0); MEAN CELL VOLUME 85.9 fl (81.0-99.0); MEAN CORPUSCULAR HGB 27.8 pg (27.0-31.0); MEAN CORPUSCULAR HGB CONC 32.4 g/dl (33.0-37.0); MEAN PLATELET VOLUME 10.8 fl (9.6-12.3); MONO # 0.4 10*3/uL (0.1-1.0); MONO % 5.6 % (3.0-9.0); NEUT # 5.4 10*3/uL (2.3-7.9); NEUT % 71.7 % (47.0-73.0); PLATELET COUNT AUTOMATED 172 10*3/uL (130-400); RED BLOOD COUNT 2.84 10*6/uL (4.10-5.10); RED CELL DISTRI WIDTH 15.9 % (0-14.5); WHITE BLOOD COUNT 7.5 10*3/uL (4.8-10.8)
[2020-08-08 06:18] LABS: ACT PARTIAL THROMBO TIME 25.1 SECONDS (20.0-32.1); INTERNATIONAL NORM RATIO 1.1 (2.0-3.5)
[2020-08-08 06:43] VITALS: BP 121/72
[2020-08-08 08:53] VITALS: BP 154/76
[2020-08-08 12:00] VITALS: BP 143/86
[2020-08-08 16:00] VITALS: BP 113/86
[2020-08-08 16:33] LABS: BILIRUBIN Negative (Negative); BLOOD Negative (Negative); CLARITY Clear (Clear); COLOR Yellow (Yellow); GLUCOSE Negative (Negative); KETONE Trace (Negative); LEUKO ESTERASE Trace (Negative); NITRITE Negative (Negative); PH 6.5 (4.5-8.0); SPECIFIC GRAVITY 1.015 (1.001-1.030)
[2020-08-08 16:45] LABS: BACTERIA TRACE; MUCOUS 1+
[2020-08-08 20:00] VITALS: BP 119/61
[2020-08-09] VITALS: BP 143/70
[2020-08-09 06:50] LABS: BASO % 0.3 % (0.0-1.0); EOS # 0.3 10*3/uL (0.0-0.4); EOS % 5.1 % (1.0-4.0); HEMATOCRIT 25.6 % (37.0-47.0); LYMPH # 1.1 10*3/uL (1.3-4.4); LYMPH % 16.5 % (27.0-41.0); MEAN CELL VOLUME 86.5 fl (81.0-99.0); MEAN CORPUSCULAR HGB 27.4 pg (27.0-31.0); MEAN CORPUSCULAR HGB CONC 31.6 g/dl (33.0-37.0); MEAN PLATELET VOLUME 10.2 fl (9.6-12.3); MONO # 0.4 10*3/uL (0.1-1.0); NEUT # 4.7 10*3/uL (2.3-7.9); NEUT % 71.8 % (47.0-73.0); PLATELET COUNT AUTOMATED 197 10*3/uL (130-400); RED BLOOD COUNT 2.96 10*6/uL (4.10-5.10); RED CELL DISTRI WIDTH 16.1 % (0-14.5); WHITE BLOOD COUNT 6.5 10*3/uL (4.8-10.8)
[2020-08-09 07:19] LABS: ALBUMIN 2.7 gm/dl (3.1-4.5); ALKALINE PHOSPHATASE 68 U/L (45-117); BUN 13 mg/dl (7-24); CHLORIDE 108 mmol/L (98-107); CREATININE 0.57 mg/dL (0.55-1.02); POTASSIUM 3.7 mmol/L (3.5-5.1); SGOT/AST 9 IU/L (3-35); SGPT/ALT 11 U/L (12-78); SODIUM 139 mmol/L (136-145); TOTAL PROTEIN 6.4 gm/dL (6.4-8.2)
[2020-08-09 08:00] VITALS: BP 133/70
[2020-08-09 12:00] VITALS: BP 138/68
[2020-08-09] MEDS ORDERED: CARVEDILOL3.125 MG PO (12:53)
== END 2020-08-09 18:24 | disposition home or self-care (01) | DRG 378 ==
LOC: ED 11:06 → EDHOLD 12:08 → 5E 12:08
PROVIDERS: Emergency Medicine; Internal Medicine; Internal Medicine Gastroenterology; Social Worker Clinical; ADMIT Internal Medicine; ATTEND Internal Medicine
PROC: 30233N1 Transfusion of Nonautologous Red Blood Cells into Peripheral Vein, Percutaneous Approach (ICD-10-PCS; principal; 2020-08-07)
DX: K92.2 Gastrointestinal hemorrhage, unspecified (principal); E44.0 Moderate protein-calorie malnutrition; Z68.1 Body mass index [BMI] 19.9 or less, adult; Z86.73 Personal history of transient ischemic attack (TIA), and cerebral infarction without residual deficits; Z51.5 Encounter for palliative care; Z66 Do not resuscitate; M81.0 Age-related osteoporosis without current pathological fracture; E78.5 Hyperlipidemia, unspecified; D50.0 Iron deficiency anemia secondary to blood loss (chronic); E87.6 Hypokalemia; I08.3 Combined rheumatic disorders of mitral, aortic and tricuspid valves; D72.810 Lymphocytopenia; R73.9 Hyperglycemia, unspecified; F17.200 Nicotine dependence, unspecified, uncomplicated; G25.0 Essential tremor; D72.9 Disorder of white blood cells, unspecified; I25.10 Atherosclerotic heart disease of native coronary artery without angina pectoris; I48.0 Paroxysmal atrial fibrillation; F17.210 Nicotine dependence, cigarettes, uncomplicated; Z79.01 Long term (current) use of anticoagulants; Z82.49 Family history of ischemic heart disease and other diseases of the circulatory system; Z82.5 Family history of asthma and other chronic lower respiratory diseases; Z79.51 Long term (current) use of inhaled steroids; Z79.82 Long term (current) use of aspirin; Z79.1 Long term (current) use of non-steroidal anti-inflammatories (NSAID); Z79.899 Other long term (current) drug therapy; Z95.5 Presence of coronary angioplasty implant and graft; Z88.0 Allergy status to penicillin

== ENCOUNTER → 2020-08-18 | Outpatient (CLI) | payer OTHER, MEDICAID ==
[~2020-08-18] MED LIST changes: +AMITRIPTYLINE H10 M1 PO; +CARVEDILOL3.125 MG PO; +LASIX40 MG PO; +LISINOPRIL5 MG PO; +PLAVIX75 M1 PO; +POTASSIUM CHLO20 ME3 PO
[2020-08-18 09:46] LABS: HEMATOCRIT 28.7 % (37.0-47.0); MEAN CELL VOLUME 91.4 fl (81.0-99.0); MEAN CORPUSCULAR HGB 27.4 pg (27.0-31.0); MEAN PLATELET VOLUME 10.1 fl (9.6-12.3); RED BLOOD COUNT 3.14 10*6/uL (4.10-5.10); RED CELL DISTRI WIDTH 15.7 % (0-14.5); WHITE BLOOD COUNT 5.8 10*3/uL (4.8-10.8)
[2020-08-18 10:09] LABS: BUN 6 mg/dl (7-24); CHLORIDE 108 mmol/L (98-107); CREATININE 0.65 mg/dL (0.55-1.02); POTASSIUM 3.8 mmol/L (3.5-5.1); SODIUM 140 mmol/L (136-145)
== END | disposition home or self-care (01) ==
LOC: LAB 09:30
PROVIDERS: ATTEND Physician Assistant
DX: D50.0 Iron deficiency anemia secondary to blood loss (chronic) (principal)

== ENCOUNTER → 2020-08-26 | Outpatient (CLI) | payer OTHER, MEDICAID ==
[2020-08-26 10:27] LABS: HEMATOCRIT 29.2 % (37.0-47.0); MEAN CORPUSCULAR HGB 27.4 pg (27.0-31.0); MEAN CORPUSCULAR HGB CONC 30.8 g/dl (33.0-37.0); MEAN PLATELET VOLUME 9.8 fl (9.6-12.3); RED BLOOD COUNT 3.28 10*6/uL (4.10-5.10); RED CELL DISTRI WIDTH 15.7 % (0-14.5); WHITE BLOOD COUNT 6.9 10*3/uL (4.8-10.8)
== END | disposition home or self-care (01) ==
LOC: LAB 10:12
PROVIDERS: ATTEND Physician Assistant
DX: D64.9 Anemia, unspecified (principal); G89.29 Other chronic pain; F51.01 Primary insomnia

== ENCOUNTER 2020-10-05 10:03 | Inpatient (IN) | payer OTHER, MEDICAID ==
[~2020-10-05] VITALS: Ht 167.6 cm; Wt 45.4 kg
[2020-10-05] VITALS (19 sets, daily range): BP systolic 88–132; BP diastolic 35–80
[~2020-10-05 10:03] MED LIST changes: -AMITRIPTYLINE H10 M1 PO; -LASIX40 MG PO; -LISINOPRIL5 MG PO; -PLAVIX75 M1 PO; -POTASSIUM CHLO20 ME3 PO
[2020-10-05 10:34] LABS: HEMATOCRIT 22.4 % (37.0-47.0); MEAN CELL VOLUME 87.8 fl (81.0-99.0); MEAN CORPUSCULAR HGB 26.3 pg (27.0-31.0); MEAN CORPUSCULAR HGB CONC 29.9 g/dl (33.0-37.0); MEAN PLATELET VOLUME 10.2 fl (9.6-12.3); PLATELET COUNT AUTOMATED 296 10*3/uL (130-400); RED BLOOD COUNT 2.55 10*6/uL (4.10-5.10); RED CELL DISTRI WIDTH 16.2 % (0-14.5); WHITE BLOOD COUNT 8.9 10*3/uL (4.8-10.8)
[2020-10-05 10:43] LABS: ACT PARTIAL THROMBO TIME 29.2 SECONDS (20.0-32.1); INTERNATIONAL NORM RATIO 1.2 (2.0-3.5)
[2020-10-05 10:48] LABS: BASOPHILS 2 % (0-1); OVALOCYTES FEW; PLATELET SUFFICIENCY NORMAL (NORMAL); TOTAL CELLS COUNTED 100 #CELLS
[2020-10-05 10:49] LABS: ALBUMIN 3.2 gm/dl (3.1-4.5); ALKALINE PHOSPHATASE 106 U/L (45-117); BUN 44 mg/dl (7-24); BURR CELLS FEW; CHLORIDE 106 mmol/L (98-107); CREATININE 1.55 mg/dL (0.55-1.02); LIPASE 138 U/L (73-393); POTASSIUM 5.1 mmol/L (3.5-5.1); SGOT/AST 10 IU/L (3-35); SGPT/ALT 11 U/L (12-78); SODIUM 135 mmol/L (136-145); TOTAL PROTEIN 8.1 gm/dL (6.4-8.2)
[2020-10-05 10:52] LABS: TROPONIN I < 0.015 ng/ml (<0.045)
[2020-10-05 11:51] LABS: IRON 31 ug/dL (50-170); TOTAL IRON BINDING CAPACITY 433 ug/dl (250-450)
[2020-10-05 12:59] LABS: FERRITIN 14.2 ng/mL (10.0-291.0)
[2020-10-05 13:35] LABS: BILIRUBIN Negative (Negative); BLOOD Negative (Negative); CLARITY Clear (Clear); COLOR Yellow (Yellow); GLUCOSE Negative (Negative); KETONE Negative (Negative); LEUKO ESTERASE 1+ (Negative); NITRITE Negative (Negative); UROBILINOGEN 0.2 E.U./dl (0.0-1.0)
[2020-10-05 13:46] LABS: BACTERIA 2+; WBC 16-20 wbc/hpf (0-5)
[2020-10-05] MEDS ORDERED: PLAVIX75 M1 PO (15:51)
[2020-10-05] MEDS ORDERED: LASIX40 MG PO (15:51)
[2020-10-05] MEDS ORDERED: AMLODIPINE BESYL5 MG PO (15:52)
[2020-10-05] MEDS ORDERED: ELIQUIS5 M1 PO (15:53)
[2020-10-05] MEDS ORDERED: LISINOPRIL5 MG PO (15:54)
[2020-10-05] MEDS ORDERED: POTASSIUM CHLO20 ME3 PO (15:54)
[2020-10-05] MEDS ORDERED: AMITRIPTYLINE H10 M1 PO (15:55)
[2020-10-05 20:57] LABS: BASO % 0.6 % (0.0-1.0); EOS # 0.2 10*3/uL (0.0-0.4); EOS % 2.8 % (1.0-4.0); HEMATOCRIT 27.6 % (37.0-47.0); LYMPH # 1.4 10*3/uL (1.3-4.4); LYMPH % 21.8 % (27.0-41.0); MEAN CELL VOLUME 85.7 fl (81.0-99.0); MEAN CORPUSCULAR HGB CONC 32.6 g/dl (33.0-37.0); MEAN PLATELET VOLUME 10.2 fl (9.6-12.3); MONO # 0.5 10*3/uL (0.1-1.0); MONO % 8.5 % (3.0-9.0); NEUT # 4.2 10*3/uL (2.3-7.9); NEUT % 66.1 % (47.0-73.0); PLATELET COUNT AUTOMATED 230 10*3/uL (130-400); RED BLOOD COUNT 3.22 10*6/uL (4.10-5.10); RED CELL DISTRI WIDTH 14.7 % (0-14.5); WHITE BLOOD COUNT 6.4 10*3/uL (4.8-10.8)
[2020-10-06] VITALS (11 sets, daily range): BP systolic 90–129; BP diastolic 45–78
[2020-10-06 06:17] LABS: ALBUMIN 3.1 gm/dl (3.1-4.5); BASO % 0.6 % (0.0-1.0); BUN 38 mg/dl (7-24); CHLORIDE 107 mmol/L (98-107); EOS # 0.3 10*3/uL (0.0-0.4); EOS % 3.9 % (1.0-4.0); HEMATOCRIT 26.9 % (37.0-47.0); LYMPH # 1.6 10*3/uL (1.3-4.4); LYMPH % 22.7 % (27.0-41.0); MEAN CELL VOLUME 86.5 fl (81.0-99.0); MEAN CORPUSCULAR HGB CONC 32.3 g/dl (33.0-37.0); MONO # 0.5 10*3/uL (0.1-1.0); MONO % 7.2 % (3.0-9.0); NEUT # 4.7 10*3/uL (2.3-7.9); NEUT % 65.3 % (47.0-73.0); PLATELET COUNT AUTOMATED 207 10*3/uL (130-400); POTASSIUM 4.5 mmol/L (3.5-5.1); RED BLOOD COUNT 3.11 10*6/uL (4.10-5.10); RED CELL DISTRI WIDTH 15.3 % (0-14.5); SODIUM 137 mmol/L (136-145); WHITE BLOOD COUNT 7.2 10*3/uL (4.8-10.8)
[2020-10-06 06:20] LABS: ALKALINE PHOSPHATASE 92 U/L (45-117); CREATININE 1.04 mg/dL (0.55-1.02); SGOT/AST 8 IU/L (3-35); SGPT/ALT 10 U/L (12-78); TOTAL PROTEIN 7.4 gm/dL (6.4-8.2)
[2020-10-07] VITALS: BP 109/55
[2020-10-07 05:00] VITALS: BP 111/65
[2020-10-07 06:10] LABS: BASO % 0.6 % (0.0-1.0); EOS # 0.4 10*3/uL (0.0-0.4); EOS % 6.7 % (1.0-4.0); HEMATOCRIT 25.8 % (37.0-47.0); LYMPH % 18.3 % (27.0-41.0); MEAN CORPUSCULAR HGB 27.6 pg (27.0-31.0); MEAN PLATELET VOLUME 10.1 fl (9.6-12.3); MONO # 0.5 10*3/uL (0.1-1.0); MONO % 9.8 % (3.0-9.0); NEUT # 3.4 10*3/uL (2.3-7.9); NEUT % 64.4 % (47.0-73.0); PLATELET COUNT AUTOMATED 187 10*3/uL (130-400); RED CELL DISTRI WIDTH 15.3 % (0-14.5); WHITE BLOOD COUNT 5.2 10*3/uL (4.8-10.8)
[2020-10-07 06:12] LABS: ALBUMIN 2.8 gm/dl (3.1-4.5); CHLORIDE 109 mmol/L (98-107); CREATININE 0.68 mg/dL (0.55-1.02); LIPASE 104 U/L (73-393); POTASSIUM 4.3 mmol/L (3.5-5.1); SGOT/AST 6 IU/L (3-35); SGPT/ALT 13 U/L (12-78); SODIUM 138 mmol/L (136-145)
[2020-10-07 06:15] LABS: ALKALINE PHOSPHATASE 91 U/L (45-117); BILIRUBIN, DIRECT 0.1 mg/dL (0.0-0.2)
[2020-10-07 06:16] LABS: BUN 19 mg/dl (7-24)
[2020-10-07 08:00] VITALS: BP 117/61
[2020-10-07 12:00] VITALS: BP 125/69
[2020-10-07 16:00] VITALS: BP 142/72
[2020-10-07 20:00] VITALS: BP 129/73
[2020-10-08] VITALS: BP 130/72
[2020-10-08 06:24] LABS: BASO % 0.7 % (0.0-1.0); EOS # 0.3 10*3/uL (0.0-0.4); EOS % 5.7 % (1.0-4.0); HEMATOCRIT 25.7 % (37.0-47.0); LYMPH % 17.9 % (27.0-41.0); MEAN CELL VOLUME 89.5 fl (81.0-99.0); MEAN CORPUSCULAR HGB 27.9 pg (27.0-31.0); MEAN CORPUSCULAR HGB CONC 31.1 g/dl (33.0-37.0); MEAN PLATELET VOLUME 10.1 fl (9.6-12.3); MONO # 0.5 10*3/uL (0.1-1.0); MONO % 9.8 % (3.0-9.0); NEUT # 3.6 10*3/uL (2.3-7.9); NEUT % 65.7 % (47.0-73.0); PLATELET COUNT AUTOMATED 183 10*3/uL (130-400); RED BLOOD COUNT 2.87 10*6/uL (4.10-5.10); RED CELL DISTRI WIDTH 15.2 % (0-14.5); WHITE BLOOD COUNT 5.4 10*3/uL (4.8-10.8)
[2020-10-08 06:29] LABS: BUN 16 mg/dl (7-24); CHLORIDE 107 mmol/L (98-107); POTASSIUM 4.3 mmol/L (3.5-5.1); SODIUM 138 mmol/L (136-145)
[2020-10-08 06:43] LABS: CREATININE 0.66 mg/dL (0.55-1.02)
[2020-10-08 08:00] VITALS: BP 110/58
[2020-10-08 12:00] VITALS: BP 112/70
== END 2020-10-08 14:26 | disposition home or self-care (01) | DRG 377 ==
LOC: ED 10:03 → EDHOLD 12:35 → ICCU 12:35 → 4E 10-07 13:50
PROVIDERS: Emergency Medicine; Internal Medicine; Social Worker Clinical; ADMIT Student in an Organized Health Care Education/Training Program; ATTEND Student in an Organized Health Care Education/Training Program
PROC: 30233N1 Transfusion of Nonautologous Red Blood Cells into Peripheral Vein, Percutaneous Approach (ICD-10-PCS; principal; 2020-10-05)
PROC: 0DB78ZX Excision of Stomach, Pylorus, Via Natural or Artificial Opening Endoscopic, Diagnostic (ICD-10-PCS; 2020-10-06)
DX: K29.01 Acute gastritis with bleeding (principal); N17.0 Acute kidney failure with tubular necrosis; S22.42XA Multiple fractures of ribs, left side, initial encounter for closed fracture; E87.2 Acidosis; E87.1 Hypo-osmolality and hyponatremia; D62 Acute posthemorrhagic anemia; I50.32 Chronic diastolic (congestive) heart failure; D68.9 Coagulation defect, unspecified; E44.0 Moderate protein-calorie malnutrition; K44.9 Diaphragmatic hernia without obstruction or gangrene; E83.41 Hypermagnesemia; F32.9 Major depressive disorder, single episode, unspecified; I48.0 Paroxysmal atrial fibrillation; G25.0 Essential tremor; J44.9 Chronic obstructive pulmonary disease, unspecified; I11.0 Hypertensive heart disease with heart failure; M81.0 Age-related osteoporosis without current pathological fracture; Z79.899 Other long term (current) drug therapy; I95.89 Other hypotension; E86.1 Hypovolemia; R00.0 Tachycardia, unspecified; R73.9 Hyperglycemia, unspecified; E78.5 Hyperlipidemia, unspecified; M19.91 Primary osteoarthritis, unspecified site; I35.0 Nonrheumatic aortic (valve) stenosis; X58.XXXA Exposure to other specified factors, initial encounter; Y93.89 Activity, other specified; Y92.89 Other specified places as the place of occurrence of the external cause; Z88.0 Allergy status to penicillin; Z95.5 Presence of coronary angioplasty implant and graft; Z87.891 Personal history of nicotine dependence; Z82.49 Family history of ischemic heart disease and other diseases of the circulatory system; Z86.73 Personal history of transient ischemic attack (TIA), and cerebral infarction without residual deficits; I25.2 Old myocardial infarction; Y99.8 Other external cause status

== ENCOUNTER 2020-11-11 08:06 | Emergency (ER) | payer OTHER, MEDICAID ==
[~2020-11-11] VITALS: Ht 167.6 cm; Wt 49.4 kg
[~2020-11-11 08:06] MED LIST changes: +AMITRIPTYLINE H10 M1 PO; +LASIX40 MG PO; +LISINOPRIL5 MG PO; +PLAVIX75 M1 PO; +POTASSIUM CHLO20 ME3 PO
[2020-11-11 08:26] LABS: BASO # 0.1 10*3/uL (0.0-0.1); BASO % 0.5 % (0.0-1.0); EOS # 0.4 10*3/uL (0.0-0.4); EOS % 4.4 % (1.0-4.0); HEMATOCRIT 30.5 % (37.0-47.0); LYMPH # 1.1 10*3/uL (1.3-4.4); LYMPH % 12.2 % (27.0-41.0); MEAN CELL VOLUME 88.9 fl (81.0-99.0); MEAN CORPUSCULAR HGB 27.1 pg (27.0-31.0); MEAN CORPUSCULAR HGB CONC 30.5 g/dl (33.0-37.0); MEAN PLATELET VOLUME 9.4 fl (9.6-12.3); MONO # 0.7 10*3/uL (0.1-1.0); MONO % 7.7 % (3.0-9.0); NEUT # 6.9 10*3/uL (2.3-7.9); PLATELET COUNT AUTOMATED 265 10*3/uL (130-400); RED BLOOD COUNT 3.43 10*6/uL (4.10-5.10); RED CELL DISTRI WIDTH 15.8 % (0-14.5); WHITE BLOOD COUNT 9.2 10*3/uL (4.8-10.8)
[2020-11-11 08:37] LABS: ACT PARTIAL THROMBO TIME 28.9 SECONDS (20.0-32.1); INTERNATIONAL NORM RATIO 1.1 (2.0-3.5)
[2020-11-11 09:12] LABS: ALBUMIN 3.5 gm/dl (3.1-4.5); ALKALINE PHOSPHATASE 96 U/L (45-117); BUN 12 mg/dl (7-24); CHLORIDE 105 mmol/L (98-107); CREATININE 0.72 mg/dL (0.55-1.02); POTASSIUM 3.7 mmol/L (3.5-5.1); SGOT/AST 11 IU/L (3-35); SGPT/ALT 12 U/L (12-78); SODIUM 137 mmol/L (136-145); TOTAL PROTEIN 8.5 gm/dL (6.4-8.2)
[2020-11-11 09:14] LABS: TROPONIN I 0.085 ng/ml (<0.045)
== END 2020-11-11 10:45 | disposition short-term general hospital (02) ==
LOC: ED 08:06
PROVIDERS: Internal Medicine
DX: I24.9 Acute ischemic heart disease, unspecified (principal); Z88.0 Allergy status to penicillin; Z79.899 Other long term (current) drug therapy; Z98.890 Other specified postprocedural states; Z95.818 Presence of other cardiac implants and grafts; Z87.891 Personal history of nicotine dependence

== ENCOUNTER → 2020-12-02 | Outpatient (CLI) | payer OTHER, MEDICAID ==
[2020-12-02] VITALS (11 sets, daily range): BP systolic 71–140; BP diastolic 33–77
== END | disposition home or self-care (01) ==
LOC: TRNFUSION 00:32
PROVIDERS: ATTEND Physician Assistant
DX: D64.9 Anemia, unspecified (principal); I10 Essential (primary) hypertension; F32.9 Major depressive disorder, single episode, unspecified; I25.2 Old myocardial infarction; J44.9 Chronic obstructive pulmonary disease, unspecified; E78.00 Pure hypercholesterolemia, unspecified; Z86.73 Personal history of transient ischemic attack (TIA), and cerebral infarction without residual deficits

== ENCOUNTER 2021-01-21 14:37 | Inpatient (IN) | payer OTHER, MEDICAID ==
[~2021-01-21] VITALS: Ht 154.9 cm; Wt 54.4 kg
[2021-01-21 14:40] VITALS: BP 82/46
[2021-01-21 14:49] VITALS: BP 90/51
[2021-01-21 14:56] LABS: BASO % 0.5 % (0.0-1.0); EOS # 0.4 10*3/uL (0.0-0.4); EOS % 4.9 % (1.0-4.0); HEMATOCRIT 33.1 % (37.0-47.0); LYMPH # 1.2 10*3/uL (1.3-4.4); LYMPH % 14.7 % (27.0-41.0); MEAN CELL VOLUME 92.2 fl (81.0-99.0); MEAN CORPUSCULAR HGB 28.7 pg (27.0-31.0); MEAN CORPUSCULAR HGB CONC 31.1 g/dl (33.0-37.0); MEAN PLATELET VOLUME 10.5 fl (9.6-12.3); MONO # 0.6 10*3/uL (0.1-1.0); NEUT # 5.8 10*3/uL (2.3-7.9); NEUT % 71.7 % (47.0-73.0); PLATELET COUNT AUTOMATED 251 10*3/uL (130-400); RED BLOOD COUNT 3.59 10*6/uL (4.10-5.10); RED CELL DISTRI WIDTH 16.4 % (0-14.5)
[2021-01-21 15:14] VITALS: BP 76/41
[2021-01-21 15:19] LABS: ALBUMIN 3.8 gm/dl (3.1-4.5); CREATININE 3.04 mg/dL (0.55-1.02); POTASSIUM 4.7 mmol/L (3.5-5.1); TOTAL PROTEIN 8.6 gm/dL (6.4-8.2)
[2021-01-21 15:21] LABS: TROPONIN I 1.06 ng/ml (<0.045)
[2021-01-21 16:03] VITALS: BP 100/52
[2021-01-21] MEDS ORDERED: COREG3.125 MG PO (17:29)
[2021-01-21] MEDS ORDERED: RESTORIL15 MG PO (17:29)
[2021-01-21] MEDS ORDERED: LASIX40 MG PO (17:29)
[2021-01-21 17:30] VITALS: BP 109/65
[2021-01-21] MEDS ORDERED: DIOVAN40 MG PO (17:30)
[2021-01-21] MEDS ORDERED: GABAPENTIN100 M2 PO (17:30)
[2021-01-21] MEDS ORDERED: POTASSIUM CHLO20 ME3 PO (17:31)
[2021-01-21] MEDS ORDERED: BRILINTA90 M1 PO (17:32)
[2021-01-21 19:17] LABS: BASO % 0.6 % (0.0-1.0); EOS # 0.4 10*3/uL (0.0-0.4); EOS % 5.7 % (1.0-4.0); HEMATOCRIT 29.5 % (37.0-47.0); LYMPH # 1.2 10*3/uL (1.3-4.4); LYMPH % 16.3 % (27.0-41.0); MEAN CELL VOLUME 91.6 fl (81.0-99.0); MEAN CORPUSCULAR HGB 28.9 pg (27.0-31.0); MEAN CORPUSCULAR HGB CONC 31.5 g/dl (33.0-37.0); MEAN PLATELET VOLUME 10.5 fl (9.6-12.3); MONO # 0.7 10*3/uL (0.1-1.0); MONO % 9.3 % (3.0-9.0); NEUT # 4.9 10*3/uL (2.3-7.9); NEUT % 67.8 % (47.0-73.0); PLATELET COUNT AUTOMATED 220 10*3/uL (130-400); RED BLOOD COUNT 3.22 10*6/uL (4.10-5.10); RED CELL DISTRI WIDTH 16.1 % (0-14.5); WHITE BLOOD COUNT 7.2 10*3/uL (4.8-10.8)
[2021-01-21 20:00] VITALS: BP 104/59
[2021-01-21 20:55] LABS: ALBUMIN 3.2 gm/dl (3.1-4.5); CREATININE 1.95 mg/dL (0.55-1.02); POTASSIUM 4.2 mmol/L (3.5-5.1)
[2021-01-21 22:31] LABS: BASO % 0.4 % (0.0-1.0); EOS # 0.4 10*3/uL (0.0-0.4); EOS % 4.5 % (1.0-4.0); HEMATOCRIT 29.6 % (37.0-47.0); LYMPH # 0.9 10*3/uL (1.3-4.4); LYMPH % 10.8 % (27.0-41.0); MEAN CELL VOLUME 92.5 fl (81.0-99.0); MEAN CORPUSCULAR HGB 28.8 pg (27.0-31.0); MEAN CORPUSCULAR HGB CONC 31.1 g/dl (33.0-37.0); MEAN PLATELET VOLUME 10.6 fl (9.6-12.3); MONO # 0.7 10*3/uL (0.1-1.0); MONO % 8.6 % (3.0-9.0); NEUT # 6.3 10*3/uL (2.3-7.9); NEUT % 75.5 % (47.0-73.0); PLATELET COUNT AUTOMATED 201 10*3/uL (130-400); RED CELL DISTRI WIDTH 16.1 % (0-14.5); WHITE BLOOD COUNT 8.4 10*3/uL (4.8-10.8)
[2021-01-21 22:45] LABS: ALBUMIN 3.2 gm/dl (3.1-4.5); CREATININE 1.74 mg/dL (0.55-1.02); POTASSIUM 4.1 mmol/L (3.5-5.1)
[2021-01-22] VITALS (19 sets, daily range): BP systolic 84–157; BP diastolic 40–84
[2021-01-22 06:19] LABS: ALBUMIN 3.2 gm/dl (3.1-4.5); POTASSIUM 4.4 mmol/L (3.5-5.1)
[2021-01-22 06:25] LABS: CREATININE 1.26 mg/dL (0.55-1.02); FREE T4 0.94 ng/dl (0.76-1.46); THYROID STIM HORMONE (HS) 0.882 uIU/ml (0.358-4.75); TOTAL PROTEIN 7.4 gm/dL (6.4-8.2)
[2021-01-22 06:27] LABS: BASO % 0.7 % (0.0-1.0); EOS # 0.3 10*3/uL (0.0-0.4); EOS % 5.5 % (1.0-4.0); HEMATOCRIT 31.3 % (37.0-47.0); LYMPH # 0.9 10*3/uL (1.3-4.4); LYMPH % 15.5 % (27.0-41.0); MEAN CELL VOLUME 94.6 fl (81.0-99.0); MEAN CORPUSCULAR HGB 28.4 pg (27.0-31.0); MONO # 0.5 10*3/uL (0.1-1.0); MONO % 8.3 % (3.0-9.0); NEUT # 3.9 10*3/uL (2.3-7.9); NEUT % 69.6 % (47.0-73.0); PLATELET COUNT AUTOMATED 211 10*3/uL (130-400); RED BLOOD COUNT 3.31 10*6/uL (4.10-5.10); WHITE BLOOD COUNT 5.7 10*3/uL (4.8-10.8)
[2021-01-22 07:17] LABS: ACT PARTIAL THROMBO TIME 27.9 SECONDS (20.0-32.1); INTERNATIONAL NORM RATIO 1.1 (2.0-3.5)
[2021-01-23] VITALS (17 sets, daily range): BP systolic 89–118; BP diastolic 45–80
[2021-01-23 06:16] LABS: BASO % 0.6 % (0.0-1.0); EOS # 0.3 10*3/uL (0.0-0.4); EOS % 6.6 % (1.0-4.0); HEMATOCRIT 26.8 % (37.0-47.0); LYMPH # 1.1 10*3/uL (1.3-4.4); LYMPH % 21.1 % (27.0-41.0); MEAN CELL VOLUME 93.7 fl (81.0-99.0); MEAN CORPUSCULAR HGB 28.3 pg (27.0-31.0); MEAN CORPUSCULAR HGB CONC 30.2 g/dl (33.0-37.0); MEAN PLATELET VOLUME 11.1 fl (9.6-12.3); MONO # 0.6 10*3/uL (0.1-1.0); MONO % 10.7 % (3.0-9.0); NEUT # 3.1 10*3/uL (2.3-7.9); NEUT % 60.8 % (47.0-73.0); PLATELET COUNT AUTOMATED 185 10*3/uL (130-400); RED BLOOD COUNT 2.86 10*6/uL (4.10-5.10); RED CELL DISTRI WIDTH 16.2 % (0-14.5); WHITE BLOOD COUNT 5.2 10*3/uL (4.8-10.8)
[2021-01-23 06:33] LABS: ALBUMIN 2.8 gm/dl (3.1-4.5); ALKALINE PHOSPHATASE 65 U/L (45-117); CHLORIDE 114 mmol/L (98-107); SGOT/AST 14 IU/L (3-35); SGPT/ALT 11 U/L (12-78); SODIUM 137 mmol/L (136-145); TOTAL PROTEIN 6.6 gm/dL (6.4-8.2)
[2021-01-23 06:40] LABS: BUN 21 mg/dl (7-24)
[2021-01-24] VITALS: BP 102/64
[2021-01-24 04:00] VITALS: BP 106/56
[2021-01-24 05:11] LABS: ALBUMIN 3.1 gm/dl (3.1-4.5); ALKALINE PHOSPHATASE 67 U/L (45-117); BUN 15 mg/dl (7-24); CHLORIDE 110 mmol/L (98-107); CREATININE 0.59 mg/dL (0.55-1.02); POTASSIUM 4.5 mmol/L (3.5-5.1); SGOT/AST 16 IU/L (3-35); SGPT/ALT 11 U/L (12-78); SODIUM 138 mmol/L (136-145); TOTAL PROTEIN 7.2 gm/dL (6.4-8.2)
[2021-01-24 06:15] LABS: BASO % 0.7 % (0.0-1.0); EOS # 0.5 10*3/uL (0.0-0.4); EOS % 8.4 % (1.0-4.0); HEMATOCRIT 28.6 % (37.0-47.0); LYMPH # 1.1 10*3/uL (1.3-4.4); LYMPH % 21.2 % (27.0-41.0); MEAN CELL VOLUME 92.6 fl (81.0-99.0); MEAN CORPUSCULAR HGB 28.8 pg (27.0-31.0); MEAN CORPUSCULAR HGB CONC 31.1 g/dl (33.0-37.0); MEAN PLATELET VOLUME 11.2 fl (9.6-12.3); MONO # 0.6 10*3/uL (0.1-1.0); MONO % 10.5 % (3.0-9.0); NEUT # 3.2 10*3/uL (2.3-7.9); PLATELET COUNT AUTOMATED 202 10*3/uL (130-400); RED BLOOD COUNT 3.09 10*6/uL (4.10-5.10); RED CELL DISTRI WIDTH 16.4 % (0-14.5); WHITE BLOOD COUNT 5.3 10*3/uL (4.8-10.8)
[2021-01-24 08:00] VITALS: BP 120/66
[2021-01-24 16:00] VITALS: BP 104/57
[2021-01-24 20:00] VITALS: BP 98/58
[2021-01-25] VITALS: BP 102/55
[2021-01-25 06:18] LABS: BASO % 0.5 % (0.0-1.0); EOS # 0.5 10*3/uL (0.0-0.4); EOS % 6.8 % (1.0-4.0); HEMATOCRIT 29.1 % (37.0-47.0); LYMPH % 15.5 % (27.0-41.0); MEAN CELL VOLUME 91.8 fl (81.0-99.0); MEAN CORPUSCULAR HGB 28.4 pg (27.0-31.0); MEAN CORPUSCULAR HGB CONC 30.9 g/dl (33.0-37.0); MEAN PLATELET VOLUME 11.2 fl (9.6-12.3); MONO # 0.6 10*3/uL (0.1-1.0); MONO % 8.7 % (3.0-9.0); NEUT # 4.5 10*3/uL (2.3-7.9); NEUT % 68.3 % (47.0-73.0); PLATELET COUNT AUTOMATED 208 10*3/uL (130-400); RED BLOOD COUNT 3.17 10*6/uL (4.10-5.10); RED CELL DISTRI WIDTH 16.3 % (0-14.5); WHITE BLOOD COUNT 6.6 10*3/uL (4.8-10.8)
[2021-01-25 08:00] VITALS: BP 110/70
[2021-01-25 12:00] VITALS: BP 88/61
[2021-01-25 16:00] VITALS: BP 96/57
[2021-01-25 20:00] VITALS: BP 101/68
[2021-01-26] VITALS (8 sets, daily range): BP systolic 95–158; BP diastolic 60–97
[2021-01-26 05:17] LABS: BUN 14 mg/dl (7-24); CHLORIDE 109 mmol/L (98-107); CREATININE 0.65 mg/dL (0.55-1.02); POTASSIUM 4.1 mmol/L (3.5-5.1); SODIUM 140 mmol/L (136-145)
[2021-01-26 06:13] LABS: BASO % 0.5 % (0.0-1.0); EOS # 0.3 10*3/uL (0.0-0.4); EOS % 4.7 % (1.0-4.0); HEMATOCRIT 27.8 % (37.0-47.0); LYMPH % 17.2 % (27.0-41.0); MEAN CORPUSCULAR HGB CONC 29.5 g/dl (33.0-37.0); MONO # 0.5 10*3/uL (0.1-1.0); MONO % 9.3 % (3.0-9.0); NEUT # 3.9 10*3/uL (2.3-7.9); NEUT % 67.9 % (47.0-73.0); PLATELET COUNT AUTOMATED 194 10*3/uL (130-400); RED BLOOD COUNT 2.93 10*6/uL (4.10-5.10); RED CELL DISTRI WIDTH 16.2 % (0-14.5); WHITE BLOOD COUNT 5.7 10*3/uL (4.8-10.8)
[2021-01-26 06:40] LABS: MEAN CELL VOLUME 94.9 fl (81.0-99.0)
== END 2021-01-26 12:20 | disposition short-term general hospital (02) | DRG 280 ==
LOC: ED 14:37 → ICCU 16:18 → EDHOLD 16:18 → ICCU 17:13
PROVIDERS: Emergency Medicine; Family Medicine; Internal Medicine; Internal Medicine Nephrology; Physical Medicine & Rehabilitation; ADMIT Internal Medicine; ATTEND Internal Medicine
PROC: 4A02XM4 Measurement of Cardiac Total Activity, External Approach (ICD-10-PCS; principal; 2021-01-24)
PROC: 3E073KZ Introduction of Other Diagnostic Substance into Coronary Artery, Percutaneous Approach (ICD-10-PCS; 2021-01-24)
PROC: 0DJ08ZZ Inspection of Upper Intestinal Tract, Via Natural or Artificial Opening Endoscopic (ICD-10-PCS; 2021-01-26)
PROC: 0DJD8ZZ Inspection of Lower Intestinal Tract, Via Natural or Artificial Opening Endoscopic (ICD-10-PCS; 2021-01-26)
DX: I21.9 Acute myocardial infarction, unspecified (principal); N17.0 Acute kidney failure with tubular necrosis; K29.51 Unspecified chronic gastritis with bleeding; D62 Acute posthemorrhagic anemia; E87.1 Hypo-osmolality and hyponatremia; I50.32 Chronic diastolic (congestive) heart failure; I13.0 Hypertensive heart and chronic kidney disease with heart failure and stage 1 through stage 4 chronic kidney disease, or unspecified chronic kidney disease; R77.8 Other specified abnormalities of plasma proteins; I48.0 Paroxysmal atrial fibrillation; J44.9 Chronic obstructive pulmonary disease, unspecified; I25.118 Atherosclerotic heart disease of native coronary artery with other forms of angina pectoris; I95.89 Other hypotension; E86.1 Hypovolemia; E83.41 Hypermagnesemia; D64.9 Anemia, unspecified; E78.5 Hyperlipidemia, unspecified; I35.0 Nonrheumatic aortic (valve) stenosis; Z86.73 Personal history of transient ischemic attack (TIA), and cerebral infarction without residual deficits; Z88.0 Allergy status to penicillin; Z95.5 Presence of coronary angioplasty implant and graft; Z82.5 Family history of asthma and other chronic lower respiratory diseases; Z82.49 Family history of ischemic heart disease and other diseases of the circulatory system; I25.2 Old myocardial infarction; Z79.51 Long term (current) use of inhaled steroids

== ENCOUNTER 2021-02-11 19:14 | Emergency (ER) | payer OTHER, MEDICAID ==
[~2021-02-11] VITALS: Ht 167.6 cm; Wt 51.3 kg
[~2021-02-11 19:14] MED LIST changes: +BRILINTA90 M1 PO; +DIOVAN40 MG PO; +GABAPENTIN100 M2 PO; +RESTORIL15 MG PO
[2021-02-11 19:51] LABS: BASO % 0.3 % (0.0-1.0); EOS # 0.1 10*3/uL (0.0-0.4); EOS % 0.9 % (1.0-4.0); HEMATOCRIT 33.7 % (37.0-47.0); LYMPH # 0.5 10*3/uL (1.3-4.4); LYMPH % 4.4 % (27.0-41.0); MEAN CELL VOLUME 92.6 fl (81.0-99.0); MEAN CORPUSCULAR HGB 29.4 pg (27.0-31.0); MEAN CORPUSCULAR HGB CONC 31.8 g/dl (33.0-37.0); MEAN PLATELET VOLUME 10.2 fl (9.6-12.3); MONO % 8.7 % (3.0-9.0); NEUT # 10.2 10*3/uL (2.3-7.9); NEUT % 85.2 % (47.0-73.0); PLATELET COUNT AUTOMATED 309 10*3/uL (130-400); RED BLOOD COUNT 3.64 10*6/uL (4.10-5.10); RED CELL DISTRI WIDTH 17.4 % (0-14.5)
[2021-02-11 20:08] LABS: ALBUMIN 2.8 gm/dl (3.1-4.5); ALKALINE PHOSPHATASE 149 U/L (45-117); BUN 18 mg/dl (7-24); CHLORIDE 104 mmol/L (98-107); CREATININE 0.63 mg/dL (0.55-1.02); POTASSIUM 4.5 mmol/L (3.5-5.1); SGOT/AST 336 IU/L (3-35); SGPT/ALT 657 U/L (12-78); SODIUM 136 mmol/L (136-145); TOTAL PROTEIN 7.1 gm/dL (6.4-8.2)
[2021-02-11 20:10] LABS: TROPONIN I 0.621 ng/ml (<0.045)
[2021-02-11 23:10] LABS: ABG BASE EXCESS 2.2 mmol/L (-2.0-2.0); ARTERIAL BLOOD GAS PH 7.432 (7.35-7.45); ARTERIAL BLOOD GAS PO2 126.9 (80-90)
== END 2021-02-12 03:16 | disposition short-term general hospital (02) ==
LOC: ED 19:14
PROVIDERS: Emergency Medicine
DX: I50.9 Heart failure, unspecified (principal); Z20.822 Contact with and (suspected) exposure to COVID-19; J44.9 Chronic obstructive pulmonary disease, unspecified; Z98.61 Coronary angioplasty status; Z88.0 Allergy status to penicillin; Z79.899 Other long term (current) drug therapy; Z98.890 Other specified postprocedural states; Z87.891 Personal history of nicotine dependence

== ENCOUNTER 2021-02-27 14:53 | Inpatient (IN) | payer MEDICARE ==
[~2021-02-27] VITALS: Ht 167.6 cm; Wt 43.7 kg
[2021-02-27 14:58] VITALS: BP 112/67
[2021-02-27 15:58] LABS: BASO # 0.1 10*3/uL (0.0-0.1); BASO % 0.9 % (0.0-1.0); EOS # 0.3 10*3/uL (0.0-0.4); EOS % 3.6 % (1.0-4.0); HEMATOCRIT 38.4 % (37.0-47.0); LYMPH # 0.9 10*3/uL (1.3-4.4); LYMPH % 12.3 % (27.0-41.0); MEAN CELL VOLUME 94.1 fl (81.0-99.0); MEAN CORPUSCULAR HGB 28.7 pg (27.0-31.0); MEAN CORPUSCULAR HGB CONC 30.5 g/dl (33.0-37.0); MEAN PLATELET VOLUME 10.3 fl (9.6-12.3); MONO # 0.6 10*3/uL (0.1-1.0); MONO % 8.6 % (3.0-9.0); NEUT # 5.2 10*3/uL (2.3-7.9); NEUT % 74.3 % (47.0-73.0); PLATELET COUNT AUTOMATED 249 10*3/uL (130-400); RED BLOOD COUNT 4.08 10*6/uL (4.10-5.10)
[2021-02-27 16:14] LABS: ALKALINE PHOSPHATASE 117 U/L (45-117); BUN 27 mg/dl (7-24); CHLORIDE 103 mmol/L (98-107); CREATININE 0.94 mg/dL (0.55-1.02); LIPASE 145 U/L (73-393); POTASSIUM 4.6 mmol/L (3.5-5.1); SGOT/AST 11 IU/L (3-35); SGPT/ALT 34 U/L (12-78); SODIUM 134 mmol/L (136-145); TOTAL PROTEIN 7.8 gm/dL (6.4-8.2)
[2021-02-27 16:15] LABS: TROPONIN I < 0.015 ng/ml (<0.045)
[2021-02-27 18:12] LABS: BILIRUBIN Negative (Negative); BLOOD Negative (Negative); CLARITY Turbid (Clear); COLOR Yellow (Yellow); GLUCOSE Negative (Negative); KETONE Negative (Negative); LEUKO ESTERASE 3+ (Negative); NITRITE Positive (Negative); PH 5.5 (4.5-8.0); SPECIFIC GRAVITY 1.015 (1.001-1.030)
[2021-02-27 18:18] LABS: BACTERIA 4+; MUCOUS TRACE; RBC 0-2 rbc/hpf (0-2); WBC TNTC wbc/hpf (0-5)
[2021-02-28 00:30] VITALS: BP 136/60
[2021-02-28 05:54] LABS: ALBUMIN 2.7 gm/dl (3.1-4.5); ALKALINE PHOSPHATASE 112 U/L (45-117); BUN 30 mg/dl (7-24); CHLORIDE 104 mmol/L (98-107); CREATININE 0.87 mg/dL (0.55-1.02); POTASSIUM 4.7 mmol/L (3.5-5.1); SGOT/AST 10 IU/L (3-35); SGPT/ALT 29 U/L (12-78); SODIUM 133 mmol/L (136-145); TOTAL PROTEIN 7.5 gm/dL (6.4-8.2)
[2021-02-28 07:01] LABS: ACT PARTIAL THROMBO TIME 30.9 SECONDS (20.0-32.1); INTERNATIONAL NORM RATIO 1.1 (2.0-3.5)
[2021-02-28 07:02] LABS: HEMATOCRIT 35.8 % (37.0-47.0); MEAN CORPUSCULAR HGB 29.2 pg (27.0-31.0); MEAN CORPUSCULAR HGB CONC 30.7 g/dl (33.0-37.0); MEAN PLATELET VOLUME 10.9 fl (9.6-12.3); PLATELET COUNT AUTOMATED 239 10*3/uL (130-400); RED BLOOD COUNT 3.77 10*6/uL (4.10-5.10); RED CELL DISTRI WIDTH 16.9 % (0-14.5); WHITE BLOOD COUNT 5.7 10*3/uL (4.8-10.8)
[2021-02-28 07:10] VITALS: BP 108/66
[2021-02-28 07:45] VITALS: BP 126/88
[2021-02-28 08:09] LABS: ACANTHOCYTES FEW; PLATELET SUFFICIENCY NORMAL (NORMAL); TOTAL CELLS COUNTED 100 #CELLS
[2021-02-28] MEDS ORDERED: DOCUSATE SOD100 MG PO (10:32)
[2021-02-28] MEDS ORDERED: FEROSUL325 M1 PO (10:32)
[2021-02-28] MEDS ORDERED: AMIODARONE HYD200 MG PO (10:32)
[2021-02-28] MEDS ORDERED: METOPROLOL SUCC25 M2 PO (10:40)
[2021-02-28] MEDS ORDERED: ASPIRIN ADULT L81 M2 PO (10:42)
[2021-02-28] MEDS ORDERED: ALDACTONE25 MG PO (10:44)
[2021-02-28] MEDS ORDERED: BRILINTA90 M1 PO (11:02)
[2021-02-28] MEDS ORDERED: VITAMIN C500 M4 PO (11:05)
[2021-02-28 12:00] VITALS: BP 107/57
[2021-02-28] MEDS ORDERED: PREDNISONE10 MG PO (14:40)
[2021-02-28 16:00] VITALS: BP 112/63
== END 2021-02-28 16:33 | disposition home or self-care (01) | DRG 139 ==
LOC: ED 14:53 → 5E 17:26 → EDHOLD 17:26 → 5E 02-28 06:58
PROVIDERS: Internal Medicine; Physician Assistant; ADMIT Family Medicine; ATTEND Family Medicine
DX: J18.9 Pneumonia, unspecified organism (principal); E87.1 Hypo-osmolality and hyponatremia; J44.1 Chronic obstructive pulmonary disease with (acute) exacerbation; R82.71 Bacteriuria; G25.0 Essential tremor; R11.2 Nausea with vomiting, unspecified; R00.1 Bradycardia, unspecified; D64.9 Anemia, unspecified; E83.41 Hypermagnesemia; R79.82 Elevated C-reactive protein (CRP); J44.0 Chronic obstructive pulmonary disease with (acute) lower respiratory infection; E78.5 Hyperlipidemia, unspecified; I11.0 Hypertensive heart disease with heart failure; R29.6 Repeated falls; I25.810 Atherosclerosis of coronary artery bypass graft(s) without angina pectoris; I48.0 Paroxysmal atrial fibrillation; M19.90 Unspecified osteoarthritis, unspecified site; M81.0 Age-related osteoporosis without current pathological fracture; I50.42 Chronic combined systolic (congestive) and diastolic (congestive) heart failure; I25.5 Ischemic cardiomyopathy; F32.9 Major depressive disorder, single episode, unspecified; I25.2 Old myocardial infarction; Z86.14 Personal history of Methicillin resistant Staphylococcus aureus infection; Z86.73 Personal history of transient ischemic attack (TIA), and cerebral infarction without residual deficits; Z88.0 Allergy status to penicillin; Z98.1 Arthrodesis status; Z95.5 Presence of coronary angioplasty implant and graft; Z82.5 Family history of asthma and other chronic lower respiratory diseases; Z81.8 Family history of other mental and behavioral disorders; Z82.49 Family history of ischemic heart disease and other diseases of the circulatory system; Z87.891 Personal history of nicotine dependence; Z79.82 Long term (current) use of aspirin; Z79.899 Other long term (current) drug therapy; Z79.02 Long term (current) use of antithrombotics/antiplatelets; Z95.2 Presence of prosthetic heart valve; E44.0 Moderate protein-calorie malnutrition

== ENCOUNTER 2021-03-20 10:05 | Emergency (ER) | payer MEDICARE ==
[~2021-03-20] VITALS: Ht 167.6 cm; Wt 43.1 kg
[~2021-03-20 10:05] MED LIST changes: +ALDACTONE25 MG PO; +AMIODARONE HYD200 MG PO; +ASPIRIN ADULT L81 M2 PO; +DOCUSATE SOD100 MG PO; +FEROSUL325 M1 PO; +METOPROLOL SUCC25 M2 PO; +PREDNISONE10 MG PO; +VITAMIN C500 M4 PO
[2021-03-20 11:11] LABS: BASO % 0.1 % (0.0-1.0); EOS # 0.6 10*3/uL (0.0-0.4); EOS % 8.3 % (1.0-4.0); HEMATOCRIT 28.5 % (37.0-47.0); LYMPH # 0.7 10*3/uL (1.3-4.4); LYMPH % 9.8 % (27.0-41.0); MEAN CELL VOLUME 94.4 fl (81.0-99.0); MEAN CORPUSCULAR HGB 28.5 pg (27.0-31.0); MEAN CORPUSCULAR HGB CONC 30.2 g/dl (33.0-37.0); MEAN PLATELET VOLUME 10.1 fl (9.6-12.3); MONO # 0.4 10*3/uL (0.1-1.0); MONO % 5.7 % (3.0-9.0); NEUT # 5.5 10*3/uL (2.3-7.9); NEUT % 75.8 % (47.0-73.0); PLATELET COUNT AUTOMATED 145 10*3/uL (130-400); RED BLOOD COUNT 3.02 10*6/uL (4.10-5.10); RED CELL DISTRI WIDTH 18.1 % (0-14.5); WHITE BLOOD COUNT 7.2 10*3/uL (4.8-10.8)
[2021-03-20 11:29] LABS: ALBUMIN 2.3 gm/dl (3.1-4.5); ALKALINE PHOSPHATASE 58 U/L (45-117); BUN 19 mg/dl (7-24); CHLORIDE 104 mmol/L (98-107); POTASSIUM 4.8 mmol/L (3.5-5.1); SGOT/AST 10 IU/L (3-35); SGPT/ALT 16 U/L (12-78); SODIUM 136 mmol/L (136-145); TOTAL PROTEIN 6.2 gm/dL (6.4-8.2)
[2021-03-20 11:31] LABS: TROPONIN I < 0.015 ng/ml (<0.045)
[2021-03-20] MEDS ORDERED: PREDNISONE20 M1 PO ×3 (13:08→13:24)
[2021-03-20] MEDS ORDERED: VIBRAMYCIN100 MG PO ×3 (13:08→13:24)
== END 2021-03-20 13:14 | disposition home or self-care (01) ==
LOC: ED 10:05
PROVIDERS: Emergency Medicine
DX: J44.1 Chronic obstructive pulmonary disease with (acute) exacerbation (principal); J18.9 Pneumonia, unspecified organism; M54.2 Cervicalgia; F12.90 Cannabis use, unspecified, uncomplicated; I25.2 Old myocardial infarction; Z98.890 Other specified postprocedural states; Z95.1 Presence of aortocoronary bypass graft; Z86.73 Personal history of transient ischemic attack (TIA), and cerebral infarction without residual deficits; Z79.82 Long term (current) use of aspirin; Z79.899 Other long term (current) drug therapy; Z88.0 Allergy status to penicillin

== ENCOUNTER → 2021-08-25 | Outpatient (CLI) | payer OTHER ==
[~2021-08-25] MED LIST changes: +DELZICOL400 M2 PO; +ENTRESTO 24 MG1 EACH PO; +FUROSEMIDE20 M1 PO; +OMNICEF300 MG PO; +PREDNISONE20 M1 PO; +VALSARTAN40 MG PO; +VIBRAMYCIN100 MG PO; +VITAMIN D350 MC2 PO
[2021-08-25 15:01] LABS: CREATININE 0.84 mg/dL (0.55-1.02)
== END | disposition home or self-care (01) ==
LOC: LAB 13:57
PROVIDERS: ATTEND Surgery
DX: K56.609 Unspecified intestinal obstruction, unspecified as to partial versus complete obstruction (principal)

== ENCOUNTER → 2021-08-26 | Outpatient (CLI) | payer OTHER | END | disposition home or self-care (01) | LOC: CT 01:26 | PROVIDERS: ATTEND Surgery | DX: N13.39 Other hydronephrosis (principal); K56.609 Unspecified intestinal obstruction, unspecified as to partial versus complete obstruction ==

== ENCOUNTER 2021-09-07 08:18 | Inpatient (IN) | payer OTHER ==
[~2021-09-07] VITALS: Ht 165.1 cm; Wt 45.8 kg
[2021-09-07 08:22] VITALS: BP 133/75
[2021-09-07 09:03] LABS: BASO % 0.7 % (0.0-1.0); EOS # 0.3 10*3/uL (0.0-0.4); EOS % 5.5 % (1.0-4.0); HEMATOCRIT 31.7 % (37.0-47.0); LYMPH # 1.1 10*3/uL (1.3-4.4); LYMPH % 20.3 % (27.0-41.0); MEAN CELL VOLUME 90.8 fl (81.0-99.0); MEAN CORPUSCULAR HGB 28.1 pg (27.0-31.0); MEAN CORPUSCULAR HGB CONC 30.9 g/dl (33.0-37.0); MEAN PLATELET VOLUME 10.2 fl (9.6-12.3); MONO # 0.5 10*3/uL (0.1-1.0); MONO % 8.7 % (3.0-9.0); NEUT # 3.5 10*3/uL (2.3-7.9); NEUT % 64.4 % (47.0-73.0); PLATELET COUNT AUTOMATED 193 10*3/uL (130-400); RED BLOOD COUNT 3.49 10*6/uL (4.10-5.10); RED CELL DISTRI WIDTH 16.9 % (0-14.5); WHITE BLOOD COUNT 5.4 10*3/uL (4.8-10.8)
[2021-09-07 09:17] LABS: ALKALINE PHOSPHATASE 66 U/L (45-117); BUN 15 mg/dl (7-24); CHLORIDE 109 mmol/L (98-107); CREATININE 0.77 mg/dL (0.55-1.02); LIPASE 102 U/L (73-393); SGOT/AST 6 IU/L (3-35); SGPT/ALT 9 U/L (12-78); SODIUM 138 mmol/L (136-145); TOTAL PROTEIN 7.4 gm/dL (6.4-8.2)
[2021-09-07 11:18] LABS: BILIRUBIN Negative (Negative); BLOOD Negative (Negative); CLARITY Cloudy (Clear); COLOR Yellow (Yellow); GLUCOSE Negative (Negative); KETONE Negative (Negative); LEUKO ESTERASE Negative (Negative); NITRITE Negative (Negative); PH 6.5 (4.5-8.0); SPECIFIC GRAVITY 1.015 (1.001-1.030); UROBILINOGEN 0.2 E.U./dl (0.0-1.0)
[2021-09-07 11:31] LABS: RBC 0-2 rbc/hpf (0-2)
[2021-09-07 13:08] VITALS: BP 127/80
[2021-09-07 16:00] VITALS: BP 172/71
[2021-09-07 20:00] VITALS: BP 117/75
[2021-09-08] VITALS (10 sets, daily range): BP systolic 120–160; BP diastolic 79–92
[2021-09-08 06:21] LABS: BASO % 0.6 % (0.0-1.0); EOS # 0.3 10*3/uL (0.0-0.4); EOS % 4.7 % (1.0-4.0); HEMATOCRIT 36.7 % (37.0-47.0); LYMPH # 1.8 10*3/uL (1.3-4.4); LYMPH % 26.3 % (27.0-41.0); MEAN CORPUSCULAR HGB 27.7 pg (27.0-31.0); MEAN CORPUSCULAR HGB CONC 30.8 g/dl (33.0-37.0); MEAN PLATELET VOLUME 10.4 fl (9.6-12.3); MONO # 0.6 10*3/uL (0.1-1.0); MONO % 8.7 % (3.0-9.0); NEUT # 4.1 10*3/uL (2.3-7.9); NEUT % 59.6 % (47.0-73.0); PLATELET COUNT AUTOMATED 246 10*3/uL (130-400); RED BLOOD COUNT 4.08 10*6/uL (4.10-5.10); RED CELL DISTRI WIDTH 16.7 % (0-14.5); WHITE BLOOD COUNT 6.9 10*3/uL (4.8-10.8)
[2021-09-08 06:44] LABS: ALKALINE PHOSPHATASE 74 U/L (45-117); BUN 10 mg/dl (7-24); CHLORIDE 107 mmol/L (98-107); CHOLESTEROL 254 mg/dL (<200); CREATININE 0.77 mg/dL (0.55-1.02); FREE T4 1.31 ng/dl (0.76-1.46); LDL CHOLESTEROL 163 mg/dL (9-159); POTASSIUM 3.7 mmol/L (3.5-5.1); SGOT/AST 8 IU/L (3-35); SGPT/ALT 10 U/L (12-78); SODIUM 141 mmol/L (136-145); TOTAL PROTEIN 8.5 gm/dL (6.4-8.2); TRIGLYCERIDES 114 mg/dl (<150)
[2021-09-08 07:33] LABS: ACT PARTIAL THROMBO TIME 29.3 SECONDS (20.0-32.1)
[2021-09-08 12:36] LABS: VITAMIN D, 25-HYDROXY 36.3 ng/mL (30-100)
[2021-09-08] MEDS ORDERED: FAMOTIDINE20 M1 PO (15:28)
[2021-09-08] MEDS ORDERED: VALSARTAN40 MG PO (15:34)
[2021-09-08] MEDS ORDERED: ALDACTONE25 MG PO (15:34)
[2021-09-08] MEDS ORDERED: LORAZEPAM0.5 MG PO (15:35)
[2021-09-09] VITALS: BP 140/76
[2021-09-09 06:24] LABS: HEMATOCRIT 29.5 % (37.0-47.0); LYMPH # 0.6 10*3/uL (1.3-4.4); LYMPH % 5.6 % (27.0-41.0); MEAN CELL VOLUME 89.9 fl (81.0-99.0); MEAN CORPUSCULAR HGB 27.7 pg (27.0-31.0); MEAN CORPUSCULAR HGB CONC 30.8 g/dl (33.0-37.0); MEAN PLATELET VOLUME 10.6 fl (9.6-12.3); MONO # 0.8 10*3/uL (0.1-1.0); MONO % 7.5 % (3.0-9.0); NEUT # 8.7 10*3/uL (2.3-7.9); NEUT % 86.6 % (47.0-73.0); PLATELET COUNT AUTOMATED 219 10*3/uL (130-400); RED BLOOD COUNT 3.28 10*6/uL (4.10-5.10); RED CELL DISTRI WIDTH 16.8 % (0-14.5)
[2021-09-09 06:33] LABS: BUN 13 mg/dl (7-24); CHLORIDE 109 mmol/L (98-107); CREATININE 0.67 mg/dL (0.55-1.02); POTASSIUM 3.9 mmol/L (3.5-5.1); SODIUM 139 mmol/L (136-145)
[2021-09-09 08:21] VITALS: BP 122/71
[2021-09-09 12:00] VITALS: BP 133/81
[2021-09-09 16:00] VITALS: BP 129/78
[2021-09-09 20:00] VITALS: BP 120/74
[2021-09-10] VITALS: BP 149/78
[2021-09-10 08:00] VITALS: BP 136/81
[2021-09-10 12:00] VITALS: BP 137/79
[2021-09-10 16:00] VITALS: BP 133/83
[2021-09-10 20:00] VITALS: BP 156/98
[2021-09-11] VITALS: BP 140/92
[2021-09-11 08:00] VITALS: BP 111/76
[2021-09-11 12:00] VITALS: BP 123/77
[2021-09-11 16:01] VITALS: BP 149/95
[2021-09-11 20:00] VITALS: BP 138/87
[2021-09-12] VITALS: BP 138/84; BP 167/97
[2021-09-12 06:19] LABS: BASO % 0.4 % (0.0-1.0); BUN 6 mg/dl (7-24); CHLORIDE 106 mmol/L (98-107); CREATININE 0.59 mg/dL (0.55-1.02); EOS # 0.7 10*3/uL (0.0-0.4); HEMATOCRIT 31.4 % (37.0-47.0); LYMPH % 13.3 % (27.0-41.0); MEAN CORPUSCULAR HGB 27.7 pg (27.0-31.0); MEAN CORPUSCULAR HGB CONC 31.5 g/dl (33.0-37.0); MEAN PLATELET VOLUME 10.6 fl (9.6-12.3); MONO # 0.6 10*3/uL (0.1-1.0); MONO % 7.7 % (3.0-9.0); NEUT % 68.3 % (47.0-73.0); PLATELET COUNT AUTOMATED 251 10*3/uL (130-400); POTASSIUM 3.6 mmol/L (3.5-5.1); RED BLOOD COUNT 3.57 10*6/uL (4.10-5.10); RED CELL DISTRI WIDTH 16.5 % (0-14.5); SODIUM 138 mmol/L (136-145); WHITE BLOOD COUNT 7.3 10*3/uL (4.8-10.8)
[2021-09-12 08:00] VITALS: BP 155/94
[2021-09-12 12:00] VITALS: BP 119/86; BP 136/73
[2021-09-12 16:00] VITALS: BP 127/74; BP 142/88
[2021-09-12 20:00] VITALS: BP 140/92
[2021-09-13] VITALS: BP 104/59
[2021-09-13 09:08] VITALS: BP 143/84
[2021-09-13] MEDS ORDERED: HYDROCODONE-AC1 EAC1 PO (11:24)
[2021-09-13] MEDS ORDERED: DOCUSATE SOD100 MG PO (11:25)
[2021-09-13 12:00] VITALS: BP 148/96
== END 2021-09-13 15:25 | disposition home health service (06) | DRG 327 ==
LOC: ED 08:18 → 4E 11:42 → EDHOLD 11:42 → 4E 12:57
PROVIDERS: Emergency Medicine; Internal Medicine; Registered Nurse; ADMIT Internal Medicine; ATTEND Internal Medicine
PROC: 0DTF0ZZ Resection of Right Large Intestine, Open Approach (ICD-10-PCS; principal; 2021-09-08)
PROC: 0DBW0ZX Excision of Peritoneum, Open Approach, Diagnostic (ICD-10-PCS; 2021-09-08)
PROC: 0DJ64ZZ Inspection of Stomach, Percutaneous Endoscopic Approach (ICD-10-PCS; 2021-09-08)
PROC: 3E0T3BZ Introduction of Anesthetic Agent into Peripheral Nerves and Plexi, Percutaneous Approach (ICD-10-PCS; 2021-09-08)
DX: K63.89 Other specified diseases of intestine (principal); I50.32 Chronic diastolic (congestive) heart failure; C80.0 Disseminated malignant neoplasm, unspecified; Z68.1 Body mass index [BMI] 19.9 or less, adult; Z20.822 Contact with and (suspected) exposure to COVID-19; D64.9 Anemia, unspecified; E87.8 Other disorders of electrolyte and fluid balance, not elsewhere classified; R73.9 Hyperglycemia, unspecified; R62.7 Adult failure to thrive; I10 Essential (primary) hypertension; F32.A Depression, unspecified; E78.5 Hyperlipidemia, unspecified; M19.90 Unspecified osteoarthritis, unspecified site; M81.0 Age-related osteoporosis without current pathological fracture; I48.0 Paroxysmal atrial fibrillation; G25.0 Essential tremor; J44.9 Chronic obstructive pulmonary disease, unspecified; I25.10 Atherosclerotic heart disease of native coronary artery without angina pectoris; Z95.1 Presence of aortocoronary bypass graft; Z88.0 Allergy status to penicillin

== ENCOUNTER 2021-10-11 10:33 | Emergency (ER) | payer OTHER ==
[~2021-10-11] VITALS: Ht 167.6 cm; Wt 44.9 kg
[~2021-10-11 10:33] MED LIST changes: +FAMOTIDINE20 M1 PO; +LORAZEPAM0.5 MG PO
[2021-10-11 11:19] LABS: BASO % 0.3 % (0.0-1.0); EOS # 0.2 10*3/uL (0.0-0.4); EOS % 3.3 % (1.0-4.0); HEMATOCRIT 30.6 % (37.0-47.0); LYMPH % 14.2 % (27.0-41.0); MEAN CELL VOLUME 90.3 fl (81.0-99.0); MEAN CORPUSCULAR HGB 27.7 pg (27.0-31.0); MEAN CORPUSCULAR HGB CONC 30.7 g/dl (33.0-37.0); MEAN PLATELET VOLUME 9.9 fl (9.6-12.3); MONO # 0.5 10*3/uL (0.1-1.0); MONO % 6.8 % (3.0-9.0); NEUT # 5.3 10*3/uL (2.3-7.9); NEUT % 75.1 % (47.0-73.0); PLATELET COUNT AUTOMATED 184 10*3/uL (130-400); RED BLOOD COUNT 3.39 10*6/uL (4.10-5.10); RED CELL DISTRI WIDTH 16.6 % (0-14.5)
[2021-10-11 11:37] LABS: ALKALINE PHOSPHATASE 61 U/L (45-117); BUN 16 mg/dl (7-24); CHLORIDE 108 mmol/L (98-107); CREATININE 0.75 mg/dL (0.55-1.02); POTASSIUM 5.2 mmol/L (3.5-5.1); SGOT/AST 11 IU/L (3-35); SGPT/ALT 9 U/L (12-78); SODIUM 140 mmol/L (136-145); TOTAL PROTEIN 7.2 gm/dL (6.4-8.2)
[2021-10-11 13:50] LABS: BILIRUBIN Negative (Negative); BLOOD Negative (Negative); CLARITY Cloudy (Clear); COLOR Yellow (Yellow); GLUCOSE Negative (Negative); KETONE Negative (Negative); LEUKO ESTERASE 2+ (Negative); NITRITE Positive (Negative); PH 5.5 (4.5-8.0)
[2021-10-11 14:07] LABS: BACTERIA 4+; WBC 51-100 wbc/hpf (0-5)
[2021-10-11] MEDS ORDERED: MACROBID100 M1 PO (14:48)
== END 2021-10-11 14:58 | disposition home or self-care (01) ==
LOC: ED 10:33
PROVIDERS: Physician Assistant
DX: N39.0 Urinary tract infection, site not specified (principal); Z88.0 Allergy status to penicillin; Z79.899 Other long term (current) drug therapy; Z95.1 Presence of aortocoronary bypass graft; Z98.890 Other specified postprocedural states; Z87.891 Personal history of nicotine dependence

== ENCOUNTER 2022-01-02 11:56 | Emergency (ER) | payer OTHER ==
[~2022-01-02] VITALS: Ht 167.6 cm; Wt 40.8 kg
[~2022-01-02 11:56] MED LIST changes: +MACROBID100 M1 PO
[2022-01-02 12:24] LABS: MEAN CELL VOLUME 87.7 fl (81.0-99.0); MEAN CORPUSCULAR HGB 26.9 pg (27.0-31.0); MEAN CORPUSCULAR HGB CONC 30.7 g/dl (33.0-37.0); MEAN PLATELET VOLUME 9.9 fl (9.6-12.3); PLATELET COUNT AUTOMATED 150 10*3/uL (130-400); RED BLOOD COUNT 3.08 10*6/uL (4.10-5.10); RED CELL DISTRI WIDTH 16.6 % (0-14.5); WHITE BLOOD COUNT 2.1 10*3/uL (4.8-10.8)
[2022-01-02 12:25] LABS: MANUAL DIFF REFLEX YES
[2022-01-02 12:35] LABS: ACT PARTIAL THROMBO TIME 24.9 SECONDS (20.0-32.1); INTERNATIONAL NORM RATIO 1.1 (2.0-3.5)
[2022-01-02 12:41] LABS: ALKALINE PHOSPHATASE 70 U/L (45-117); BUN 13 mg/dl (7-24); CHLORIDE 110 mmol/L (98-107); CREATININE 0.65 mg/dL (0.55-1.02); LIPASE 93 U/L (73-393); POTASSIUM 4.5 mmol/L (3.5-5.1); SGOT/AST 11 IU/L (3-35); SGPT/ALT 6 U/L (12-78); SODIUM 141 mmol/L (136-145); TOTAL PROTEIN 6.9 gm/dL (6.4-8.2)
[2022-01-02 12:50] LABS: TOTAL CELLS COUNTED 100 #CELLS
[2022-01-02 12:51] LABS: BURR CELLS FEW; OVALOCYTES FEW; PLATELET SUFFICIENCY NORMAL (NORMAL); POLYCHROMASIA SLIGHT; ROULEAUX SLIGHT; SCHISTOCYTES FEW
[2022-01-02 12:54] LABS: BASOPHILS 1 % (0-1)
[2022-01-02 13:43] LABS: BILIRUBIN Negative (Negative); BLOOD Negative (Negative); CLARITY Turbid (Clear); COLOR Yellow (Yellow); GLUCOSE Negative (Negative); KETONE Negative (Negative); LEUKO ESTERASE 2+ (Negative); NITRITE Negative (Negative); PH 5.5 (4.5-8.0); SPECIFIC GRAVITY 1.015 (1.001-1.030); UROBILINOGEN 0.2 E.U./dl (0.0-1.0)
[2022-01-02 14:21] LABS: BACTERIA 1+; EPITHELIAL CELLS TNTC; MUCOUS 2+
== END 2022-01-02 18:26 | disposition home or self-care (01) ==
LOC: ED 11:56
PROVIDERS: Emergency Medicine
DX: R53.1 Weakness (principal); R25.1 Tremor, unspecified; Z88.0 Allergy status to penicillin; Z79.899 Other long term (current) drug therapy